=== PATIENT | male | born 1965 | race Caucasian/White ===

== ENCOUNTER 2018-02-15 10:29 | Inpatient (IN) | payer MEDICAID ==
[~2018-02-15] VITALS: Ht 190.5 cm; Wt 107.6 kg
[2018-02-15] MEDS ORDERED: OXYC10TA6 PO (10:43)
[2018-02-15] MEDS ORDERED: OXYC40TA27 PO (10:43)
[2018-02-15] MEDS ORDERED: GABA-827 PO (10:43)
[2018-02-15] MEDS ORDERED: methylPREDNISolone SOD SUCC 125 MG/2 ML IVPush ONE (11:00)
[2018-02-15] MEDS ORDERED: ONDANSETRON 2MG/ML, 2ML IVPush ONE (11:00)
[2018-02-15] MEDS ORDERED: ONDANSETRON 2MG/ML, 2ML ONE (11:07)
[2018-02-15] MEDS ORDERED: HYDROmorphone 2 MG/ML, 1ML ONE (11:07)
[2018-02-15] MEDS ORDERED: methylPREDNISolone SOD SUCC 125 MG/2 ML ONE (11:07)
[2018-02-15 11:32] LABS: BASOPHILS # (AUTO) 0.01 x10^3/uL (0-0.1); BASOPHILS % (AUTO) 0 % (0-1); EOSINOPHILS # (AUTO) 0.02 x10^3/uL (0-0.4); EOSINOPHILS % (AUTO) 0 % (1-7); LYMPHOCYTES # (AUTO) 0.35 x10^3/uL (1-3.4); LYMPHOCYTES % (AUTO) 8 % (22-44); MD NO; MEAN CORPUSCULAR HEMOGLOBIN 30.1 pg (27.5-34.5); MEAN CORPUSCULAR HGB CONC 34.3 g/dL (33.2-36.2); MEAN CORPUSCULAR VOLUME 87.9 fL (81-97); MEAN PLATELET VOLUME 6.9 fL (7.4-10.4); MONOCYTES # (AUTO) 0.53 x10^3/uL (0.2-0.8); MONOCYTES % (AUTO) 11 % (2-9); NEUTROPHILS # (AUTO) 3.69 x10^3/uL (1.8-6.8); NEUTROPHILS % (AUTO) 80 % (42-75); PLATELET COUNT 303 x10^3/uL (130-400); RED CELL DISTRIBUTION WIDTH 14.6 % (9.4-14.8)
[2018-02-15] MEDS: HYDROmorphone 2 MG/ML, 1ML IVPush PRN ×2 (11:39→12:02)
[2018-02-15 11:45] LABS: ALANINE AMINOTRANSFERASE 40 U/L (12-78); ALBUMIN 3.5 g/dL (3.4-5.0); CALCIUM 8.4 mg/dL (8.5-10.1); CHLORIDE 106 mmol/L (98-107)
[2018-02-15] MEDS ORDERED: SODIUM CHLORIDE FLUSH 10ML SYR IVF ONE (12:00)
[2018-02-15 12:12] LABS: ALKALINE PHOSPHATASE 94 U/L (45-117); ANION GAP 10 mmol/L (5-15); BILIRUBIN,TOTAL 0.4 mg/dL (0.2-1.0); TOTAL PROTEIN 6.2 g/dL (6.4-8.2)
[2018-02-15] MEDS ORDERED: KETOROLAC 30 MG/1 ML ONE (13:12)
[2018-02-15] MEDS ORDERED: ONDANSETRON 2MG/ML, 2ML IVPush PRN (13:30)
[2018-02-15] MEDS ORDERED: KETOROLAC 30 MG/1 ML IVPush ONE (13:30)
[2018-02-15] MEDS ORDERED: hydrALAzine 20 MG/ML, 1ML IVPush PRN (13:30)
[2018-02-15] MEDS ORDERED: DOCUSATE 100 MG CAPSULE PO PRN (13:30)
[2018-02-15] MEDS ORDERED: POLYETHYLENE GLYCOL 17 GM PACKET PO PRN (13:30)
[2018-02-15] MEDS ORDERED: ACETAMINOPHEN 325 MG TABLET PO PRN (13:30)
[2018-02-15] MEDS ORDERED: BISACODYL 10 MG SUPP PR PRN (13:30)
[2018-02-15] MEDS ORDERED: FURO20TA3 PO (13:58)
[2018-02-15] MEDS ORDERED: CETI10CA PO (13:58)
[2018-02-15] MEDS ORDERED: MONT10TA9 PO (13:58)
[2018-02-15] MEDS ORDERED: [UNRECOGNIZED DRUG - CODE] TP (13:58)
[2018-02-15] MEDS ORDERED: OXYB5TAB7 PO (13:58)
[2018-02-15] MEDS ORDERED: PREG75CA PO (13:58)
[2018-02-15] MEDS ORDERED: BUSP5TAB2 PO (13:58)
[2018-02-15] MEDS ORDERED: METO50TA82 PO (13:58)
[2018-02-15] MEDS ORDERED: DOXY100C PO (13:58)
[2018-02-15] MEDS ORDERED: ASCO500T12 PO (13:58)
[2018-02-15] MEDS ORDERED: POLY17PO5 PO (13:58)
[2018-02-15] MEDS ORDERED: FENO145T30 PO (13:58)
[2018-02-15] MEDS ORDERED: CARI350T PO (13:58)
[2018-02-15] MEDS ORDERED: FERR325T17 PO (13:58)
[2018-02-15] MEDS ORDERED: FAMO20TA7 PO (13:58)
[2018-02-15] MEDS ORDERED: CALC200T3 PO (13:58)
[2018-02-15] MEDS ORDERED: DILTIAZEM 2% TP (13:58)
[2018-02-15] MEDS ORDERED: INDO50CA5 PO (13:58)
[2018-02-15] MEDS ORDERED: POTA20PA25 PO (13:58)
[2018-02-15] MEDS ORDERED: DIME240C PEG (13:58)
[2018-02-15] MEDS ORDERED: CHOL100011 PO (13:58)
[2018-02-15 14:36] VITALS: BP 158/78
[2018-02-15] MEDS ORDERED: ALLO100T30 PO (14:54)
[2018-02-15] MEDS ORDERED: MULT-717 PO (14:54)
[2018-02-15] MEDS ORDERED: CARISOPRODOL 350 MG TABLET PO PRN (15:30)
[2018-02-15] MEDS ORDERED: OxyconTIN ER 40 MG TAB.ER PO SCH (15:30)
[2018-02-15] MEDS ORDERED: OxyconTIN ER 20 MG TAB.ER ONE (15:36)
[2018-02-15] MEDS: ENOXAPARIN 40 MG/0.4 ML SQ SCH (15:41)
[2018-02-15] MEDS: INDOMETHACIN 50 MG CAPSULE PO SCH ×2 (15:41→20:38)
[2018-02-15] MEDS: OXYcodone IR 30 MG TABLET PO PRN ×2 (17:12→21:10)
[2018-02-15] MEDS: METOPROLOL TARTRATE 25 MG TABLET PO SCH (17:12)
[2018-02-15] MEDS ORDERED: OXYMETAZOLINE HCL HOMEMISC PRN (17:30)
[2018-02-15 18:45] VITALS: BP 162/90
[2018-02-15] MEDS ORDERED: KETOROLAC 30 MG/1 ML IV PRN (19:30)
[2018-02-15] MEDS: FENOFIBRATE 145 MG TABLET PO SCH (20:38)
[2018-02-15] MEDS: ALLOPURINOL 100 MG TABLET PO SCH (20:38)
[2018-02-15] MEDS: CALCIUM CARBONATE 500 MG TAB.CHEW PO SCH (20:38)
[2018-02-15] MEDS: FAMOTIDINE 20 MG TABLET PO SCH (20:38)
[2018-02-15] MEDS: PREGABALIN 75 MG CAPSULE PO SCH (20:38)
[2018-02-15] MEDS: SODIUM CHLORIDE FLUSH 10ML SYR IVF SCH (20:39)
[2018-02-15] MEDS: BUSPIRONE 5 MG TABLET PO SCH (20:39)
[2018-02-15] MEDS: DIMETHYL FUMARATE 240 MG PO SCH (20:41)
[2018-02-15] MEDS: DOXYCYCLINE 50MG CAPSULE PO SCH (21:57)
[2018-02-15] MEDS: OxyconTIN ER 20 MG TAB.ER PO SCH (23:27)
[2018-02-16] MEDS: OXYcodone IR 30 MG TABLET PO PRN ×6 (01:17→21:25)
[2018-02-16 01:31] VITALS: BP 144/79
[2018-02-16] MEDS: METOPROLOL TARTRATE 25 MG TABLET PO SCH ×2 (05:26→17:25)
[2018-02-16] MEDS: OXYMETAZOLINE NASAL SPRAY 0.05%, 15ML HOMEMISC PRN ×2 (05:47→16:57)
[2018-02-16 06:50] VITALS: BP 151/76
[2018-02-16] MEDS: CALCIUM CARBONATE 500 MG TAB.CHEW PO SCH ×2 (08:00→20:25)
[2018-02-16] MEDS: ASCORBIC ACID 500 MG TABLET PO SCH (08:00)
[2018-02-16] MEDS: FUROSEMIDE 20 MG TABLET PO SCH (08:00)
[2018-02-16] MEDS: BUSPIRONE 5 MG TABLET PO SCH ×2 (08:00→20:25)
[2018-02-16] MEDS: ALLOPURINOL 100 MG TABLET PO SCH ×2 (08:00→20:25)
[2018-02-16] MEDS: SODIUM CHLORIDE FLUSH 10ML SYR IVF SCH ×2 (08:00→20:27)
[2018-02-16] MEDS: FAMOTIDINE 20 MG TABLET PO SCH ×2 (08:00→20:25)
[2018-02-16] MEDS: DIMETHYL FUMARATE 240 MG PO SCH ×2 (08:00→20:15)
[2018-02-16] MEDS: DOXYCYCLINE 50MG CAPSULE PO SCH ×2 (08:01→20:25)
[2018-02-16] MEDS: OxyconTIN ER 20 MG TAB.ER PO SCH ×3 (08:01→23:30)
[2018-02-16] MEDS: FERROUS SULFATE 325 MG TABLET PO SCH (08:01)
[2018-02-16] MEDS: CHOLECALCIFEROL 1,000 UNIT TABLET PO SCH (08:01)
[2018-02-16] MEDS: CETIRIZINE 10 MG TABLET PO SCH (08:01)
[2018-02-16] MEDS: INDOMETHACIN 50 MG CAPSULE PO SCH ×3 (08:01→20:25)
[2018-02-16] MEDS: PREGABALIN 75 MG CAPSULE PO SCH ×2 (08:01→20:25)
[2018-02-16] MEDS: LIDODERM 5% PATCH TD SCH (09:09)
[2018-02-16 13:22] VITALS: BP 131/76
[2018-02-16] MEDS: ENOXAPARIN 40 MG/0.4 ML SQ SCH (15:21)
[2018-02-16 18:46] VITALS: BP 134/70
[2018-02-16] MEDS: FENOFIBRATE 145 MG TABLET PO SCH (20:25)
[2018-02-17] MEDS: OXYcodone IR 30 MG TABLET PO PRN ×5 (01:41→20:31)
[2018-02-17 01:52] VITALS: BP 147/55
[2018-02-17] MEDS: METOPROLOL TARTRATE 25 MG TABLET PO SCH ×2 (05:35→17:23)
[2018-02-17] MEDS: FAMOTIDINE 20 MG TABLET PO SCH ×2 (08:09→19:43)
[2018-02-17] MEDS: CHOLECALCIFEROL 1,000 UNIT TABLET PO SCH (08:09)
[2018-02-17] MEDS: CETIRIZINE 10 MG TABLET PO SCH (08:09)
[2018-02-17] MEDS: LIDODERM 5% PATCH TD SCH (08:09)
[2018-02-17] MEDS: BUSPIRONE 5 MG TABLET PO SCH ×2 (08:09→19:44)
[2018-02-17] MEDS: OxyconTIN ER 20 MG TAB.ER PO SCH ×3 (08:09→23:15)
[2018-02-17] MEDS: FERROUS SULFATE 325 MG TABLET PO SCH (08:09)
[2018-02-17] MEDS: ASCORBIC ACID 500 MG TABLET PO SCH (08:09)
[2018-02-17 08:10] VITALS: BP 142/69
[2018-02-17] MEDS: OXYMETAZOLINE NASAL SPRAY 0.05%, 15ML HOMEMISC PRN (08:10)
[2018-02-17] MEDS: CALCIUM CARBONATE 500 MG TAB.CHEW PO SCH ×2 (08:10→19:44)
[2018-02-17] MEDS: PREGABALIN 75 MG CAPSULE PO SCH ×2 (08:10→19:44)
[2018-02-17] MEDS: DOXYCYCLINE 50MG CAPSULE PO SCH ×2 (08:10→19:43)
[2018-02-17] MEDS: FUROSEMIDE 20 MG TABLET PO SCH (08:10)
[2018-02-17] MEDS: INDOMETHACIN 50 MG CAPSULE PO SCH ×3 (08:10→19:44)
[2018-02-17] MEDS: SODIUM CHLORIDE FLUSH 10ML SYR IVF SCH ×2 (08:11→19:45)
[2018-02-17] MEDS: DIMETHYL FUMARATE 240 MG PO SCH ×2 (08:11→19:47)
[2018-02-17] MEDS: ALLOPURINOL 100 MG TABLET PO SCH ×2 (08:11→19:43)
[2018-02-17 13:52] VITALS: BP 127/66
[2018-02-17] MEDS: ENOXAPARIN 40 MG/0.4 ML SQ SCH (15:37)
[2018-02-17 19:16] VITALS: BP 119/63
[2018-02-17] MEDS: FENOFIBRATE 145 MG TABLET PO SCH (19:44)
[2018-02-18 01:12] VITALS: BP 110/58
[2018-02-18] MEDS: OXYcodone IR 30 MG TABLET PO PRN ×2 (02:55→07:56)
[2018-02-18] MEDS: METOPROLOL TARTRATE 25 MG TABLET PO SCH (05:30)
[2018-02-18 07:00] VITALS: BP 166/86
[2018-02-18] MEDS: LIDODERM 5% PATCH TD SCH (07:56)
[2018-02-18] MEDS: PREGABALIN 75 MG CAPSULE PO SCH (07:56)
[2018-02-18] MEDS: FUROSEMIDE 20 MG TABLET PO SCH (07:56)
[2018-02-18] MEDS: OxyconTIN ER 20 MG TAB.ER PO SCH (07:56)
[2018-02-18] MEDS: CALCIUM CARBONATE 500 MG TAB.CHEW PO SCH (07:57)
[2018-02-18] MEDS: ASCORBIC ACID 500 MG TABLET PO SCH (07:57)
[2018-02-18] MEDS: BUSPIRONE 5 MG TABLET PO SCH (07:57)
[2018-02-18] MEDS: ALLOPURINOL 100 MG TABLET PO SCH (07:57)
[2018-02-18] MEDS: CHOLECALCIFEROL 1,000 UNIT TABLET PO SCH (07:57)
[2018-02-18] MEDS: CETIRIZINE 10 MG TABLET PO SCH (07:57)
[2018-02-18] MEDS: FAMOTIDINE 20 MG TABLET PO SCH (07:58)
[2018-02-18] MEDS: INDOMETHACIN 50 MG CAPSULE PO SCH (07:58)
[2018-02-18] MEDS: FERROUS SULFATE 325 MG TABLET PO SCH (07:58)
[2018-02-18] MEDS: DOXYCYCLINE 50MG CAPSULE PO SCH (08:01)
[2018-02-18] MEDS: DIMETHYL FUMARATE 240 MG PO SCH (08:06)
[2018-02-18] MEDS: SODIUM CHLORIDE FLUSH 10ML SYR IVF SCH (08:08)
== END 2018-02-18 10:06 | disposition home or self-care (01) | DRG 60 ==
LOC: ED 13:19 → EDIP 13:25 → 3NW 14:08 → DCLOUNGE 02-18 09:57
PROVIDERS: ADMIT Hospitalist; ATTEND Hospitalist
DX: G35 Multiple sclerosis (principal); G89.29 Other chronic pain; N31.9 Neuromuscular dysfunction of bladder, unspecified; W18.39XA Other fall on same level, initial encounter; Y93.89 Activity, other specified; Y92.512 Supermarket, store or market as the place of occurrence of the external cause; Y99.8 Other external cause status; R73.9 Hyperglycemia, unspecified; M54.6 Pain in thoracic spine
CPT/HCPCS: 36415; 72072; 72128; 80053; 85025; 93970; 96374; 96375; 99285; G0378; J1170; J1650; J1885; J2405; J2930

== ENCOUNTER 2018-02-19 10:28 | Inpatient (IN) | payer MEDICAID ==
[~2018-02-19] VITALS: Ht 190.5 cm; Wt 111.0 kg
[~2018-02-19 10:28] MED LIST: ALLO100T30 PO; ASCO500T12 PO; BUSP5TAB2 PO; CALC200T3 PO; CARI350T PO; CETI10CA PO; CHOL100011 PO; DILTIAZEM 2% TP; DIME240C PEG; DOXY100C PO; FAMO20TA7 PO; FENO145T30 PO; FERR325T17 PO; FURO20TA3 PO; GABA-827 PO; INDO50CA5 PO; METO50TA82 PO; MONT10TA9 PO; MULT-717 PO; OXYB5TAB7 PO; OXYC10TA6 PO; OXYC40TA27 PO; POLY17PO5 PO; POTA20PA25 PO; PREG75CA PO; [UNRECOGNIZED DRUG - CODE] TP
[2018-02-19] MEDS ORDERED: HYDROmorphone 2 MG/ML, 1ML ONE ×3 (11:09→13:33)
[2018-02-19] MEDS: HYDROmorphone 1 MG/ML, 1ML IVPush PRN ×2 (11:28→12:01)
[2018-02-19 11:47] LABS: BASOPHILS # (AUTO) 0.02 x10^3/uL (0-0.1); BASOPHILS % (AUTO) 0 % (0-1); EOSINOPHILS # (AUTO) 0.02 x10^3/uL (0-0.4); EOSINOPHILS % (AUTO) 0 % (1-7); LYMPHOCYTES # (AUTO) 0.74 x10^3/uL (1-3.4); LYMPHOCYTES % (AUTO) 11 % (22-44); MD NO; MEAN CORPUSCULAR VOLUME 88.2 fL (81-97); MEAN PLATELET VOLUME 6.9 fL (7.4-10.4); MONOCYTES # (AUTO) 0.94 x10^3/uL (0.2-0.8); MONOCYTES % (AUTO) 14 % (2-9); NEUTROPHILS # (AUTO) 4.88 x10^3/uL (1.8-6.8); NEUTROPHILS % (AUTO) 74 % (42-75); PLATELET COUNT 326 x10^3/uL (130-400); RED BLOOD COUNT 5.24 x10^6/uL (4.38-5.82)
[2018-02-19 11:50] LABS: ALANINE AMINOTRANSFERASE 42 U/L (12-78); ALBUMIN 3.4 g/dL (3.4-5.0); ANION GAP 8 mmol/L (5-15); CALCIUM 7.9 mg/dL (8.5-10.1); CHLORIDE 107 mmol/L (98-107)
[2018-02-19 11:51] LABS: MICROSCOPIC NOT IND
[2018-02-19 11:53] LABS: ALKALINE PHOSPHATASE 84 U/L (45-117); BILIRUBIN,TOTAL 0.6 mg/dL (0.2-1.0); CREATININE 0.89 mg/dL (0.7-1.3)
[2018-02-19 12:00] LABS: CULTURE INDICATED? NO
[2018-02-19] MEDS ORDERED: HYDROmorphone 2 MG/ML, 1ML IVPush PRN (13:30)
[2018-02-19] MEDS ORDERED: methylPREDNISolone SOD SUCC 125 MG/2 ML IVPush SCH (14:00)
[2018-02-19] MEDS ORDERED: POTASSIUM CHLORIDE 20 MEQ TAB.ER.PRT PO ONE (14:30)
[2018-02-19] MEDS ORDERED: POLYETHYLENE GLYCOL 17 GM PACKET PO PRN (14:30)
[2018-02-19] MEDS ORDERED: ACETAMINOPHEN 325 MG TABLET PO PRN (14:30)
[2018-02-19] MEDS ORDERED: ONDANSETRON ODT 4 MG PO PRN (14:30)
[2018-02-19] MEDS ORDERED: ONDANSETRON 2MG/ML, 2ML IVPush PRN (14:30)
[2018-02-19] MEDS ORDERED: CARISOPRODOL 350 MG TABLET PO PRN (14:30)
[2018-02-19] MEDS ORDERED: LIDODERM 5% PATCH TD PRN (14:30)
[2018-02-19] MEDS ORDERED: DOCUSATE 100 MG CAPSULE PO PRN (14:30)
[2018-02-19 15:21] VITALS: BP 170/84
[2018-02-19] MEDS: OxyconTIN ER 40 MG TAB.ER PO SCH ×2 (15:34→21:04)
[2018-02-19] MEDS: ENOXAPARIN 40 MG/0.4 ML SQ SCH (15:34)
[2018-02-19] MEDS: INDOMETHACIN 50 MG CAPSULE PO SCH ×2 (15:43→21:04)
[2018-02-19] MEDS ORDERED: OXYcodone IR 5MG TABLET ONE (16:25)
[2018-02-19] MEDS: OXYcodone IR 30 MG TABLET PO PRN ×2 (16:29→21:05)
[2018-02-19] MEDS: TEMPLATE NON-FORMULARY MED. (Dimethyl Fumarate (Tecfidera) 240 MG) PO SCH (21:00)
[2018-02-19] MEDS ORDERED: GABAPENTIN 250 MG/5 ML ORAL SOL PO SCH (21:00)
[2018-02-19 21:01] VITALS: BP 158/106
[2018-02-19] MEDS: DOXYCYCLINE 100MG CAP PO SCH (21:03)
[2018-02-19] MEDS: BUSPIRONE 5 MG TABLET PO SCH (21:03)
[2018-02-19] MEDS: METOPROLOL TARTRATE 50 MG TABLET PO SCH (21:04)
[2018-02-19] MEDS: PREGABALIN 75 MG CAPSULE PO SCH (21:04)
[2018-02-19] MEDS: FENOFIBRATE 145 MG TABLET PO SCH (21:05)
[2018-02-19] MEDS: MONTELUKAST 10 MG TABLET PO SCH (21:05)
[2018-02-19] MEDS: CALCIUM CARBONATE 500 MG TAB.CHEW PO SCH (21:05)
[2018-02-19] MEDS: FAMOTIDINE 20 MG TABLET PO SCH (21:05)
[2018-02-19] MEDS: ALLOPURINOL 100 MG TABLET PO SCH (21:05)
[2018-02-19 22:46] VITALS: BP 134/74
[2018-02-20 01:24] VITALS: BP 131/76
[2018-02-20] MEDS: OXYcodone IR 30 MG TABLET PO PRN ×6 (01:30→22:10)
[2018-02-20 06:09] LABS: BASOPHILS % (AUTO) 0 % (0-1); EOSINOPHILS % (AUTO) 0 % (1-7); LYMPHOCYTES # (AUTO) 0.33 x10^3/uL (1-3.4); LYMPHOCYTES % (AUTO) 5 % (22-44); MD NO; MEAN CORPUSCULAR VOLUME 88.2 fL (81-97); MEAN PLATELET VOLUME 6.7 fL (7.4-10.4); MONOCYTES # (AUTO) 0.15 x10^3/uL (0.2-0.8); MONOCYTES % (AUTO) 2 % (2-9); NEUTROPHILS # (AUTO) 6.73 x10^3/uL (1.8-6.8); NEUTROPHILS % (AUTO) 93 % (42-75); PLATELET COUNT 323 x10^3/uL (130-400); RED CELL DISTRIBUTION WIDTH 14.6 % (9.4-14.8)
[2018-02-20 06:14] LABS: ANION GAP 9 mmol/L (5-15); CALCIUM 8.5 mg/dL (8.5-10.1); CHLORIDE 106 mmol/L (98-107); CREATININE 0.86 mg/dL (0.7-1.3)
[2018-02-20 07:44] VITALS: BP 160/104
[2018-02-20] MEDS: TEMPLATE NON-FORMULARY MED. (Dimethyl Fumarate (Tecfidera) 240 MG) PO SCH ×2 (08:37→21:00)
[2018-02-20] MEDS: ALLOPURINOL 100 MG TABLET PO SCH ×2 (08:38→21:41)
[2018-02-20] MEDS: BUSPIRONE 5 MG TABLET PO SCH ×2 (08:38→21:41)
[2018-02-20] MEDS: MULTIVITAMINS/MINERALS TABLET PO SCH (08:38)
[2018-02-20] MEDS: CETIRIZINE 10 MG TABLET PO SCH (08:38)
[2018-02-20] MEDS: ASCORBIC ACID 500 MG TABLET PO SCH (08:38)
[2018-02-20] MEDS: CHOLECALCIFEROL 1,000 UNIT TABLET PO SCH (08:38)
[2018-02-20] MEDS: CALCIUM CARBONATE 500 MG TAB.CHEW PO SCH ×2 (08:38→21:40)
[2018-02-20] MEDS: INDOMETHACIN 50 MG CAPSULE PO SCH ×3 (08:38→21:42)
[2018-02-20] MEDS: METOPROLOL TARTRATE 50 MG TABLET PO SCH ×2 (08:39→21:42)
[2018-02-20] MEDS: FAMOTIDINE 20 MG TABLET PO SCH ×2 (08:39→21:41)
[2018-02-20] MEDS: OXYBUTYNIN CHLORIDE 5 MG TABLET PO SCH (08:39)
[2018-02-20] MEDS: PREGABALIN 75 MG CAPSULE PO SCH ×2 (08:39→21:41)
[2018-02-20] MEDS: FERROUS SULFATE 325 MG TABLET PO SCH (08:39)
[2018-02-20] MEDS: OxyconTIN ER 40 MG TAB.ER PO SCH ×3 (08:39→21:41)
[2018-02-20] MEDS: DOXYCYCLINE 100MG CAP PO SCH ×2 (08:39→21:42)
[2018-02-20 10:52] VITALS: BP 146/92
[2018-02-20 12:10] VITALS: BP 144/78
[2018-02-20] MEDS: ENOXAPARIN 40 MG/0.4 ML SQ SCH (15:47)
[2018-02-20 18:58] VITALS: BP 129/73
[2018-02-20] MEDS: FENOFIBRATE 145 MG TABLET PO SCH (21:41)
[2018-02-20] MEDS: MONTELUKAST 10 MG TABLET PO SCH (21:41)
[2018-02-21 00:32] VITALS: BP 130/69
[2018-02-21] MEDS: OXYcodone IR 30 MG TABLET PO PRN ×3 (02:12→11:47)
[2018-02-21 07:09] VITALS: BP 143/81
[2018-02-21] MEDS: FAMOTIDINE 20 MG TABLET PO SCH (07:40)
[2018-02-21] MEDS: METOPROLOL TARTRATE 50 MG TABLET PO SCH (07:40)
[2018-02-21] MEDS: CHOLECALCIFEROL 1,000 UNIT TABLET PO SCH (07:40)
[2018-02-21] MEDS: OXYBUTYNIN CHLORIDE 5 MG TABLET PO SCH (07:40)
[2018-02-21] MEDS: BUSPIRONE 5 MG TABLET PO SCH (07:40)
[2018-02-21] MEDS: CETIRIZINE 10 MG TABLET PO SCH (07:41)
[2018-02-21] MEDS: TEMPLATE NON-FORMULARY MED. (Dimethyl Fumarate (Tecfidera) 240 MG) PO SCH (07:41)
[2018-02-21] MEDS: ALLOPURINOL 100 MG TABLET PO SCH (07:41)
[2018-02-21] MEDS: MULTIVITAMINS/MINERALS TABLET PO SCH (07:41)
[2018-02-21] MEDS: PREGABALIN 75 MG CAPSULE PO SCH (07:41)
[2018-02-21] MEDS: FERROUS SULFATE 325 MG TABLET PO SCH (07:41)
[2018-02-21] MEDS: DOXYCYCLINE 100MG CAP PO SCH (07:41)
[2018-02-21] MEDS: INDOMETHACIN 50 MG CAPSULE PO SCH (07:41)
[2018-02-21] MEDS: CALCIUM CARBONATE 500 MG TAB.CHEW PO SCH (07:41)
[2018-02-21] MEDS: ASCORBIC ACID 500 MG TABLET PO SCH (07:41)
[2018-02-21] MEDS: OxyconTIN ER 40 MG TAB.ER PO SCH (09:22)
[2018-02-21] MEDS ORDERED: PRED10TA PO (10:27)
== END 2018-02-21 12:40 | disposition home health service (06) | DRG 59 ==
LOC: ED 13:24 → ICU 13:32
PROVIDERS: ADMIT Internal Medicine; ATTEND Internal Medicine
DX: G35 Multiple sclerosis (principal); F11.20 Opioid dependence, uncomplicated; E87.6 Hypokalemia; N31.9 Neuromuscular dysfunction of bladder, unspecified; T38.0X5A Adverse effect of glucocorticoids and synthetic analogues, initial encounter; H54.7 Unspecified visual loss; G89.29 Other chronic pain; Z88.8 Allergy status to other drugs, medicaments and biological substances; Z88.5 Allergy status to narcotic agent; Y92.89 Other specified places as the place of occurrence of the external cause
CPT/HCPCS: 36415; 80048; 80053; 81003; 83735; 85025; 93005; 96365; 96375; 96376; G0378; J1170; J1650; J2930; J7512

== ENCOUNTER 2018-05-13 08:19 | Inpatient (IN) | payer MEDICAID ==
[~2018-05-13] VITALS: Ht 190.5 cm; Wt 113.2 kg
[~2018-05-13 08:19] MED LIST changes: +PRED10TA PO
[2018-05-13] MEDS ORDERED: HYDROmorphone 1 MG/ML, 1ML IM ONE (09:00)
[2018-05-13] MEDS ORDERED: HYDROmorphone 1 MG/ML, 1ML ONE ×3 (09:16→13:25)
[2018-05-13] MEDS ORDERED: HYDROmorphone 1 MG/ML, 1ML IV ONE (09:30)
[2018-05-13] MEDS ORDERED: methylPREDNISolone SOD SUCC 125 MG/2 ML ONE (09:59)
[2018-05-13] MEDS ORDERED: methylPREDNISolone SOD SUCC 125 MG/2 ML IVPush SCH (10:00)
--- NOTE | 2018-05-13 10:54 | NUR ---
PT STATES HE IS EXPERIENCING AN MS EXACERBATION INCLUDING TREMOURS, CHILLS, AND VISUAL DISTURBANCES. 125 SLUMEDROL WAS GIVEN PER ERPA. PT STYATES MED NOT HELPING AND DOES NOT FEEL READY FOR DC FROM ED. SAHRA AND AWARE. DR ALICEA TO SEE PT.
--- NOTE | 2018-05-13 11:08 | NUR ---
MD TO BEDSIDE. AWAITING NEW ORDERS.
[2018-05-13] MEDS: HYDROmorphone 2 MG/ML, 1ML IVPush PRN ×2 (11:29→13:27)
[2018-05-13 11:43] LABS: ALANINE AMINOTRANSFERASE 31 U/L (12-78); ALBUMIN 3.6 g/dL (3.4-5.0); ANION GAP 10 mmol/L (5-15); CALCIUM 8.8 mg/dL (8.5-10.1); CHLORIDE 110 mmol/L (98-107); CREATININE 0.88 mg/dL (0.7-1.3); INTERNATIONAL NORMALIZED RATIO 1.15 (0.93-1.1); PROTHROMBIN TIME 12.1 Seconds (9.6-11.5)
[2018-05-13 11:46] LABS: ALKALINE PHOSPHATASE 84 U/L (45-117); BILIRUBIN,TOTAL 1.1 mg/dL (0.2-1.0); TOTAL PROTEIN 6.3 g/dL (6.4-8.2)
[2018-05-13] MEDS ORDERED: SODIUM CHLORIDE FLUSH 10ML SYR IVF PRN (12:00)
[2018-05-13 12:18] LABS: MD YES; MEAN CORPUSCULAR HEMOGLOBIN 31.3 pg (27.5-34.5); MEAN CORPUSCULAR HGB CONC 34.8 g/dL (33.2-36.2); MEAN CORPUSCULAR VOLUME 90.1 fL (81-97); MEAN PLATELET VOLUME 7.1 fL (7.4-10.4); PLATELET COUNT 289 x10^3/uL (130-400); RED BLOOD COUNT 4.83 x10^6/uL (4.38-5.82)
[2018-05-13 12:54] LABS: CULTURE INDICATED? YES; MICROSCOPIC INDICATED
[2018-05-13] MEDS ORDERED: LIDODERM 5% PATCH TD PRN (13:00)
[2018-05-13] MEDS ORDERED: ACETAMINOPHEN 325 MG TABLET PO PRN (13:00)
[2018-05-13] MEDS ORDERED: hydrALAzine 20 MG/ML, 1ML IVPush PRN (13:00)
[2018-05-13] MEDS ORDERED: BACLOFEN 10 MG TABLET PO PRN (13:00)
[2018-05-13] MEDS ORDERED: ONDANSETRON 2MG/ML, 2ML IVPush PRN (13:00)
[2018-05-13] MEDS ORDERED: ENALAPRILAT 1.25 MG/ML, 2ML IVPush PRN (13:00)
[2018-05-13] MEDS ORDERED: ONDANSETRON ODT 4 MG PO PRN (13:00)
[2018-05-13 13:08] LABS: LYMPH#(MANUAL) 0.39 x10^3/uL (1-3.4); LYMPHS% (MANUAL) 7 % (22-44); MONOS#(MANUAL) 0.28 x10^3/uL (0.3-2.7); MONOS% (MANUAL) 5 % (2-9); SEG#(MANUAL) 4.93 x10^3/uL (1.8-6.8); SEGS% (MANUAL) 88 % (42-75)
[2018-05-13 13:09] LABS: <PLATELET ESTIMATE> ADEQUATE; <PLT MORPHOLOGY> NORMAL PLT MORPH; <RBC MORPHOLOGY> NORMAL
--- NOTE | 2018-05-13 13:29 | NUR ---
REPORT TO DEQUAN MAYS.
[2018-05-13 14:07] VITALS: BP 157/77
[2018-05-13] MEDS: OXYcodone IR 30 MG TABLET PO SCH ×4 (14:41→20:50)
[2018-05-13] MEDS: ENOXAPARIN 40 MG/0.4 ML SQ SCH (14:41)
[2018-05-13] MEDS: CARISOPRODOL 350 MG TABLET PO SCH ×2 (14:41→21:49)
[2018-05-13] MEDS ORDERED: OxyconTIN ER 20 MG TAB.ER ONE ×2 (15:44→21:43)
[2018-05-13] MEDS: INDOMETHACIN 50 MG CAPSULE PO SCH ×2 (15:53→21:49)
[2018-05-13] MEDS: OxyconTIN ER 40 MG TAB.ER PO SCH ×2 (15:53→21:49)
[2018-05-13 19:46] VITALS: BP 120/75
[2018-05-13] MEDS ORDERED: METOPROLOL TARTRATE 50 MG TABLET PO SCH (21:00)
[2018-05-13] MEDS: BUSPIRONE 5 MG TABLET PO SCH (21:47)
[2018-05-13] MEDS: FENOFIBRATE 145 MG TABLET PO SCH (21:48)
[2018-05-13] MEDS: CALCIUM CARBONATE 500 MG TAB.CHEW PO SCH (21:48)
[2018-05-13] MEDS: ALLOPURINOL 100 MG TABLET PO SCH (21:49)
[2018-05-13] MEDS: FAMOTIDINE 20 MG TABLET PO SCH (21:49)
[2018-05-13] MEDS: PREGABALIN 75 MG CAPSULE PO SCH (21:49)
[2018-05-13] MEDS: MONTELUKAST 10 MG TABLET PO SCH (21:49)
[2018-05-14 01:03] VITALS: BP 131/76
[2018-05-14] MEDS: OXYcodone IR 30 MG TABLET PO SCH ×8 (01:09→23:06)
[2018-05-14 06:59] LABS: BASOPHILS # (AUTO) 0.02 x10^3/uL (0-0.1); BASOPHILS % (AUTO) 0 % (0-1); EOSINOPHILS # (AUTO) 0.01 x10^3/uL (0-0.4); EOSINOPHILS % (AUTO) 0 % (1-7); LYMPHOCYTES # (AUTO) 0.82 x10^3/uL (1-3.4); LYMPHOCYTES % (AUTO) 10 % (22-44); MD NO; MEAN CORPUSCULAR HEMOGLOBIN 31.5 pg (27.5-34.5); MEAN CORPUSCULAR HGB CONC 34.5 g/dL (33.2-36.2); MEAN CORPUSCULAR VOLUME 91.1 fL (81-97); MEAN PLATELET VOLUME 6.9 fL (7.4-10.4); MONOCYTES # (AUTO) 1.01 x10^3/uL (0.2-0.8); MONOCYTES % (AUTO) 12 % (2-9); NEUTROPHILS # (AUTO) 6.41 x10^3/uL (1.8-6.8); NEUTROPHILS % (AUTO) 78 % (42-75); PLATELET COUNT 285 x10^3/uL (130-400); RED BLOOD COUNT 4.99 x10^6/uL (4.38-5.82)
[2018-05-14 07:04] LABS: ANION GAP 8 mmol/L (5-15); CALCIUM 8.4 mg/dL (8.5-10.1); CHLORIDE 111 mmol/L (98-107); CREATININE 0.99 mg/dL (0.7-1.3)
[2018-05-14] MEDS ORDERED: OxyconTIN ER 20 MG TAB.ER ONE ×3 (08:04→20:52)
[2018-05-14 08:10] VITALS: BP 134/72
[2018-05-14] MEDS: CARISOPRODOL 350 MG TABLET PO SCH ×3 (08:11→21:02)
[2018-05-14] MEDS: CHOLECALCIFEROL 1,000 UNIT TABLET PO SCH (08:11)
[2018-05-14] MEDS: INDOMETHACIN 50 MG CAPSULE PO SCH ×3 (08:11→21:02)
[2018-05-14] MEDS: ASCORBIC ACID 500 MG TABLET PO SCH (08:11)
[2018-05-14] MEDS: CALCIUM CARBONATE 500 MG TAB.CHEW PO SCH ×2 (08:11→21:01)
[2018-05-14] MEDS: BUSPIRONE 5 MG TABLET PO SCH ×2 (08:11→21:01)
[2018-05-14] MEDS: SENNA/DOCUSATE TABLET PO SCH (08:11)
[2018-05-14] MEDS: ALLOPURINOL 100 MG TABLET PO SCH ×2 (08:12→21:01)
[2018-05-14] MEDS: FERROUS SULFATE 325 MG TABLET PO SCH (08:12)
[2018-05-14] MEDS: METOPROLOL TARTRATE 50 MG TABLET PO SCH ×2 (08:12→21:02)
[2018-05-14] MEDS: FAMOTIDINE 20 MG TABLET PO SCH ×2 (08:12→21:02)
[2018-05-14] MEDS: OxyconTIN ER 40 MG TAB.ER PO SCH ×3 (08:12→21:00)
[2018-05-14] MEDS: PREGABALIN 75 MG CAPSULE PO SCH ×2 (08:12→21:01)
[2018-05-14] MEDS: LORATADINE 10 MG TABLET PO SCH (08:13)
[2018-05-14] MEDS: TEMPLATE NON-FORMULARY MED. (Multivits-Min/Fa/Lycopene/Lut** (Centrum Silver Tablet**) 1 T PO SCH (08:13)
[2018-05-14] MEDS: OXYBUTYNIN CHLORIDE 5 MG PO SCH (08:13)
[2018-05-14] MEDS: ENOXAPARIN 40 MG/0.4 ML SQ SCH (13:49)
[2018-05-14 14:06] VITALS: BP 162/87
[2018-05-14 15:10] LABS: % IRON SATURATION 36 % (20-55); IRON LEVEL 123 mcg/dL (65-175); TOTAL IRON BINDING CAPACITY 344 mcg/dL (250-450)
[2018-05-14 19:43] VITALS: BP 142/90
[2018-05-14] MEDS: MONTELUKAST 10 MG TABLET PO SCH (21:00)
[2018-05-14] MEDS: FENOFIBRATE 145 MG TABLET PO SCH (21:02)
[2018-05-15 01:20] VITALS: BP 132/74
[2018-05-15] MEDS: OXYcodone IR 30 MG TABLET PO SCH ×8 (01:59→23:04)
[2018-05-15] MEDS: PREGABALIN 75 MG CAPSULE PO SCH ×2 (08:16→20:01)
[2018-05-15] MEDS: CHOLECALCIFEROL 1,000 UNIT TABLET PO SCH (08:16)
[2018-05-15] MEDS: SENNA/DOCUSATE TABLET PO SCH (08:16)
[2018-05-15] MEDS: CARISOPRODOL 350 MG TABLET PO SCH ×3 (08:16→20:01)
[2018-05-15] MEDS: INDOMETHACIN 50 MG CAPSULE PO SCH ×3 (08:16→20:01)
[2018-05-15] MEDS: ASCORBIC ACID 500 MG TABLET PO SCH (08:16)
[2018-05-15] MEDS: BUSPIRONE 5 MG TABLET PO SCH ×2 (08:16→20:02)
[2018-05-15 08:17] VITALS: BP 155/72
[2018-05-15] MEDS: TEMPLATE NON-FORMULARY MED. (Multivits-Min/Fa/Lycopene/Lut** (Centrum Silver Tablet**) 1 T PO SCH (08:17)
[2018-05-15] MEDS: FAMOTIDINE 20 MG TABLET PO SCH ×2 (08:17→20:02)
[2018-05-15] MEDS: OXYBUTYNIN CHLORIDE 5 MG PO SCH (08:17)
[2018-05-15] MEDS: METOPROLOL TARTRATE 50 MG TABLET PO SCH ×2 (08:17→20:01)
[2018-05-15] MEDS: ALLOPURINOL 100 MG TABLET PO SCH ×2 (08:17→20:01)
[2018-05-15] MEDS: FERROUS SULFATE 325 MG TABLET PO SCH (08:17)
[2018-05-15] MEDS: LORATADINE 10 MG TABLET PO SCH (08:32)
[2018-05-15] MEDS: CALCIUM CARBONATE 500 MG TAB.CHEW PO SCH ×2 (08:32→20:01)
[2018-05-15] MEDS ORDERED: OxyconTIN ER 20 MG TAB.ER ONE ×3 (08:59→21:09)
[2018-05-15] MEDS: OxyconTIN ER 40 MG TAB.ER PO SCH ×3 (09:30→21:00)
[2018-05-15] MEDS: DOCUSATE 100 MG CAPSULE PO PRN (09:30)
[2018-05-15] MEDS: ENOXAPARIN 40 MG/0.4 ML SQ SCH (13:52)
[2018-05-15 14:00] VITALS: BP 148/84
[2018-05-15] MEDS: MONTELUKAST 10 MG TABLET PO SCH (20:02)
[2018-05-15 20:20] VITALS: BP 147/82
[2018-05-15] MEDS: FENOFIBRATE 145 MG TABLET PO SCH (21:11)
[2018-05-16] MEDS: OXYcodone IR 30 MG TABLET PO SCH ×8 (02:01→23:07)
[2018-05-16 02:54] VITALS: BP 145/80
[2018-05-16] MEDS: BISACODYL 10 MG SUPP PR PRN (05:34)
[2018-05-16] MEDS ORDERED: OxyconTIN ER 10 MG TAB.ER ONE (07:57)
[2018-05-16] MEDS ORDERED: OxyconTIN ER 20 MG TAB.ER ONE ×4 (07:57→20:06)
[2018-05-16 08:59] VITALS: BP 132/80
[2018-05-16] MEDS: OxyconTIN ER 40 MG TAB.ER PO SCH ×3 (09:00→21:00)
[2018-05-16] MEDS: ASCORBIC ACID 500 MG TABLET PO SCH (09:00)
[2018-05-16] MEDS: OXYBUTYNIN CHLORIDE 5 MG PO SCH (09:00)
[2018-05-16] MEDS: TEMPLATE NON-FORMULARY MED. (Multivits-Min/Fa/Lycopene/Lut** (Centrum Silver Tablet**) 1 T PO SCH (09:00)
[2018-05-16] MEDS: PREGABALIN 75 MG CAPSULE PO SCH ×2 (09:37→20:10)
[2018-05-16] MEDS: BUSPIRONE 5 MG TABLET PO SCH ×2 (09:37→20:10)
[2018-05-16] MEDS: CARISOPRODOL 350 MG TABLET PO SCH ×3 (09:39→20:10)
[2018-05-16] MEDS: ALLOPURINOL 100 MG TABLET PO SCH ×2 (09:39→20:11)
[2018-05-16] MEDS: FERROUS SULFATE 325 MG TABLET PO SCH (09:39)
[2018-05-16] MEDS: METOPROLOL TARTRATE 50 MG TABLET PO SCH ×2 (09:39→20:10)
[2018-05-16] MEDS: FAMOTIDINE 20 MG TABLET PO SCH ×2 (09:39→20:11)
[2018-05-16] MEDS: LORATADINE 10 MG TABLET PO SCH (09:40)
[2018-05-16] MEDS: CALCIUM CARBONATE 500 MG TAB.CHEW PO SCH ×2 (09:40→20:10)
[2018-05-16] MEDS: CHOLECALCIFEROL 1,000 UNIT TABLET PO SCH (09:40)
[2018-05-16] MEDS: SENNA/DOCUSATE TABLET PO SCH (09:40)
[2018-05-16] MEDS: INDOMETHACIN 50 MG CAPSULE PO SCH ×3 (09:41→20:10)
[2018-05-16] MEDS: ENOXAPARIN 40 MG/0.4 ML SQ SCH (12:46)
[2018-05-16 16:41] VITALS: BP 162/87
[2018-05-16 20:22] VITALS: BP 153/75
[2018-05-16] MEDS: MONTELUKAST 10 MG TABLET PO SCH (21:00)
[2018-05-16] MEDS: FENOFIBRATE 145 MG TABLET PO SCH (21:09)
[2018-05-16] MEDS: DOCUSATE 100 MG CAPSULE PO PRN (21:09)
[2018-05-16] MEDS ORDERED: HYDROmorphone 1 MG/ML, 1ML IV ONE (21:30)
[2018-05-16] MEDS ORDERED: HYDROmorphone 2 MG/ML, 1ML ONE (21:32)
[2018-05-17 02:12] VITALS: BP 166/80
[2018-05-17] MEDS: OXYcodone IR 30 MG TABLET PO SCH ×4 (02:18→11:25)
[2018-05-17] MEDS: BISACODYL 10 MG SUPP PR PRN (06:44)
[2018-05-17] MEDS ORDERED: OxyconTIN ER 20 MG TAB.ER ONE (08:10)
[2018-05-17 08:14] VITALS: BP 169/84
[2018-05-17] MEDS: BUSPIRONE 5 MG TABLET PO SCH (08:30)
[2018-05-17] MEDS: FAMOTIDINE 20 MG TABLET PO SCH (08:31)
[2018-05-17] MEDS: FERROUS SULFATE 325 MG TABLET PO SCH (08:31)
[2018-05-17] MEDS: CARISOPRODOL 350 MG TABLET PO SCH (08:31)
[2018-05-17] MEDS: ALLOPURINOL 100 MG TABLET PO SCH (08:31)
[2018-05-17] MEDS: METOPROLOL TARTRATE 50 MG TABLET PO SCH (08:31)
[2018-05-17] MEDS: PREGABALIN 75 MG CAPSULE PO SCH (08:31)
[2018-05-17] MEDS: ASCORBIC ACID 500 MG TABLET PO SCH (08:31)
[2018-05-17] MEDS: INDOMETHACIN 50 MG CAPSULE PO SCH (08:31)
[2018-05-17] MEDS: LORATADINE 10 MG TABLET PO SCH (08:31)
[2018-05-17] MEDS: CALCIUM CARBONATE 500 MG TAB.CHEW PO SCH (08:31)
[2018-05-17] MEDS: CHOLECALCIFEROL 1,000 UNIT TABLET PO SCH (08:31)
[2018-05-17] MEDS: SENNA/DOCUSATE TABLET PO SCH (08:32)
[2018-05-17] MEDS: OXYBUTYNIN CHLORIDE 5 MG PO SCH (08:36)
[2018-05-17] MEDS: TEMPLATE NON-FORMULARY MED. (Multivits-Min/Fa/Lycopene/Lut** (Centrum Silver Tablet**) 1 T PO SCH (08:36)
[2018-05-17] MEDS: OxyconTIN ER 40 MG TAB.ER PO SCH (09:00)
[2018-05-17] MEDS ORDERED: SENN1TAB8 PO (11:20)
[2018-05-17] MEDS ORDERED: METO50TA82 PO (11:20)
[2018-05-17 12:26] VITALS: BP 173/85
[2018-05-17] MEDS: ENOXAPARIN 40 MG/0.4 ML SQ SCH (12:33)
== END 2018-05-17 13:12 | disposition home or self-care (01) | DRG 59 ==
LOC: ED 09:14 → EDIP 12:00 → INTOOBSV 12:00 → 4NOR 13:53 → OBSVTOIN 05-15 13:45 → 4EST 05-15 16:33 → 4NOR 05-15 16:33 → DCLOUNGE 05-17 12:56
PROVIDERS: ADMIT Internal Medicine; ATTEND Internal Medicine
PROC: 0T9B70Z Drainage of Bladder with Drainage Device, Via Natural or Artificial Opening (ICD-10-PCS; principal; 2018-05-13)
DX: G35 Multiple sclerosis (principal); E44.1 Mild protein-calorie malnutrition; E66.9 Obesity, unspecified; Z68.31 Body mass index [BMI] 31.0-31.9, adult; E78.5 Hyperlipidemia, unspecified; G89.29 Other chronic pain; I10 Essential (primary) hypertension; J30.2 Other seasonal allergic rhinitis; K21.9 Gastro-esophageal reflux disease without esophagitis; F51.04 Psychophysiologic insomnia; D50.9 Iron deficiency anemia, unspecified; R25.1 Tremor, unspecified; M10.9 Gout, unspecified; S39.012A Strain of muscle, fascia and tendon of lower back, initial encounter; S83.91XA Sprain of unspecified site of right knee, initial encounter; W18.30XA Fall on same level, unspecified, initial encounter; Y93.89 Activity, other specified; Z88.8 Allergy status to other drugs, medicaments and biological substances; Z88.6 Allergy status to analgesic agent; Y92.009 Unspecified place in unspecified non-institutional (private) residence as the place of occurrence of the external cause; Y99.8 Other external cause status
CPT/HCPCS: 36415; 72110; 80048; 80053; 81001; 83540; 83550; 83735; 84100; 85025; 85610; 85730; 87086; 96374; 96375; 96376; 99285; G0378; J1170; J1650; J2930

== ENCOUNTER 2018-05-19 08:09 | Observation (INO) | payer MEDICAID ==
[~2018-05-19] VITALS: Ht 190.5 cm; Wt 108.6 kg
[~2018-05-19 08:09] MED LIST changes: +SENN1TAB8 PO
--- NOTE | 2018-05-19 08:16 | NUR ---
PATIENT ARRIVES [facility] FROM HOME WITH COMPLAINTS OF INCREASED BACK PAIN AND HE HAS OPEN BACK WOUND FROM MULTIPLE SURGERIES, DRESSING TO AREA. HE HAS A HISTORY OF MS. HE WAS DISCHARGED FROM HERE TWO DAYS AGO WHERE HE STAYED ABOUT A WEEK FOR AN EXACERBATION OF MS. HE IS GETTING DIFFICULTY WITH VISION. ABDOMEN AND BACK ARE VERY PAINFUL FOR HIM. PLACED IN GOWN AND RAILS UP. HE IS GOING THROUGH CHANGES IN HIS MEDICATIONS PER HIS NEUROLOGIST. HE HE IS AOX3 DISORIENTED TO DATE. ON MONITOR.
[2018-05-19] MEDS ORDERED: OXYcodone IR 30 MG TABLET PO ONE (09:00)
[2018-05-19 09:06] LABS: BASOPHILS # (AUTO) 0.01 x10^3/uL (0-0.1); BASOPHILS % (AUTO) 0 % (0-1); EOSINOPHILS # (AUTO) 0.08 x10^3/uL (0-0.4); EOSINOPHILS % (AUTO) 1 % (1-7); LYMPHOCYTES # (AUTO) 0.61 x10^3/uL (1-3.4); LYMPHOCYTES % (AUTO) 7 % (22-44); MD NO; MEAN CORPUSCULAR HEMOGLOBIN 30.8 pg (27.5-34.5); MEAN CORPUSCULAR HGB CONC 33.9 g/dL (33.2-36.2); MEAN CORPUSCULAR VOLUME 90.8 fL (81-97); MONOCYTES # (AUTO) 1.09 x10^3/uL (0.2-0.8); MONOCYTES % (AUTO) 12 % (2-9); NEUTROPHILS # (AUTO) 7.18 x10^3/uL (1.8-6.8); NEUTROPHILS % (AUTO) 80 % (42-75); PLATELET COUNT 318 x10^3/uL (130-400); RED BLOOD COUNT 5.72 x10^6/uL (4.38-5.82); RED CELL DISTRIBUTION WIDTH 12.4 % (9.4-14.8)
[2018-05-19 09:15] LABS: INTERNATIONAL NORMALIZED RATIO 1.17 (0.93-1.1); PROTHROMBIN TIME 12.2 Seconds (9.6-11.5)
[2018-05-19 09:17] LABS: ALBUMIN 3.4 g/dL (3.4-5.0); ANION GAP 9 mmol/L (5-15); CALCIUM 8.2 mg/dL (8.5-10.1); CHLORIDE 107 mmol/L (98-107)
[2018-05-19 09:20] LABS: ALANINE AMINOTRANSFERASE 47 U/L (12-78); ALKALINE PHOSPHATASE 79 U/L (45-117); CREATININE 0.74 mg/dL (0.7-1.3); TOTAL PROTEIN 5.9 g/dL (6.4-8.2)
--- NOTE | 2018-05-19 10:11 | NUR ---
namrata urine sent. patient continues to call out in pain. relayed this to md. no more pain medications ordered at this time.
--- NOTE | 2018-05-19 10:26 | NUR ---
report given to nurse sbar. patient continues to cry out in pain.
[2018-05-19 10:28] LABS: MICROSCOPIC INDICATED
[2018-05-19 10:36] LABS: CULTURE INDICATED? YES
[2018-05-19] MEDS ORDERED: LABETALOL 5 MG/ML SYRINGE IVPush PRN (11:00)
[2018-05-19] MEDS ORDERED: ENALAPRILAT 1.25 MG/ML, 2ML IVPush PRN (11:00)
[2018-05-19] MEDS ORDERED: LIDODERM 5% PATCH TD PRN (11:00)
[2018-05-19] MEDS ORDERED: ACETAMINOPHEN 325 MG TABLET PO PRN (11:00)
[2018-05-19] MEDS ORDERED: ONDANSETRON 2MG/ML, 2ML IVPush PRN (11:00)
[2018-05-19] MEDS ORDERED: DOCUSATE 100 MG CAPSULE PO PRN (11:00)
[2018-05-19] MEDS ORDERED: POLYETHYLENE GLYCOL 17 GM PACKET PO PRN ×2 (11:00)
[2018-05-19] MEDS ORDERED: ONDANSETRON ODT 4 MG PO PRN (11:00)
[2018-05-19] MEDS ORDERED: SENNA/DOCUSATE TABLET PO PRN (11:00)
[2018-05-19] MEDS ORDERED: BISACODYL 10 MG SUPP PR PRN (11:00)
[2018-05-19 11:41] VITALS: BP 137/97
[2018-05-19] MEDS: KETOROLAC 30 MG/1 ML IV PRN ×2 (12:11→17:51)
[2018-05-19] MEDS: METHOCARBAMOL 500 MG TABLET PO PRN (12:11)
[2018-05-19] MEDS: ENOXAPARIN 40 MG/0.4 ML SQ SCH (12:12)
[2018-05-19] MEDS ORDERED: OxyconTIN ER 20 MG TAB.ER ONE ×2 (12:17→19:59)
[2018-05-19] MEDS: NS + 20MEQ KCL 1,000 ML IV SCH ×2 (12:24→22:41)
[2018-05-19] MEDS: OxyconTIN ER 40 MG TAB.ER PO PRN ×2 (12:24→20:01)
[2018-05-19 13:09] LABS: HCT (SEDRATE) 51.9 % (39.2-51.8)
[2018-05-19] MEDS: OXYcodone IR 30 MG TABLET PO PRN ×3 (13:50→22:13)
[2018-05-19 14:45] VITALS: BP 116/67
[2018-05-19 15:09] LABS: CULTURE INDICATED? YES; MICROSCOPIC INDICATED
[2018-05-19] MEDS: CARISOPRODOL 350 MG TABLET PO SCH ×2 (16:28→22:13)
[2018-05-19] MEDS: BUSPIRONE 5 MG TABLET PO SCH (19:56)
[2018-05-19] MEDS: FENOFIBRATE 145 MG TABLET PO SCH (19:56)
[2018-05-19] MEDS: CALCIUM CARBONATE 500 MG TAB.CHEW PO SCH (19:56)
[2018-05-19] MEDS: PREGABALIN 75 MG CAPSULE PO SCH (19:56)
[2018-05-19] MEDS: MONTELUKAST 10 MG TABLET PO SCH (19:56)
[2018-05-19] MEDS: ALLOPURINOL 100 MG TABLET PO SCH (19:56)
[2018-05-19] MEDS: FAMOTIDINE 20 MG TABLET PO SCH (19:56)
[2018-05-19] MEDS: GABAPENTIN 250 MG/5 ML ORAL SOL PO SCH (20:06)
[2018-05-19 21:00] VITALS: BP 112/73
[2018-05-19] MEDS: METOPROLOL TARTRATE 50 MG TABLET PO SCH (22:12)
[2018-05-20] MEDS: OXYcodone IR 30 MG TABLET PO PRN ×5 (01:58→22:52)
[2018-05-20 02:15] VITALS: BP 116/75
[2018-05-20 05:20] LABS: BASOPHILS # (AUTO) 0.02 x10^3/uL (0-0.1); BASOPHILS % (AUTO) 0 % (0-1); EOSINOPHILS # (AUTO) 0.23 x10^3/uL (0-0.4); EOSINOPHILS % (AUTO) 4 % (1-7); LYMPHOCYTES # (AUTO) 0.64 x10^3/uL (1-3.4); LYMPHOCYTES % (AUTO) 10 % (22-44); MD NO; MEAN CORPUSCULAR HEMOGLOBIN 31.6 pg (27.5-34.5); MEAN CORPUSCULAR HGB CONC 34.7 g/dL (33.2-36.2); MEAN CORPUSCULAR VOLUME 91.1 fL (81-97); MONOCYTES # (AUTO) 0.92 x10^3/uL (0.2-0.8); MONOCYTES % (AUTO) 14 % (2-9); NEUTROPHILS # (AUTO) 4.75 x10^3/uL (1.8-6.8); NEUTROPHILS % (AUTO) 72 % (42-75); PLATELET COUNT 238 x10^3/uL (130-400); RED BLOOD COUNT 5.07 x10^6/uL (4.38-5.82); RED CELL DISTRIBUTION WIDTH 13.1 % (9.4-14.8)
[2018-05-20 05:27] LABS: ANION GAP 6 mmol/L (5-15); CALCIUM 7.7 mg/dL (8.5-10.1); CHLORIDE 112 mmol/L (98-107)
[2018-05-20 05:28] LABS: CREATININE 0.96 mg/dL (0.7-1.3)
[2018-05-20] MEDS ORDERED: OxyconTIN ER 20 MG TAB.ER ONE ×2 (07:48→21:04)
[2018-05-20] MEDS: OxyconTIN ER 40 MG TAB.ER PO PRN ×2 (07:55→21:05)
[2018-05-20] MEDS: CARISOPRODOL 350 MG TABLET PO SCH ×3 (07:57→19:52)
[2018-05-20] MEDS: OXYBUTYNIN CHLORIDE 5 MG TABLET PO SCH (07:57)
[2018-05-20] MEDS: PREGABALIN 75 MG CAPSULE PO SCH ×2 (07:57→19:52)
[2018-05-20] MEDS: FERROUS SULFATE 325 MG TABLET PO SCH (07:57)
[2018-05-20] MEDS: ALLOPURINOL 100 MG TABLET PO SCH ×2 (07:58→19:53)
[2018-05-20] MEDS: FAMOTIDINE 20 MG TABLET PO SCH ×2 (07:58→19:53)
[2018-05-20] MEDS: BUSPIRONE 5 MG TABLET PO SCH ×2 (07:58→19:53)
[2018-05-20] MEDS: CHOLECALCIFEROL 1,000 UNIT TABLET PO SCH (07:58)
[2018-05-20] MEDS: ASCORBIC ACID 500 MG TABLET PO SCH (07:59)
[2018-05-20] MEDS: CALCIUM CARBONATE 500 MG TAB.CHEW PO SCH ×2 (07:59→19:53)
[2018-05-20] MEDS: METOPROLOL TARTRATE 50 MG TABLET PO SCH ×2 (07:59→19:53)
[2018-05-20] MEDS: GABAPENTIN 250 MG/5 ML ORAL SOL PO SCH ×2 (08:01→19:54)
[2018-05-20 08:23] VITALS: BP 156/91
[2018-05-20] MEDS: NS + 20MEQ KCL 1,000 ML IV SCH (08:26)
[2018-05-20] MEDS ORDERED: CEFTRIAXONE PMX 1GM/50ML 50 ML IV SCH (09:30)
[2018-05-20] MEDS: METHOCARBAMOL 500 MG TABLET PO PRN ×2 (12:51→22:52)
[2018-05-20] MEDS: ENOXAPARIN 40 MG/0.4 ML SQ SCH (12:51)
[2018-05-20 12:52] VITALS: BP 151/92
[2018-05-20] MEDS ORDERED: FENTANYL PF 250 MCG/5ML ONE (14:29)
[2018-05-20] MEDS ORDERED: MIDAZOLAM 1 MG/ML, 2ML ONE (14:29)
[2018-05-20] MEDS ORDERED: PROPOFOL 10 MG/ML, 20ML ONE (14:40)
[2018-05-20] MEDS ORDERED: DEXAMETHASONE 4 MG/ML, 1ML ONE (14:40)
[2018-05-20] MEDS ORDERED: ONDANSETRON 2MG/ML, 2ML ONE (14:40)
[2018-05-20] MEDS ORDERED: DIPHENHYDRAMINE 50 MG/ML, 1ML IVPush PRN (16:30)
[2018-05-20] MEDS ORDERED: PROMETHAZINE 12.5 MG SUPP PR PRN (16:30)
[2018-05-20] MEDS ORDERED: HYDROmorphone 2 MG/ML, 1ML IVPush PRN (16:30)
[2018-05-20] MEDS ORDERED: MIDAZOLAM 1 MG/ML, 2ML IV PRN (16:30)
[2018-05-20] MEDS ORDERED: DIAZEPAM 5 MG/ML, 2ML IVPush PRN (16:30)
[2018-05-20] MEDS ORDERED: FENTANYL PF 100 MCG/2ML IV PRN (16:30)
[2018-05-20] MEDS ORDERED: EPHEDRINE 50 MG/ML, 1ML IM PRN (16:30)
[2018-05-20] MEDS ORDERED: ONDANSETRON 2MG/ML, 2ML IV PRN (16:30)
[2018-05-20] MEDS ORDERED: OXYcodone 5 MG/5 ML ORAL.SOL UDC PO PRN (16:30)
[2018-05-20] MEDS ORDERED: PROMETHAZINE 25 MG SUPP PR PRN (16:30)
[2018-05-20] MEDS ORDERED: GADOBUTROL 10 MMOL/10 ML PFS ONE (17:14)
[2018-05-20 19:06] VITALS: BP 153/90
[2018-05-20] MEDS: MONTELUKAST 10 MG TABLET PO SCH (19:52)
[2018-05-20] MEDS: FENOFIBRATE 145 MG TABLET PO SCH (19:52)
[2018-05-21] MEDS: NS + 20MEQ KCL 1,000 ML IV SCH (02:02)
[2018-05-21 02:06] VITALS: BP 160/96
[2018-05-21] MEDS: OXYcodone IR 30 MG TABLET PO PRN ×6 (02:45→23:59)
[2018-05-21 06:45] VITALS: BP 164/91
[2018-05-21] MEDS: METOPROLOL TARTRATE 50 MG TABLET PO SCH ×2 (09:00→20:35)
[2018-05-21] MEDS: OXYBUTYNIN CHLORIDE 5 MG TABLET PO SCH (09:00)
[2018-05-21] MEDS ORDERED: OxyconTIN ER 20 MG TAB.ER ONE ×2 (09:39→17:44)
[2018-05-21] MEDS: OxyconTIN ER 40 MG TAB.ER PO PRN ×2 (09:45→17:47)
[2018-05-21] MEDS: CALCIUM CARBONATE 500 MG TAB.CHEW PO SCH ×2 (10:45→20:36)
[2018-05-21] MEDS: BUSPIRONE 5 MG TABLET PO SCH (10:45)
[2018-05-21] MEDS: PREGABALIN 75 MG CAPSULE PO SCH ×2 (10:45→20:35)
[2018-05-21] MEDS: ASCORBIC ACID 500 MG TABLET PO SCH (10:45)
[2018-05-21] MEDS: DOXYCYCLINE 100MG TABLET PO SCH ×2 (10:45→20:35)
[2018-05-21] MEDS: CHOLECALCIFEROL 1,000 UNIT TABLET PO SCH (10:45)
[2018-05-21] MEDS: GABAPENTIN 250 MG/5 ML ORAL SOL PO SCH ×2 (10:45→20:16)
[2018-05-21] MEDS: FERROUS SULFATE 325 MG TABLET PO SCH (10:45)
[2018-05-21] MEDS: FAMOTIDINE 20 MG TABLET PO SCH ×2 (10:45→20:35)
[2018-05-21] MEDS: CARISOPRODOL 350 MG TABLET PO SCH ×3 (10:45→20:35)
[2018-05-21] MEDS: ALLOPURINOL 100 MG TABLET PO SCH ×2 (10:45→20:36)
[2018-05-21] MEDS: ENOXAPARIN 40 MG/0.4 ML SQ SCH (11:45)
[2018-05-21 13:55] VITALS: BP 166/94
[2018-05-21] MEDS ORDERED: OXYcodone IR 5MG TABLET ONE (14:57)
[2018-05-21 18:30] VITALS: BP 131/77
[2018-05-21] MEDS: MONTELUKAST 10 MG TABLET PO SCH (20:35)
[2018-05-21] MEDS: FENOFIBRATE 145 MG TABLET PO SCH (20:35)
[2018-05-21] MEDS: LINEZOLID 600 MG TABLET PO SCH (20:36)
[2018-05-22 00:15] VITALS: BP 151/71
[2018-05-22] MEDS ORDERED: OxyconTIN ER 20 MG TAB.ER ONE ×2 (01:02→09:08)
[2018-05-22] MEDS: OxyconTIN ER 40 MG TAB.ER PO PRN ×2 (01:15→09:09)
[2018-05-22] MEDS: OXYcodone IR 30 MG TABLET PO PRN ×3 (03:53→12:39)
[2018-05-22 07:40] VITALS: BP 165/81
[2018-05-22] MEDS: OXYBUTYNIN CHLORIDE 5 MG TABLET PO SCH (08:35)
[2018-05-22] MEDS: CALCIUM CARBONATE 500 MG TAB.CHEW PO SCH (08:37)
[2018-05-22] MEDS: PREGABALIN 75 MG CAPSULE PO SCH (08:37)
[2018-05-22] MEDS: CHOLECALCIFEROL 1,000 UNIT TABLET PO SCH (08:37)
[2018-05-22] MEDS: ASCORBIC ACID 500 MG TABLET PO SCH (08:37)
[2018-05-22] MEDS: ALLOPURINOL 100 MG TABLET PO SCH (08:37)
[2018-05-22] MEDS: METOPROLOL TARTRATE 50 MG TABLET PO SCH (08:38)
[2018-05-22] MEDS: CARISOPRODOL 350 MG TABLET PO SCH (08:38)
[2018-05-22] MEDS: FERROUS SULFATE 325 MG TABLET PO SCH (08:38)
[2018-05-22] MEDS: GABAPENTIN 250 MG/5 ML ORAL SOL PO SCH (08:38)
[2018-05-22] MEDS: DOXYCYCLINE 100MG TABLET PO SCH (08:38)
[2018-05-22] MEDS: FAMOTIDINE 20 MG TABLET PO SCH (08:38)
[2018-05-22] MEDS: LINEZOLID 600 MG TABLET PO SCH (08:41)
[2018-05-22] MEDS ORDERED: OXYC30TA PO (09:05)
[2018-05-22] MEDS ORDERED: LINE600T33 PO (09:05)
[2018-05-22] MEDS ORDERED: DOXY100T PO (09:05)
[2018-05-22] MEDS: ENOXAPARIN 40 MG/0.4 ML SQ SCH (11:47)
[2018-05-22 12:42] VITALS: BP 169/111
[2018-05-24] MEDS ORDERED: INDOMETHACIN 50 MG CAPSULE PO SCH (09:00)
== END 2018-05-22 14:00 | disposition home or self-care (01) ==
LOC: ED 08:52 → INTOOBSV 09:21 → EDIP 09:21 → 3NW 11:12 → DCLOUNGE 05-22 13:43
PROVIDERS: ADMIT Internal Medicine; ATTEND Internal Medicine
DX: M54.9 Dorsalgia, unspecified (principal); N31.2 Flaccid neuropathic bladder, not elsewhere classified; N39.0 Urinary tract infection, site not specified; E66.9 Obesity, unspecified; E78.5 Hyperlipidemia, unspecified; E86.0 Dehydration; F11.20 Opioid dependence, uncomplicated; G03.9 Meningitis, unspecified; G35 Multiple sclerosis; G47.00 Insomnia, unspecified; I10 Essential (primary) hypertension; K21.9 Gastro-esophageal reflux disease without esophagitis; M10.9 Gout, unspecified; M48.061 Spinal stenosis, lumbar region without neurogenic claudication; W19.XXXA Unspecified fall, initial encounter; Y92.009 Unspecified place in unspecified non-institutional (private) residence as the place of occurrence of the external cause; G89.29 Other chronic pain
CPT/HCPCS: 36415; 70553; 72156; 72157; 72158; 80048; 80053; 81001; 83690; 84145; 85025; 85610; 85651; 86140; 87077; 87086; 87186; 96365; 96372; 96375; 96376; 97162; 97166; 99284; A9585; G0378; J0696; J1100; J1650; J1885; J2250; J2405; J2704; J3010; J3480

== ENCOUNTER 2018-06-13 09:03 | Outpatient (CLI) | payer MEDICAID ==
[~2018-06-13 09:03] MED LIST changes: +DOXY100T PO; +LINE600T33 PO; +OXYC30TA PO; +SENN-177 PO; -SENN1TAB8 PO
== END 2018-06-13 23:59 | disposition home or self-care (01) ==
LOC: WOUND 09:03
PROVIDERS: ATTEND Family Medicine
DX: T81.31XA Disruption of external operation (surgical) wound, not elsewhere classified, initial encounter (principal); G35 Multiple sclerosis; G89.29 Other chronic pain; M54.9 Dorsalgia, unspecified; I10 Essential (primary) hypertension; I87.2 Venous insufficiency (chronic) (peripheral); E78.5 Hyperlipidemia, unspecified; M10.9 Gout, unspecified; M46.26 Osteomyelitis of vertebra, lumbar region; F41.9 Anxiety disorder, unspecified; F11.20 Opioid dependence, uncomplicated; K21.9 Gastro-esophageal reflux disease without esophagitis; E66.9 Obesity, unspecified; Z68.28 Body mass index [BMI] 28.0-28.9, adult; Z88.8 Allergy status to other drugs, medicaments and biological substances; Z88.6 Allergy status to analgesic agent; Y92.89 Other specified places as the place of occurrence of the external cause; Y83.8 Other surgical procedures as the cause of abnormal reaction of the patient, or of later complication, without mention of misadventure at the time of the procedure
CPT/HCPCS: 99214

== ENCOUNTER → 2018-06-20 | Outpatient (CLI) | payer MEDICAID | END | disposition home or self-care (01) | LOC: WOUND 10:30 | PROVIDERS: ATTEND Family Medicine | DX: T81.31XD Disruption of external operation (surgical) wound, not elsewhere classified, subsequent encounter (principal); G35 Multiple sclerosis; M10.9 Gout, unspecified; G89.29 Other chronic pain; M54.9 Dorsalgia, unspecified; E78.5 Hyperlipidemia, unspecified; I10 Essential (primary) hypertension; I87.2 Venous insufficiency (chronic) (peripheral); F41.9 Anxiety disorder, unspecified; M46.26 Osteomyelitis of vertebra, lumbar region; M46.22 Osteomyelitis of vertebra, cervical region; K21.9 Gastro-esophageal reflux disease without esophagitis; F11.20 Opioid dependence, uncomplicated; E66.9 Obesity, unspecified; Z68.28 Body mass index [BMI] 28.0-28.9, adult; Z88.6 Allergy status to analgesic agent; Z88.8 Allergy status to other drugs, medicaments and biological substances; Y83.8 Other surgical procedures as the cause of abnormal reaction of the patient, or of later complication, without mention of misadventure at the time of the procedure | CPT/HCPCS: 99214 ==

== ENCOUNTER → 2018-06-27 | Outpatient (CLI) | payer MEDICAID | END | disposition home or self-care (01) | LOC: WOUND 08:10 | PROVIDERS: ATTEND Family Medicine | DX: T81.31XD Disruption of external operation (surgical) wound, not elsewhere classified, subsequent encounter (principal); G35 Multiple sclerosis; M10.9 Gout, unspecified; G89.29 Other chronic pain; M54.9 Dorsalgia, unspecified; E78.5 Hyperlipidemia, unspecified; I10 Essential (primary) hypertension; I87.2 Venous insufficiency (chronic) (peripheral); F41.9 Anxiety disorder, unspecified; M46.26 Osteomyelitis of vertebra, lumbar region; M46.22 Osteomyelitis of vertebra, cervical region; K21.9 Gastro-esophageal reflux disease without esophagitis; F11.20 Opioid dependence, uncomplicated; E66.9 Obesity, unspecified; Z68.28 Body mass index [BMI] 28.0-28.9, adult; Z88.6 Allergy status to analgesic agent; Z88.8 Allergy status to other drugs, medicaments and biological substances; Y83.8 Other surgical procedures as the cause of abnormal reaction of the patient, or of later complication, without mention of misadventure at the time of the procedure | CPT/HCPCS: 99214 ==

== ENCOUNTER → 2018-07-04 | Outpatient (CLI) | payer MEDICAID | END | disposition home or self-care (01) | LOC: WOUND 08:12 | PROVIDERS: ATTEND Family Medicine | DX: T81.31XD Disruption of external operation (surgical) wound, not elsewhere classified, subsequent encounter (principal); G35 Multiple sclerosis; M10.9 Gout, unspecified; G89.29 Other chronic pain; M54.9 Dorsalgia, unspecified; E78.5 Hyperlipidemia, unspecified; I10 Essential (primary) hypertension; I87.2 Venous insufficiency (chronic) (peripheral); F41.9 Anxiety disorder, unspecified; M46.26 Osteomyelitis of vertebra, lumbar region; M46.22 Osteomyelitis of vertebra, cervical region; K21.9 Gastro-esophageal reflux disease without esophagitis; F11.20 Opioid dependence, uncomplicated; E66.9 Obesity, unspecified; Z68.28 Body mass index [BMI] 28.0-28.9, adult; Z88.6 Allergy status to analgesic agent; Z88.8 Allergy status to other drugs, medicaments and biological substances; Y83.8 Other surgical procedures as the cause of abnormal reaction of the patient, or of later complication, without mention of misadventure at the time of the procedure | CPT/HCPCS: 99213 ==

== ENCOUNTER 2018-07-22 06:44 | Inpatient (IN) | payer MEDICAID ==
[~2018-07-22] VITALS: Ht 190.5 cm; Wt 114.8 kg
[~2018-07-22 06:44] MED LIST changes: +ACID1TAB7 PO; +CETI10TA79 PO; +HYDR-3341 PO; +ISOS10TA2 PO; +TRIA10.8 NAS
[2018-07-22] MEDS ORDERED: SODIUM CHLORIDE FLUSH 10ML SYR IVF ONE (07:00)
--- NOTE | 2018-07-22 07:01 | NUR ---
BIB [facility] FOR CHEST PAIN THAT STARTED LAST NIGHT. PT GIVEN 4 81MG ASPIRIN AND 100MCG FENTANYL ENROUTE. PT STATES "HE WAS HERE 2 DAYS AGO AND STARTED ON NEW HEART MEDICATION. THE CHEST PAIN STARTED AFTER THE NEW HEART MEDICATION." PT DOES NOT KNOW THE NAME OF THE MEDICATION WHEN ASKED.
--- NOTE | 2018-07-22 07:02 | NUR ---
Recieved bedside report from DAVON Beverly. All questions answered. Assuming care of pt. Pt resting on gurney connected to barrel driller, NIBP, and continous pulse ox. Bed rails up for safety measures. Pt c/o left sided cp with out radiation to arm, neck, jaw, or back. Pt has open wound on lower back with dressing placed on 07/19/18. Plan of care is to replace dressing on pt's lower back. Pt has clean, dry, and intact dressing on right lower extremity. Pt has call light within reach and warm blanket provided for comfort measures.
[2018-07-22] MEDS ORDERED: NITROGLYCERIN SINGLE TAB 0.4 MG SL ONE (07:06)
[2018-07-22] MEDS: NITROGLYCERIN SINGLE TAB 0.4 MG SL PRN ×3 (07:14→07:31)
[2018-07-22 07:30] LABS: BASOPHILS % (AUTO) 0 % (0-1); EOSINOPHILS # (AUTO) 0.21 x10^3/uL (0-0.4); EOSINOPHILS % (AUTO) 3 % (1-7); LYMPHOCYTES # (AUTO) 0.49 x10^3/uL (1-3.4); LYMPHOCYTES % (AUTO) 7 % (22-44); MD NO; MEAN CORPUSCULAR HEMOGLOBIN 30.1 pg (27.5-34.5); MEAN CORPUSCULAR HGB CONC 33.5 g/dL (33.2-36.2); MEAN CORPUSCULAR VOLUME 89.8 fL (81-97); MEAN PLATELET VOLUME 7.1 fL (7.4-10.4); MONOCYTES # (AUTO) 0.93 x10^3/uL (0.2-0.8); MONOCYTES % (AUTO) 13 % (2-9); NEUTROPHILS # (AUTO) 5.64 x10^3/uL (1.8-6.8); NEUTROPHILS % (AUTO) 78 % (42-75); PLATELET COUNT 339 x10^3/uL (130-400); RED CELL DISTRIBUTION WIDTH 13.8 % (9.4-14.8)
--- NOTE | 2018-07-22 07:32 | NUR ---
Provided pt medication per EMAR. Pt had increase in lower back pain status post moving to laying on back and having x-ray board behind back. Pt requesting pain medication for lower back pain from moving. ED MD aware.
[2018-07-22 07:39] LABS: ALBUMIN 2.9 g/dL (3.4-5.0); ANION GAP 7 mmol/L (5-15); CALCIUM 8.2 mg/dL (8.5-10.1); CHLORIDE 108 mmol/L (98-107)
[2018-07-22] MEDS ORDERED: HYDROmorphone 2 MG/ML, 1ML ONE (07:40)
[2018-07-22] MEDS ORDERED: ONDANSETRON 2MG/ML, 2ML ONE (07:40)
[2018-07-22 07:44] LABS: ALANINE AMINOTRANSFERASE 45 U/L (12-78); ALKALINE PHOSPHATASE 66 U/L (45-117); BILIRUBIN,TOTAL 0.7 mg/dL (0.2-1.0); CREATININE 0.72 mg/dL (0.7-1.3); TOTAL PROTEIN 5.7 g/dL (6.4-8.2); TROPONIN I < 0.015 ng/mL (0.000-0.045)
--- NOTE | 2018-07-22 07:49 | NUR ---
LATE NOTE ENTERY FOR 0745: Pt rates lower back pain 12/02. Providing medications per EMAR. Please see EMAR. Pt appreciative.
[2018-07-22] MEDS ORDERED: HYDROmorphone 2 MG/ML, 1ML IVPush PRN (08:00)
[2018-07-22] MEDS ORDERED: ONDANSETRON 2MG/ML, 2ML IVPush ONE (08:00)
[2018-07-22] MEDS ORDERED: SODIUM CHLORIDE FLUSH 10ML SYR IVF PRN (08:00)
--- NOTE | 2018-07-22 08:18 | NUR ---
Provided report to DAVON Ely. DAVON Ely aware ED RN unable to complete and review home meds with pt at this time. Answered all questions for DAVON Ely. Pt ready to transfer to floor from ED.
--- NOTE | 2018-07-22 08:42 | NUR ---
Pt transfered to floor from ED and left with all personal belongings.
[2018-07-22 08:45] VITALS: BP 123/71
[2018-07-22] MEDS ORDERED: ONDANSETRON ODT 4 MG PO PRN (09:00)
[2018-07-22] MEDS ORDERED: POLYETHYLENE GLYCOL 17 GM PACKET PO PRN (09:00)
[2018-07-22] MEDS ORDERED: SENNA/DOCUSATE TABLET PO PRN (09:00)
[2018-07-22] MEDS ORDERED: ONDANSETRON 2MG/ML, 2ML IVPush PRN (09:00)
[2018-07-22] MEDS: OXYBUTYNIN CHLORIDE 5 MG TABLET PO SCH (09:00)
[2018-07-22] MEDS: TEMPLATE NON-FORMULARY MED. (Dimethyl Fumarate (Tecfidera) 240 MG) PEG SCH ×2 (09:00→21:00)
[2018-07-22] MEDS ORDERED: GABAPENTIN 400 MG CAPSULE PO SCH (09:00)
[2018-07-22] MEDS ORDERED: MAALOX/HYOSCYAMINE/LIDOCAINE 45 ML BTL PO ONE (09:00)
[2018-07-22] MEDS ORDERED: ACETAMINOPHEN 325 MG TABLET PO PRN (09:00)
[2018-07-22] MEDS ORDERED: FERROUS SULFATE 325 MG TABLET PO SCH (09:00)
[2018-07-22] MEDS: OXYcodone IR 30 MG TABLET PO PRN ×4 (09:10→21:45)
[2018-07-22] MEDS ORDERED: LIDOCAINE GEL 2%, 5ML TP PRN (09:30)
[2018-07-22] MEDS ORDERED: ISOSORBIDE DINITRATE 20 MG TABLET ONE (10:20)
[2018-07-22] MEDS: HEPARIN 5,000 UNITS/ML, 1ML SQ SCH ×2 (10:23→17:39)
[2018-07-22] MEDS: CHOLECALCIFEROL 1,000 UNIT TABLET PO SCH (10:24)
[2018-07-22] MEDS: CETIRIZINE 10 MG TABLET PO SCH (10:24)
[2018-07-22] MEDS: FAMOTIDINE 20 MG TABLET PO SCH ×2 (10:24→21:45)
[2018-07-22] MEDS: ASCORBIC ACID 500 MG TABLET PO SCH (10:24)
[2018-07-22] MEDS: INDOMETHACIN 50 MG CAPSULE PO SCH ×3 (10:24→21:44)
[2018-07-22] MEDS: MULTIVITAMINS/MINERALS TABLET PO SCH (10:25)
[2018-07-22] MEDS: CARISOPRODOL 350 MG TABLET PO SCH ×3 (10:25→21:45)
[2018-07-22] MEDS: LACTOBACILLUS CHEW TABLET PO SCH ×3 (10:25→21:44)
[2018-07-22] MEDS: METOPROLOL TARTRATE 50 MG TABLET PO SCH ×2 (10:25→21:45)
[2018-07-22] MEDS: ALLOPURINOL 100 MG TABLET PO SCH ×2 (10:25→21:44)
[2018-07-22] MEDS: ISOSORBIDE DINITRATE 10 MG TABLET PO SCH ×3 (10:28→21:45)
[2018-07-22] MEDS ORDERED: OxyconTIN ER 20 MG TAB.ER ONE (10:33)
[2018-07-22] MEDS: OxyconTIN ER 40 MG TAB.ER PO SCH ×2 (10:34→17:39)
[2018-07-22 10:35] LABS: TROPONIN I < 0.015 ng/mL (0.000-0.045)
[2018-07-22] MEDS: TRIAMCINOLONE ACETONIDE NAS SCH ×2 (11:00→21:00)
[2018-07-22 13:25] VITALS: BP 130/81
[2018-07-22 15:01] LABS: TROPONIN I < 0.015 ng/mL (0.000-0.045)
[2018-07-22] MEDS ORDERED: OxyconTIN ER 10 MG TAB.ER ONE (17:36)
[2018-07-22 20:22] VITALS: BP 130/80
[2018-07-22] MEDS ORDERED: MONTELUKAST 10 MG TABLET PO SCH (21:00)
[2018-07-22] MEDS ORDERED: FENOFIBRATE 145 MG TABLET PO SCH (21:00)
[2018-07-22 21:42] VITALS: BP 112/70
[2018-07-23 02:03] VITALS: BP 117/65
[2018-07-23] MEDS: HEPARIN 5,000 UNITS/ML, 1ML SQ SCH ×2 (02:06→08:35)
[2018-07-23] MEDS: OxyconTIN ER 40 MG TAB.ER PO SCH ×2 (02:06→12:34)
[2018-07-23] MEDS: OXYcodone IR 30 MG TABLET PO PRN ×3 (02:07→13:58)
[2018-07-23] MEDS ORDERED: ASPIRIN 325 MG TABLET EC PO SCH (06:00)
[2018-07-23 06:16] LABS: BASOPHILS # (AUTO) 0.01 x10^3/uL (0-0.1); BASOPHILS % (AUTO) 0 % (0-1); EOSINOPHILS # (AUTO) 0.37 x10^3/uL (0-0.4); EOSINOPHILS % (AUTO) 8 % (1-7); LYMPHOCYTES # (AUTO) 1.06 x10^3/uL (1-3.4); LYMPHOCYTES % (AUTO) 23 % (22-44); MD NO; MEAN CORPUSCULAR HEMOGLOBIN 30.6 pg (27.5-34.5); MEAN CORPUSCULAR HGB CONC 33.5 g/dL (33.2-36.2); MEAN CORPUSCULAR VOLUME 91.3 fL (81-97); MEAN PLATELET VOLUME 7.2 fL (7.4-10.4); MONOCYTES # (AUTO) 0.68 x10^3/uL (0.2-0.8); MONOCYTES % (AUTO) 15 % (2-9); NEUTROPHILS # (AUTO) 2.45 x10^3/uL (1.8-6.8); NEUTROPHILS % (AUTO) 54 % (42-75); PLATELET COUNT 259 x10^3/uL (130-400); RED BLOOD COUNT 4.55 x10^6/uL (4.38-5.82); RED CELL DISTRIBUTION WIDTH 13.7 % (9.4-14.8)
[2018-07-23 06:20] LABS: CHLORIDE 108 mmol/L (98-107)
[2018-07-23 06:25] LABS: ANION GAP 6 mmol/L (5-15); CALCIUM 7.9 mg/dL (8.5-10.1)
[2018-07-23 07:20] VITALS: BP 137/81
[2018-07-23] MEDS ORDERED: HYDROmorphone 2 MG/ML, 1ML ONE (08:25)
[2018-07-23] MEDS ORDERED: HYDROmorphone 1 MG/ML, 1ML INJ IV ONE (08:30)
[2018-07-23] MEDS: CHOLECALCIFEROL 1,000 UNIT TABLET PO SCH (08:35)
[2018-07-23] MEDS: CARISOPRODOL 350 MG TABLET PO SCH (08:35)
[2018-07-23] MEDS: MULTIVITAMINS/MINERALS TABLET PO SCH (08:36)
[2018-07-23] MEDS: CETIRIZINE 10 MG TABLET PO SCH (08:36)
[2018-07-23] MEDS: ISOSORBIDE DINITRATE 10 MG TABLET PO SCH (08:36)
[2018-07-23] MEDS: INDOMETHACIN 50 MG CAPSULE PO SCH (08:36)
[2018-07-23] MEDS: FAMOTIDINE 20 MG TABLET PO SCH (08:36)
[2018-07-23] MEDS: ASCORBIC ACID 500 MG TABLET PO SCH (08:36)
[2018-07-23] MEDS: LACTOBACILLUS CHEW TABLET PO SCH (08:36)
[2018-07-23] MEDS: ALLOPURINOL 100 MG TABLET PO SCH (08:36)
[2018-07-23] MEDS: TRIAMCINOLONE ACETONIDE NAS SCH (08:37)
[2018-07-23] MEDS: OXYBUTYNIN CHLORIDE 5 MG TABLET PO SCH (08:37)
[2018-07-23] MEDS: METOPROLOL TARTRATE 50 MG TABLET PO SCH (08:37)
[2018-07-23] MEDS: TEMPLATE NON-FORMULARY MED. (Dimethyl Fumarate (Tecfidera) 240 MG) PEG SCH (08:37)
[2018-07-23] MEDS ORDERED: REGADENOSON 0.4 MG/5 ML SYRINGE ONE (08:42)
[2018-07-23 13:18] VITALS: BP 171/84
== END 2018-07-23 16:05 | disposition home or self-care (01) | DRG 311 ==
LOC: ED 07:55 → 5SO 07:56 → ED 08:05 → DCLOUNGE 07-23 15:51
PROVIDERS: ADMIT Internal Medicine; ATTEND Internal Medicine
DX: I20.0 Unstable angina (principal); E61.1 Iron deficiency; E66.9 Obesity, unspecified; G35 Multiple sclerosis; G47.00 Insomnia, unspecified; G89.4 Chronic pain syndrome; I10 Essential (primary) hypertension; K21.9 Gastro-esophageal reflux disease without esophagitis; M10.9 Gout, unspecified; N31.9 Neuromuscular dysfunction of bladder, unspecified; Z96.653 Presence of artificial knee joint, bilateral; M54.5 Low back pain; R61 Generalized hyperhidrosis; Z87.440 Personal history of urinary (tract) infections; Z88.6 Allergy status to analgesic agent; Z88.5 Allergy status to narcotic agent; Z88.8 Allergy status to other drugs, medicaments and biological substances
CPT/HCPCS: 36415; 71045; 78452; 80048; 80053; 83605; 83690; 83735; 83880; 84484; 85025; 93005; 93017; 96374; 96375; 99285; G0378; J1170; J1644; J2405; J2785; A9502; C9898

== ENCOUNTER 2018-08-14 05:36 | Inpatient (IN) | payer MEDICAID ==
[~2018-08-14] VITALS: Ht 190.5 cm; Wt 95.3 kg
--- NOTE | 2018-08-14 05:46 | NUR ---
BIB [facility] FOR C/O LEFT PECTORAL CP 01/01 DESCRIBED SHARP IN NATURE SINCE 1899 LAST NIGHT. PAIN IS REPRODUCABLE; NON-RADIATING. REPORTS PRODUCTIVE COUGH LAST NIGHT. PT. TOOK 324 ASA PRIOR TO [facility] ARRIVAL. IV AND 100MG FENTANYL EN ROUTE. EKG DONE ON ARRIVAL. LONDON STAHL HAS BEEN IN TO EVAL PT. AND DISCUSS POC. CONTINUOUS PULSE OX, B/P, AND HEART MONITORS IN PLACE. PT. PLACED IN GOWN. PT. DOES HAVE A REPORTED WOUND TO LOWER BACK; DRESSING CDI. PT. DOES STRAIGHT CATH UA'S ON SELF FOR MS AND ALSO REPORTS HE BELIEVES HE IS GETTING ANOTHER UTI. HAS BEEN ON DOXYCYCLINE X 3 WEEKS FOR BACK WOUND.
[2018-08-14] MEDS ORDERED: HYDROmorphone 2 MG/ML, 1ML ONE ×3 (05:53→09:03)
[2018-08-14] MEDS ORDERED: ONDANSETRON 2MG/ML, 2ML ONE (05:59)
[2018-08-14] MEDS ORDERED: SODIUM CHLORIDE FLUSH 10ML SYR IVF ONE (06:00)
[2018-08-14] MEDS ORDERED: ONDANSETRON 2MG/ML, 2ML IVPush ONE (06:00)
[2018-08-14] MEDS: HYDROmorphone 2 MG/ML, 1ML IVPush PRN ×2 (06:05→07:49)
--- NOTE | 2018-08-14 06:20 | NUR ---
WAITING FOR LAB TO COMPLETE BLOOD DRAW TO PERFORM STRAIGHT CATH UA.
--- NOTE | 2018-08-14 06:46 | NUR ---
LAB DRAW COMPLETED. STRAIGHT CATH UA COLLECTED PER ORDER AND WALKED TO LAB. PT. TOLERATED WELL.
[2018-08-14 06:47] LABS: BASOPHILS # (AUTO) 0.01 x10^3/uL (0-0.1); BASOPHILS % (AUTO) 0 % (0-1); EOSINOPHILS # (AUTO) 0.01 x10^3/uL (0-0.4); EOSINOPHILS % (AUTO) 0 % (1-7); LYMPHOCYTES # (AUTO) 0.43 x10^3/uL (1-3.4); LYMPHOCYTES % (AUTO) 9 % (22-44); MD NO; MEAN CORPUSCULAR HEMOGLOBIN 31.1 pg (27.5-34.5); MEAN CORPUSCULAR HGB CONC 34.1 g/dL (33.2-36.2); MEAN CORPUSCULAR VOLUME 91.3 fL (81-97); MEAN PLATELET VOLUME 6.8 fL (7.4-10.4); MONOCYTES # (AUTO) 0.59 x10^3/uL (0.2-0.8); MONOCYTES % (AUTO) 12 % (2-9); NEUTROPHILS # (AUTO) 3.73 x10^3/uL (1.8-6.8); NEUTROPHILS % (AUTO) 78 % (42-75); PLATELET COUNT 285 x10^3/uL (130-400); RED BLOOD COUNT 4.44 x10^6/uL (4.38-5.82); RED CELL DISTRIBUTION WIDTH 13.3 % (9.4-14.8)
[2018-08-14 07:00] LABS: ALBUMIN 3.3 g/dL (3.4-5.0); ANION GAP 9 mmol/L (5-15); CALCIUM 8.5 mg/dL (8.5-10.1); CHLORIDE 111 mmol/L (98-107)
--- NOTE | 2018-08-14 07:01 | NUR ---
Recieved bedside report from DAVON Valencia. All questions answered. Assuming care of pt.
[2018-08-14 07:03] LABS: ALANINE AMINOTRANSFERASE 28 U/L (12-78); ALKALINE PHOSPHATASE 67 U/L (45-117); BILIRUBIN,TOTAL 0.5 mg/dL (0.2-1.0); CREATININE 0.76 mg/dL (0.7-1.3); TOTAL PROTEIN 6.1 g/dL (6.4-8.2); TROPONIN I < 0.015 ng/mL (0.000-0.045)
[2018-08-14] MEDS ORDERED: NITROGLYCERIN SINGLE TAB 0.4 MG SL ONE (07:07)
[2018-08-14] MEDS: NITROGLYCERIN SINGLE TAB 0.4 MG SL PRN ×3 (07:15→07:26)
--- NOTE | 2018-08-14 07:24 | NUR ---
LATE NOTE FOR 0715: Provided medication per EMAR for pt's intermittent left upper chest pain 7/10 pain. NADN. Both bedrails in place. Call light within reach. Pt resting on right lateral to help with back pain related to open surgical wound.
[2018-08-14 07:30] LABS: CULTURE INDICATED? YES; MICROSCOPIC INDICATED
[2018-08-14 08:37] LABS: HCT (SEDRATE) 40.8 % (39.2-51.8)
--- NOTE | 2018-08-14 08:43 | NUR ---
Hourly rounding. New PIV established. Both bedrails up for safety measures. Pt remains connected to NIBP, continous pulse ox, and monitoring and evaluation advisor. Call light within reach. NADN. Pt requesting pain medication for 8/10 lower back pain.
--- NOTE | 2018-08-14 09:10 | NUR ---
Providing medication per EMAR, ED MD order, and pt request for 9/10 lower back pain. KENYATTAN.
--- NOTE | 2018-08-14 09:25 | NUR ---
Radiology contacted and notified that pt was medicated for pain and is ready for imaging.
[2018-08-14] MEDS ORDERED: POLYETHYLENE GLYCOL 17 GM PACKET PO PRN (09:30)
[2018-08-14] MEDS ORDERED: CARISOPRODOL 350 MG TABLET PO PRN (09:30)
[2018-08-14] MEDS ORDERED: FERROUS SULFATE 325 MG TABLET PO SCH (09:30)
[2018-08-14] MEDS ORDERED: GABAPENTIN 300 MG CAPSULE PO PRN (09:30)
[2018-08-14] MEDS ORDERED: HYDROmorphone 2 MG/ML, 1ML IVPush PRN (09:30)
[2018-08-14] MEDS ORDERED: hydrALAzine 20 MG/ML, 1ML IVPush PRN (09:30)
--- NOTE | 2018-08-14 09:50 | NUR ---
Provided report to DAVON Hebert. All questions answered. Pt ready to transfer to floor from ED.
[2018-08-14] MEDS: OXYcodone IR 30 MG TABLET PO PRN ×3 (10:35→21:24)
[2018-08-14] MEDS: ENOXAPARIN 40 MG/0.4 ML SQ SCH (10:55)
[2018-08-14 13:19] VITALS: BP 176/105
[2018-08-14] MEDS: OxyconTIN ER 40 MG TAB.ER PO SCH ×2 (13:25→21:03)
[2018-08-14] MEDS ORDERED: OxyconTIN ER 20 MG TAB.ER PO ONE (13:30)
[2018-08-14 14:01] VITALS: BP 151/82
[2018-08-14] MEDS ORDERED: SODIUM CHLORIDE NASAL SPRAY 45ML BOTTLE NAS PRN (16:30)
[2018-08-14] MEDS: INDOMETHACIN 50 MG CAPSULE PO SCH ×2 (17:04→20:58)
[2018-08-14] MEDS: LACTOBACILLUS CHEW TABLET PO SCH ×2 (17:04→20:58)
[2018-08-14] MEDS: ISOSORBIDE DINITRATE 10 MG TABLET PO SCH ×2 (17:04→20:59)
[2018-08-14 17:24] VITALS: BP 166/103
[2018-08-14] MEDS ORDERED: ACETAMINOPHEN 325 MG TABLET PO PRN (18:30)
[2018-08-14 19:25] VITALS: BP 131/69
[2018-08-14] MEDS ORDERED: OxyconTIN ER 10 MG TAB.ER ONE (20:45)
[2018-08-14] MEDS: FLUTICASONE NASAL SPRAY 16GM NAS SCH (20:56)
[2018-08-14] MEDS: CALCIUM CARBONATE 500 MG TAB.CHEW PO SCH (20:56)
[2018-08-14] MEDS: ALLOPURINOL 100 MG TABLET PO SCH (20:58)
[2018-08-14] MEDS ORDERED: MONTELUKAST 10 MG TABLET PO SCH (21:00)
[2018-08-14] MEDS ORDERED: FENOFIBRATE 145 MG TABLET PO SCH (21:00)
[2018-08-14] MEDS: METOPROLOL TARTRATE 50 MG TABLET PO SCH (21:02)
[2018-08-14] MEDS: FAMOTIDINE 20 MG TABLET PO SCH (21:02)
[2018-08-14] MEDS: CETIRIZINE 10 MG TABLET PO SCH (21:03)
[2018-08-15] MEDS: OXYcodone IR 30 MG TABLET PO PRN ×4 (00:33→13:30)
[2018-08-15 02:37] VITALS: BP 149/85
[2018-08-15 05:42] LABS: ALANINE AMINOTRANSFERASE 28 U/L (12-78); ALBUMIN 3.1 g/dL (3.4-5.0); ANION GAP 6 mmol/L (5-15); CALCIUM 8.3 mg/dL (8.5-10.1); CHLORIDE 110 mmol/L (98-107); CREATININE 0.92 mg/dL (0.7-1.3)
[2018-08-15 05:44] LABS: ALKALINE PHOSPHATASE 63 U/L (45-117); BILIRUBIN,TOTAL 0.5 mg/dL (0.2-1.0); TOTAL PROTEIN 6.1 g/dL (6.4-8.2)
[2018-08-15 06:21] LABS: BASOPHILS # (AUTO) 0.05 x10^3/uL (0-0.1); BASOPHILS % (AUTO) 1 % (0-1); EOSINOPHILS # (AUTO) 0.15 x10^3/uL (0-0.4); EOSINOPHILS % (AUTO) 3 % (1-7); LYMPHOCYTES # (AUTO) 0.97 x10^3/uL (1-3.4); LYMPHOCYTES % (AUTO) 21 % (22-44); MD NO; MEAN CORPUSCULAR HEMOGLOBIN 31.6 pg (27.5-34.5); MEAN CORPUSCULAR HGB CONC 33.8 g/dL (33.2-36.2); MEAN CORPUSCULAR VOLUME 93.6 fL (81-97); MEAN PLATELET VOLUME 6.8 fL (7.4-10.4); MONOCYTES # (AUTO) 0.76 x10^3/uL (0.2-0.8); MONOCYTES % (AUTO) 16 % (2-9); NEUTROPHILS # (AUTO) 2.75 x10^3/uL (1.8-6.8); NEUTROPHILS % (AUTO) 59 % (42-75); PLATELET COUNT 266 x10^3/uL (130-400); RED BLOOD COUNT 4.38 x10^6/uL (4.38-5.82); RED CELL DISTRIBUTION WIDTH 13.6 % (9.4-14.8)
[2018-08-15] MEDS ORDERED: CHOLECALCIFEROL 1,000 UNIT TABLET PO SCH (09:00)
[2018-08-15] MEDS: OxyconTIN ER 40 MG TAB.ER PO SCH (09:00)
[2018-08-15] MEDS ORDERED: ASCORBIC ACID 500 MG TABLET PO SCH (09:00)
[2018-08-15] MEDS ORDERED: OxyconTIN ER 10 MG TAB.ER ONE (09:12)
[2018-08-15 09:30] VITALS: BP 153/80
[2018-08-15] MEDS: CETIRIZINE 10 MG TABLET PO SCH (09:30)
[2018-08-15] MEDS: ENOXAPARIN 40 MG/0.4 ML SQ SCH (09:30)
[2018-08-15] MEDS: ALLOPURINOL 100 MG TABLET PO SCH (09:31)
[2018-08-15] MEDS: FAMOTIDINE 20 MG TABLET PO SCH (09:31)
[2018-08-15] MEDS: ISOSORBIDE DINITRATE 10 MG TABLET PO SCH (09:32)
[2018-08-15] MEDS: METOPROLOL TARTRATE 50 MG TABLET PO SCH (09:33)
[2018-08-15] MEDS: CALCIUM CARBONATE 500 MG TAB.CHEW PO SCH (09:33)
[2018-08-15] MEDS: INDOMETHACIN 50 MG CAPSULE PO SCH (09:34)
[2018-08-15] MEDS: FLUTICASONE NASAL SPRAY 16GM NAS SCH (09:34)
[2018-08-15] MEDS: LACTOBACILLUS CHEW TABLET PO SCH (09:34)
[2018-08-15 10:48] VITALS: BP 145/79
[2018-08-15] MEDS ORDERED: BENZOCAINE/MENTHOL CAN TP PRN (13:00)
[2018-08-15 13:52] VITALS: BP 166/82
== END 2018-08-15 15:10 | disposition home or self-care (01) | DRG 552 ==
LOC: ED 08:20 → EDIP 08:40 → 3NE 10:15 → DCLOUNGE 08-15 15:00
PROVIDERS: ADMIT Internal Medicine; ATTEND Internal Medicine
PROC: 0T9B70Z Drainage of Bladder with Drainage Device, Via Natural or Artificial Opening (ICD-10-PCS; principal; 2018-08-14)
DX: M51.36 Other intervertebral disc degeneration, lumbar region (principal); G35 Multiple sclerosis; G89.29 Other chronic pain; I10 Essential (primary) hypertension; J98.01 Acute bronchospasm; J06.9 Acute upper respiratory infection, unspecified; K21.9 Gastro-esophageal reflux disease without esophagitis; Z79.01 Long term (current) use of anticoagulants
CPT/HCPCS: 36415; 71045; 72110; 80053; 81001; 84484; 85025; 85651; 87086; 93005; 99285; G0378; J1170; J1650; J2405; J0360

== ENCOUNTER 2018-10-04 12:53 | Emergency (ER) | payer MEDICAID ==
[~2018-10-04] VITALS: Ht 190.5 cm; Wt 115.0 kg
--- NOTE | 2018-10-04 13:08 | NUR ---
PT AIXA MARTINEZ FROM HOME AFTER THIS AM ATTEMPTING TO USE WALKER THEN HAD SUDDEN POP IN BACK FOLLOWED BY SEVERE PAIN. PT CURRENTLY BEING TREATED FOR ACTIVE CASE OF SHINGLES. IV IN PLACE ON ARRIVAL, GIVEN 100 MCG OF FENTYNAL IN ROUTE. CONNECTED TO MONITORING, HTN, TACHY. PA TO BEDSIDE, ORDERS RECEIVED. CALL LIGHT WITHIN REACH. AWAITING TESTING AND RESULTS AT THIS TIME
[2018-10-04] MEDS ORDERED: DIAZEPAM 5 MG/ML, 2ML ONE (13:17)
[2018-10-04] MEDS ORDERED: KETOROLAC 30 MG/1 ML ONE (13:17)
[2018-10-04] MEDS ORDERED: KETOROLAC 30 MG/1 ML IVPush ONE (13:30)
[2018-10-04] MEDS ORDERED: DIAZEPAM 5 MG/ML, 2ML IVPush ONE (13:30)
--- NOTE | 2018-10-04 13:33 | NUR ---
PT MEDICATED FOR PAIN PER MAR. PT VERY SENSITIVE TO VALIUM, O2 APPLIED TO KEEP SATS ABOVE 95%. WILL CONTINUE TO MONITOR
--- NOTE | 2018-10-04 13:42 | NUR ---
TAKEN FOR RAD
[2018-10-04] MEDS ORDERED: HYDROmorphone 2 MG/ML, 1ML ONE (14:23)
[2018-10-04] MEDS ORDERED: HYDROmorphone 2 MG/ML, 1ML IVPush PRN (14:30)
--- NOTE | 2018-10-04 14:37 | NUR ---
PT MEDICATED FOR PAIN PER MAY. TAKEN TO RAD AGAIN
--- NOTE | 2018-10-04 14:59 | NUR ---
PT BACK IN ROOM AT THIS TIME. AWAITING TEST RESULTS
[2018-10-04 15:00] VITALS: BP 168/110
--- NOTE | 2018-10-04 15:04 | NUR ---
RESULTS BACK AT THIS TIME, CHART UP FOR RECHECK
--- NOTE | 2018-10-04 15:09 | NUR ---
PA TO BEDSIDE FOR RECHECK
== END 2018-10-04 15:30 | disposition home or self-care (01) ==
LOC: ED 13:20
DX: S29.012A Strain of muscle and tendon of back wall of thorax, initial encounter (principal); X58.XXXA Exposure to other specified factors, initial encounter; Y93.01 Activity, walking, marching and hiking; Y92.89 Other specified places as the place of occurrence of the external cause; Y99.8 Other external cause status
CPT/HCPCS: 72072; 96374; 96375; 99283; J1170; J1885; J3360

== ENCOUNTER 2019-01-11 08:21 | Inpatient (IN) | payer MEDICAID ==
[~2019-01-11] VITALS: Ht 190.5 cm; Wt 117.9 kg
[~2019-01-11 08:21] MED LIST changes: +ASCO-254 PO; -ASCO500T12 PO; +INDO50CA15 PO; -INDO50CA5 PO; +LINE600T15 PO; -LINE600T33 PO; +[UNRECOGNIZED DRUG - CODE] TP; -[UNRECOGNIZED DRUG - CODE] TP
--- NOTE | 2019-01-11 08:23 | NUR ---
PATIENT ARRIVES FROM HOME WITH EMS WITH EXACERBATION OF MS. PATIENT IS IN PAIN AND UNABLE TO MOVE, THIS MORNING WHEN HIS CAREGIVER CAME SHE CALLED EMS. HE HAS DECREASED MOBILITY AND PAIN 10/10. PATIENT ON MONITOR, RAILS UP. PATIENT HAD A UTI ONE WEEK AGO AND STATES IT'S RESOLVED. HE HAS A WOUND DRESSING TO BACK FROM A FUSION SURGERY THAT WAS YEARS AGO THAT WILL NOT HEAL.
[2019-01-11] MEDS ORDERED: OXYcodone IR 30 MG TABLET PO PRN (09:30)
--- NOTE | 2019-01-11 09:33 | NUR ---
CATH PATIENT DRAINED 700 BLADDER AND URINE SENT TO LAB
[2019-01-11 09:44] LABS: BASOPHILS # (AUTO) 0.03 x10^3/uL (0-0.1); BASOPHILS % (AUTO) 0 % (0-1); EOSINOPHILS # (AUTO) 0.01 x10^3/uL (0-0.4); EOSINOPHILS % (AUTO) 0 % (1-7); LYMPHOCYTES # (AUTO) 0.56 x10^3/uL (1-3.4); LYMPHOCYTES % (AUTO) 9 % (22-44); MD NO; MEAN CORPUSCULAR HEMOGLOBIN 31.1 pg (27.5-34.5); MEAN CORPUSCULAR HGB CONC 34.2 g/dL (33.2-36.2); MEAN CORPUSCULAR VOLUME 91.1 fL (81-97); MEAN PLATELET VOLUME 7.2 fL (7.4-10.4); MONOCYTES # (AUTO) 0.46 x10^3/uL (0.2-0.8); MONOCYTES % (AUTO) 8 % (2-9); NEUTROPHILS # (AUTO) 4.97 x10^3/uL (1.8-6.8); NEUTROPHILS % (AUTO) 83 % (42-75); PLATELET COUNT 344 x10^3/uL (130-400); RED BLOOD COUNT 4.73 x10^6/uL (4.38-5.82); RED CELL DISTRIBUTION WIDTH 12.8 % (9.4-14.8)
[2019-01-11 09:51] LABS: INTERNATIONAL NORMALIZED RATIO 1.09 (0.93-1.1); PROTHROMBIN TIME 11.4 Seconds (9.6-11.5)
[2019-01-11 09:54] LABS: ALANINE AMINOTRANSFERASE 23 U/L (12-78); ALBUMIN 3.5 g/dL (3.4-5.0); ANION GAP 9 mmol/L (5-15); CALCIUM 8.5 mg/dL (8.5-10.1); CHLORIDE 109 mmol/L (98-107)
[2019-01-11 09:56] LABS: ALKALINE PHOSPHATASE 75 U/L (45-117); BILIRUBIN,TOTAL 0.6 mg/dL (0.2-1.0); TOTAL PROTEIN 6.6 g/dL (6.4-8.2)
[2019-01-11 10:07] LABS: MICROSCOPIC NOT IND
--- NOTE | 2019-01-11 10:19 | NUR ---
patient frequently calls out in pain. helping patient turn about every 5 minutes, and adjust himself. He has multiple requests for pillows, blankets, and pain meds. have talked to MD. He is difficult to console.
[2019-01-11 10:30] LABS: CULTURE INDICATED? NO
[2019-01-11] MEDS ORDERED: HYDROmorphone 1 MG/ML, 1ML VIAL ONE (11:31)
--- NOTE | 2019-01-11 11:47 | NUR ---
report called sbar to DAVON Mcdowell.
[2019-01-11] MEDS ORDERED: hydrALAzine 20 MG/ML, 1ML IVPush PRN (12:00)
[2019-01-11] MEDS ORDERED: HYDROmorphone 1 MG/ML, 1ML INJ IV ONE (12:00)
[2019-01-11] MEDS ORDERED: HYDROmorphone 2 MG/ML, 1ML IV ONE (12:00)
[2019-01-11] MEDS: FERROUS SULFATE 325 MG TABLET PO SCH (12:00)
[2019-01-11 12:38] VITALS: BP 156/78
[2019-01-11] MEDS ORDERED: PROMETHAZINE 25 MG/ML, 1ML IM PRN (13:00)
[2019-01-11] MEDS ORDERED: ONDANSETRON 2MG/ML, 2ML IVPush PRN (13:00)
[2019-01-11] MEDS: HEPARIN 5,000 UNITS/ML, 1ML SQ SCH ×2 (13:00→20:51)
[2019-01-11] MEDS ORDERED: ACETAMINOPHEN 325 MG TABLET PO PRN (13:00)
[2019-01-11] MEDS ORDERED: LABETALOL 5 MG/ML SYR. (IV ONLY) IVPush PRN (13:00)
[2019-01-11 13:03] VITALS: BP 167/81
[2019-01-11] MEDS: HYDROmorphone 2 MG/ML, 1ML IVPush PRN (15:02)
[2019-01-11] MEDS: INDOMETHACIN 50 MG CAPSULE PO SCH ×2 (16:00→20:50)
[2019-01-11] MEDS: OxyconTIN ER 40 MG TAB.ER PO SCH ×2 (16:00→20:45)
[2019-01-11] MEDS ORDERED: OxyconTIN ER 15 MG TAB.ER ONE (16:04)
[2019-01-11] MEDS ORDERED: OxyconTIN ER 10 MG TAB.ER ONE ×2 (16:05→20:33)
[2019-01-11] MEDS: ISOSORBIDE DINITRATE 10 MG TABLET PO SCH ×2 (16:08→20:47)
[2019-01-11] MEDS ORDERED: POTASSIUM CHLORIDE 20 MEQ TAB.ER.PRT PO SCH (17:00)
[2019-01-11] MEDS: OXYcodone IR 30 MG TABLET PO PRN ×2 (17:23→21:24)
[2019-01-11 18:59] VITALS: BP 169/105
[2019-01-11] MEDS: FENOFIBRATE 145 MG TABLET PO SCH (20:46)
[2019-01-11] MEDS: ALLOPURINOL 100 MG TABLET PO SCH (20:46)
[2019-01-11] MEDS: FAMOTIDINE 20 MG TABLET PO SCH (20:46)
[2019-01-11] MEDS: MONTELUKAST 10 MG TABLET PO SCH (20:46)
[2019-01-11] MEDS ORDERED: CALCIUM CARBONATE 500 MG TAB.CHEW PO SCH (21:00)
[2019-01-11] MEDS: METOPROLOL TARTRATE 50 MG TABLET PO SCH (21:05)
[2019-01-12 01:24] VITALS: BP 178/107
[2019-01-12] MEDS: OXYcodone IR 30 MG TABLET PO PRN ×6 (01:25→22:20)
[2019-01-12] MEDS ORDERED: LORazepam 2 MG/ML, 1ML IVPush ONE (01:30)
[2019-01-12] MEDS ORDERED: LORazepam 2 MG/ML, 1ML ONE (01:35)
[2019-01-12 02:25] VITALS: BP 154/86
[2019-01-12] MEDS: HEPARIN 5,000 UNITS/ML, 1ML SQ SCH ×3 (05:34→21:16)
[2019-01-12 06:33] LABS: BASOPHILS % (AUTO) 0 % (0-1); EOSINOPHILS % (AUTO) 0 % (1-7); LYMPHOCYTES # (AUTO) 0.53 x10^3/uL (1-3.4); LYMPHOCYTES % (AUTO) 5 % (22-44); MD NO; MEAN CORPUSCULAR HEMOGLOBIN 30.9 pg (27.5-34.5); MEAN CORPUSCULAR HGB CONC 33.5 g/dL (33.2-36.2); MEAN CORPUSCULAR VOLUME 92.3 fL (81-97); MEAN PLATELET VOLUME 7.2 fL (7.4-10.4); MONOCYTES # (AUTO) 0.71 x10^3/uL (0.2-0.8); MONOCYTES % (AUTO) 7 % (2-9); NEUTROPHILS # (AUTO) 9.49 x10^3/uL (1.8-6.8); NEUTROPHILS % (AUTO) 89 % (42-75); PLATELET COUNT 367 x10^3/uL (130-400); RED BLOOD COUNT 4.59 x10^6/uL (4.38-5.82); RED CELL DISTRIBUTION WIDTH 12.7 % (9.4-14.8)
[2019-01-12 06:43] LABS: ALBUMIN 3.2 g/dL (3.4-5.0); ANION GAP 9 mmol/L (5-15); CALCIUM 8.6 mg/dL (8.5-10.1); CHLORIDE 111 mmol/L (98-107)
[2019-01-12 06:46] LABS: ALANINE AMINOTRANSFERASE 25 U/L (12-78); ALKALINE PHOSPHATASE 67 U/L (45-117); BILIRUBIN,TOTAL 0.4 mg/dL (0.2-1.0); CREATININE 0.94 mg/dL (0.7-1.3); TOTAL PROTEIN 6.1 g/dL (6.4-8.2)
[2019-01-12 08:00] VITALS: BP 140/80
[2019-01-12] MEDS ORDERED: OxyconTIN ER 15 MG TAB.ER ONE ×2 (08:32→16:06)
[2019-01-12] MEDS ORDERED: OxyconTIN ER 10 MG TAB.ER ONE ×3 (08:32→21:00)
[2019-01-12] MEDS: POTASSIUM CHLORIDE 20 MEQ TAB.ER.PRT PO SCH ×2 (08:42→09:00)
[2019-01-12] MEDS: INDOMETHACIN 50 MG CAPSULE PO SCH ×3 (08:43→21:11)
[2019-01-12] MEDS: ISOSORBIDE DINITRATE 10 MG TABLET PO SCH ×3 (08:43→21:13)
[2019-01-12] MEDS: METOPROLOL TARTRATE 50 MG TABLET PO SCH ×2 (08:43→21:12)
[2019-01-12] MEDS: LISINOPRIL 10 MG TABLET PO SCH ×2 (08:43→21:15)
[2019-01-12] MEDS: ALLOPURINOL 100 MG TABLET PO SCH ×2 (08:43→21:14)
[2019-01-12] MEDS: AMLODIPINE 5 MG TABLET PO SCH ×2 (08:44→21:12)
[2019-01-12] MEDS: FAMOTIDINE 20 MG TABLET PO SCH ×2 (08:44→21:08)
[2019-01-12] MEDS: OxyconTIN ER 40 MG TAB.ER PO SCH ×3 (08:44→21:05)
[2019-01-12] MEDS: CETIRIZINE 10 MG TABLET PO SCH (08:44)
[2019-01-12] MEDS ORDERED: methylPREDNISolone SOD SUCC 125 MG/2 ML IVPush SCH (09:00)
[2019-01-12] MEDS ORDERED: LORazepam 0.5MG TABLET ONE (09:45)
[2019-01-12] MEDS ORDERED: LORazepam 0.5MG TABLET PO PRN (10:00)
[2019-01-12 14:00] VITALS: BP 136/78
[2019-01-12] MEDS: LORazepam 0.5MG TABLET PO PRN (19:28)
[2019-01-12] MEDS: HYDROmorphone 2 MG/ML, 1ML IVPush PRN (19:39)
[2019-01-12 20:05] VITALS: BP 159/69
[2019-01-12] MEDS: FENOFIBRATE 145 MG TABLET PO SCH (21:11)
[2019-01-12] MEDS: MONTELUKAST 10 MG TABLET PO SCH (21:12)
[2019-01-13] MEDS: LORazepam 0.5MG TABLET PO PRN ×3 (01:35→20:53)
[2019-01-13 02:35] VITALS: BP 137/64
[2019-01-13] MEDS: OXYcodone IR 30 MG TABLET PO PRN ×6 (02:36→22:34)
[2019-01-13 05:17] LABS: ALANINE AMINOTRANSFERASE 33 U/L (12-78); ALBUMIN 3.3 g/dL (3.4-5.0); ANION GAP 7 mmol/L (5-15); CALCIUM 8.3 mg/dL (8.5-10.1); CHLORIDE 109 mmol/L (98-107); CREATININE 1.08 mg/dL (0.7-1.3)
[2019-01-13 05:20] LABS: ALKALINE PHOSPHATASE 76 U/L (45-117); BILIRUBIN,TOTAL 0.6 mg/dL (0.2-1.0); TOTAL PROTEIN 6.3 g/dL (6.4-8.2)
[2019-01-13] MEDS: HEPARIN 5,000 UNITS/ML, 1ML SQ SCH ×3 (06:25→20:35)
[2019-01-13] MEDS: HYDROmorphone 2 MG/ML, 1ML IVPush PRN ×6 (07:18→23:22)
[2019-01-13 07:52] VITALS: BP 147/78
[2019-01-13] MEDS ORDERED: OxyconTIN ER 15 MG TAB.ER ONE ×2 (08:32→20:29)
[2019-01-13] MEDS ORDERED: OxyconTIN ER 10 MG TAB.ER ONE ×2 (08:32→20:29)
[2019-01-13] MEDS: OxyconTIN ER 40 MG TAB.ER PO SCH ×3 (08:40→20:37)
[2019-01-13] MEDS: FAMOTIDINE 20 MG TABLET PO SCH ×2 (08:41→20:37)
[2019-01-13] MEDS: LISINOPRIL 20 MG TABLET PO SCH ×2 (08:42→20:36)
[2019-01-13] MEDS: AMLODIPINE 5 MG TABLET PO SCH ×2 (08:42→20:36)
[2019-01-13] MEDS: ALLOPURINOL 100 MG TABLET PO SCH ×2 (08:43→20:37)
[2019-01-13] MEDS: ISOSORBIDE DINITRATE 10 MG TABLET PO SCH ×3 (08:43→20:37)
[2019-01-13] MEDS: METOPROLOL TARTRATE 50 MG TABLET PO SCH ×2 (08:44→20:36)
[2019-01-13] MEDS: CETIRIZINE 10 MG TABLET PO SCH (08:44)
[2019-01-13] MEDS: INDOMETHACIN 50 MG CAPSULE PO SCH ×3 (08:45→20:38)
[2019-01-13] MEDS: CYCLOBENZAPRINE 10 MG TABLET PO PRN ×2 (09:57→20:53)
[2019-01-13] MEDS: FERROUS SULFATE 325 MG TABLET PO SCH (11:58)
[2019-01-13] MEDS ORDERED: POLYETHYLENE GLYCOL 17 GM PACKET PO PRN (13:00)
[2019-01-13 14:00] VITALS: BP 153/73
[2019-01-13] MEDS ORDERED: OxyconTIN ER 20 MG TAB.ER ONE (16:02)
[2019-01-13 18:52] VITALS: BP 143/64
[2019-01-13] MEDS: MONTELUKAST 10 MG TABLET PO SCH (20:36)
[2019-01-13] MEDS: FENOFIBRATE 145 MG TABLET PO SCH (20:36)
[2019-01-13 23:41] VITALS: BP 131/64
[2019-01-14] MEDS: HYDROmorphone 2 MG/ML, 1ML IVPush PRN ×3 (02:28→08:43)
[2019-01-14] MEDS: OXYcodone IR 30 MG TABLET PO PRN ×3 (02:28→10:26)
[2019-01-14] MEDS ORDERED: OxyconTIN ER 15 MG TAB.ER ONE (04:47)
[2019-01-14] MEDS ORDERED: OxyconTIN ER 10 MG TAB.ER ONE ×3 (04:47→08:37)
[2019-01-14] MEDS: LORazepam 0.5MG TABLET PO PRN (04:49)
[2019-01-14] MEDS: OxyconTIN ER 40 MG TAB.ER PO SCH (04:50)
[2019-01-14] MEDS: HEPARIN 5,000 UNITS/ML, 1ML SQ SCH (05:36)
[2019-01-14 06:20] LABS: ANION GAP 9 mmol/L (5-15); CALCIUM 8.5 mg/dL (8.5-10.1); CHLORIDE 107 mmol/L (98-107)
[2019-01-14 06:25] LABS: ALANINE AMINOTRANSFERASE 31 U/L (12-78); ALKALINE PHOSPHATASE 70 U/L (45-117); BILIRUBIN,TOTAL 0.5 mg/dL (0.2-1.0); CREATININE 0.96 mg/dL (0.7-1.3); TOTAL PROTEIN 5.9 g/dL (6.4-8.2)
[2019-01-14 08:27] VITALS: BP 174/109
[2019-01-14] MEDS ORDERED: LISI-170 PO (08:36)
[2019-01-14] MEDS ORDERED: PRED20TA PO (08:36)
[2019-01-14] MEDS: INDOMETHACIN 50 MG CAPSULE PO SCH (08:44)
[2019-01-14] MEDS: ISOSORBIDE DINITRATE 10 MG TABLET PO SCH (08:44)
[2019-01-14] MEDS: CETIRIZINE 10 MG TABLET PO SCH (08:44)
[2019-01-14] MEDS: AMLODIPINE 5 MG TABLET PO SCH (08:44)
[2019-01-14] MEDS: FAMOTIDINE 20 MG TABLET PO SCH (08:44)
[2019-01-14] MEDS: LISINOPRIL 20 MG TABLET PO SCH (08:46)
[2019-01-14] MEDS: METOPROLOL TARTRATE 50 MG TABLET PO SCH (08:46)
[2019-01-14] MEDS: ALLOPURINOL 100 MG TABLET PO SCH (08:46)
== END 2019-01-14 10:35 | disposition home health service (06) | DRG 43 ==
LOC: ED 09:53 → EDIP 11:56 → 4WST 12:00 → DCLOUNGE 01-14 10:31
PROVIDERS: ADMIT Internal Medicine; ATTEND Internal Medicine
PROC: 0T9B70Z Drainage of Bladder with Drainage Device, Via Natural or Artificial Opening (ICD-10-PCS; principal; 2019-01-11)
DX: G35 Multiple sclerosis (principal); E87.2 Acidosis; E66.9 Obesity, unspecified; E78.5 Hyperlipidemia, unspecified; Z68.32 Body mass index [BMI] 32.0-32.9, adult; E87.6 Hypokalemia; F41.9 Anxiety disorder, unspecified; G89.4 Chronic pain syndrome; H46.9 Unspecified optic neuritis; I10 Essential (primary) hypertension; K21.9 Gastro-esophageal reflux disease without esophagitis; N31.9 Neuromuscular dysfunction of bladder, unspecified; Z96.653 Presence of artificial knee joint, bilateral; M10.9 Gout, unspecified
CPT/HCPCS: 36415; 71045; 80053; 81003; 83605; 83690; 83735; 85025; 85610; 93005; 96374; G0378; J1170; J1644; J2930; J2060; J7512

== ENCOUNTER 2019-03-13 10:29 | Outpatient (CLI) | payer MEDICAID ==
[~2019-03-13 10:29] MED LIST changes: +LISI-170 PO; +OXYB5TAB10 PO; -OXYB5TAB7 PO; +PRED20TA PO
== END 2019-03-13 23:59 | disposition home or self-care (01) ==
LOC: WOUND 10:29
PROVIDERS: ATTEND Family Medicine
DX: T81.31XD Disruption of external operation (surgical) wound, not elsewhere classified, subsequent encounter (principal); G35 Multiple sclerosis; M10.9 Gout, unspecified; M54.9 Dorsalgia, unspecified; E78.2 Mixed hyperlipidemia; G89.4 Chronic pain syndrome; I10 Essential (primary) hypertension; I87.2 Venous insufficiency (chronic) (peripheral); F41.9 Anxiety disorder, unspecified; M46.26 Osteomyelitis of vertebra, lumbar region; M46.22 Osteomyelitis of vertebra, cervical region; K21.9 Gastro-esophageal reflux disease without esophagitis; F11.20 Opioid dependence, uncomplicated; E66.9 Obesity, unspecified; R26.9 Unspecified abnormalities of gait and mobility; G47.00 Insomnia, unspecified; Z96.653 Presence of artificial knee joint, bilateral; Z68.31 Body mass index [BMI] 31.0-31.9, adult; Z88.6 Allergy status to analgesic agent; Z88.8 Allergy status to other drugs, medicaments and biological substances; Y83.8 Other surgical procedures as the cause of abnormal reaction of the patient, or of later complication, without mention of misadventure at the time of the procedure
CPT/HCPCS: 11042; 99215

== ENCOUNTER → 2019-03-27 | Outpatient (CLI) | payer MEDICAID | END | disposition home or self-care (01) | LOC: WOUND 09:33 | PROVIDERS: ATTEND Family Medicine | DX: T81.31XD Disruption of external operation (surgical) wound, not elsewhere classified, subsequent encounter (principal); G35 Multiple sclerosis; M10.9 Gout, unspecified; M54.9 Dorsalgia, unspecified; E78.2 Mixed hyperlipidemia; G89.4 Chronic pain syndrome; I10 Essential (primary) hypertension; I87.2 Venous insufficiency (chronic) (peripheral); F41.9 Anxiety disorder, unspecified; M46.26 Osteomyelitis of vertebra, lumbar region; M46.22 Osteomyelitis of vertebra, cervical region; K21.9 Gastro-esophageal reflux disease without esophagitis; F11.20 Opioid dependence, uncomplicated; E66.9 Obesity, unspecified; R26.9 Unspecified abnormalities of gait and mobility; G47.00 Insomnia, unspecified; Z96.653 Presence of artificial knee joint, bilateral; Z68.31 Body mass index [BMI] 31.0-31.9, adult; Z88.6 Allergy status to analgesic agent; Z88.8 Allergy status to other drugs, medicaments and biological substances; Y83.8 Other surgical procedures as the cause of abnormal reaction of the patient, or of later complication, without mention of misadventure at the time of the procedure | CPT/HCPCS: 97597 ==

== ENCOUNTER 2019-04-09 08:03 | Inpatient (IN) | payer MEDICAID ==
[~2019-04-09] VITALS: Ht 190.5 cm; Wt 122.4 kg
--- NOTE | 2019-04-09 09:02 | NUR ---
STRAIGHT CATH DONE FOR URINE SAMPLE, SAMPLE WALKED TO LAB
--- NOTE | 2019-04-09 09:24 | NUR ---
MULTIPIPLE ATTEMPTS BY LAB TO DRAW BLOOD AND MULTIPLE ATTEMPTS AT IV ACCESS UNSUCCESSFUL. PER [facility] THEY WERE UNABLE TO ESTABLISH IV ACCESS IN ROUTE EITHER. PT STATES HE HAS HAD MULTIPLE PICC LINES. NOTIFIED. NO STAFF AVAILABLE FOR US IV UNTIL 10AM, ORDERED PICC LINE. AWAITING PICC PLACEMENT.
[2019-04-09 09:53] LABS: MICROSCOPIC NOT IND
[2019-04-09 10:00] LABS: CULTURE INDICATED? NO
[2019-04-09] MEDS ORDERED: SODIUM CHLORIDE FLUSH 10ML SYR IVF ONE (10:00)
--- NOTE | 2019-04-09 10:24 | NUR ---
JOVAN RN AT BEDSIDE FOR US IV
[2019-04-09] MEDS ORDERED: HYDROmorphone 1 MG/ML, 1ML INJ ONE ×2 (10:33→11:57)
[2019-04-09] MEDS: HYDROmorphone 2 MG/ML, 1ML IM PRN ×2 (10:37→12:09)
--- NOTE | 2019-04-09 10:48 | NUR ---
UNABLE TO PLACE US IV, PICC TEAM AT BEDSIDE.
--- NOTE | 2019-04-09 10:49 | NUR ---
PICC RN AT BEDSIDE FOR PLACEMENT
--- NOTE | 2019-04-09 11:02 | NUR ---
LABS DRAWN AND WALKED TO LAB
[2019-04-09 11:26] LABS: BASOPHILS # (AUTO) 0.02 x10^3/uL (0-0.1); BASOPHILS % (AUTO) 0 % (0-1); EOSINOPHILS # (AUTO) 0.03 x10^3/uL (0-0.4); EOSINOPHILS % (AUTO) 1 % (1-7); LYMPHOCYTES # (AUTO) 0.59 x10^3/uL (1-3.4); LYMPHOCYTES % (AUTO) 11 % (22-44); MD NO; MEAN CORPUSCULAR HEMOGLOBIN 30.6 pg (27.5-34.5); MEAN CORPUSCULAR HGB CONC 34.1 g/dL (33.2-36.2); MEAN CORPUSCULAR VOLUME 89.7 fL (81-97); MEAN PLATELET VOLUME 7.4 fL (7.4-10.4); MONOCYTES # (AUTO) 0.51 x10^3/uL (0.2-0.8); MONOCYTES % (AUTO) 10 % (2-9); NEUTROPHILS # (AUTO) 4.07 x10^3/uL (1.8-6.8); NEUTROPHILS % (AUTO) 78 % (42-75); PLATELET COUNT 320 x10^3/uL (130-400); RED CELL DISTRIBUTION WIDTH 13.5 % (9.4-14.8)
[2019-04-09 11:36] LABS: ALANINE AMINOTRANSFERASE 26 U/L (12-78); ALBUMIN 3.3 g/dL (3.4-5.0); ANION GAP 10 mmol/L (5-15); CALCIUM 8.2 mg/dL (8.5-10.1); CHLORIDE 106 mmol/L (98-107); CREATININE 0.85 mg/dL (0.7-1.3)
[2019-04-09 11:38] LABS: ALKALINE PHOSPHATASE 75 U/L (45-117); BILIRUBIN,TOTAL 0.7 mg/dL (0.2-1.0)
--- NOTE | 2019-04-09 12:11 | NUR ---
PT MEDICATED PER MAR, AWAITING BED ASSIGNMENT
--- NOTE | 2019-04-09 12:49 | NUR ---
PT TO IR TO REPLACE/READJUST PICC LINE
--- NOTE | 2019-04-09 13:48 | NUR ---
TASK RN: PT RESTING ON GURNEY. NADN. MOHAN.
[2019-04-09] MEDS: ENOXAPARIN 40 MG/0.4 ML SQ SCH (14:30)
[2019-04-09] MEDS ORDERED: ONDANSETRON 2MG/ML, 2ML IVPush PRN (14:30)
[2019-04-09] MEDS ORDERED: POLYETHYLENE GLYCOL 17 GM PACKET PO PRN (14:30)
[2019-04-09] MEDS ORDERED: HYDROmorphone 1 MG/ML, 1ML INJ IVPush PRN (14:30)
[2019-04-09] MEDS ORDERED: OXYcodone IR 5MG TABLET PO PRN (14:30)
--- NOTE | 2019-04-09 14:43 | NUR ---
REPORT TO GERALD MAYS
[2019-04-09 14:45] LABS: FREE T4 (FREE THYROXINE) 1.37 ng/dL (0.76-1.46)
[2019-04-09] MEDS ORDERED: HYDROmorphone 2 MG/ML, 1ML ONE (15:30)
[2019-04-09] MEDS: LACTOBACILLUS CHEW TABLET PO SCH ×2 (15:38→21:10)
[2019-04-09] MEDS: FERROUS SULFATE 325 MG TABLET PO SCH (15:38)
[2019-04-09] MEDS: ISOSORBIDE DINITRATE 10 MG TABLET PO SCH ×2 (15:39→21:08)
[2019-04-09] MEDS: INDOMETHACIN 50 MG CAPSULE PO SCH ×2 (15:39→21:00)
[2019-04-09 15:51] VITALS: BP 150/90
[2019-04-09] MEDS: OXYcodone IR 30 MG TABLET PO PRN ×2 (18:27→22:15)
[2019-04-09] MEDS: DOXYCYCLINE 100MG TABLET PO SCH (18:27)
[2019-04-09 18:51] VITALS: BP 146/76
[2019-04-09] MEDS ORDERED: OxyconTIN ER 10 MG TAB.ER ONE ×2 (19:31→22:11)
[2019-04-09] MEDS: OxyconTIN ER 40 MG TAB.ER PO SCH ×2 (19:35→21:00)
[2019-04-09] MEDS: FLUTICASONE NASAL SPRAY 16GM NAS SCH (21:00)
[2019-04-09] MEDS: MONTELUKAST 10 MG TABLET PO SCH (21:08)
[2019-04-09] MEDS: ALLOPURINOL 100 MG TABLET PO SCH (21:08)
[2019-04-09] MEDS: METOPROLOL TARTRATE 50 MG TABLET PO SCH (21:08)
[2019-04-09] MEDS: FENOFIBRATE 145 MG TABLET PO SCH (21:08)
[2019-04-09] MEDS: CETIRIZINE 10 MG TABLET PO SCH (21:09)
[2019-04-09] MEDS: LISINOPRIL 20 MG TABLET PO SCH (21:09)
[2019-04-09] MEDS: FAMOTIDINE 20 MG TABLET PO SCH (21:09)
[2019-04-09] MEDS: CALCIUM CARBONATE 500 MG TAB.CHEW PO SCH (21:10)
[2019-04-09] MEDS: CARISOPRODOL 350 MG TABLET PO PRN (21:21)
[2019-04-09] MEDS: ACETAMINOPHEN 325 MG TABLET PO PRN (22:14)
[2019-04-10 00:08] VITALS: BP 117/67
[2019-04-10] MEDS: OXYcodone IR 30 MG TABLET PO PRN ×6 (02:17→22:56)
[2019-04-10 04:40] LABS: MICROSCOPIC INDICATED
[2019-04-10 04:43] LABS: CULTURE INDICATED? NO
[2019-04-10] MEDS: DOXYCYCLINE 100MG TABLET PO SCH ×2 (06:14→17:58)
[2019-04-10 06:26] LABS: ANION GAP 7 mmol/L (5-15); CALCIUM 8.7 mg/dL (8.5-10.1); CHLORIDE 106 mmol/L (98-107)
[2019-04-10 06:27] LABS: CREATININE 1.07 mg/dL (0.7-1.3)
[2019-04-10 06:33] LABS: BASOPHILS # (AUTO) 0.02 x10^3/uL (0-0.1); BASOPHILS % (AUTO) 0 % (0-1); EOSINOPHILS # (AUTO) 0.04 x10^3/uL (0-0.4); EOSINOPHILS % (AUTO) 0 % (1-7); LYMPHOCYTES % (AUTO) 8 % (22-44); MD NO; MEAN CORPUSCULAR HEMOGLOBIN 30.2 pg (27.5-34.5); MEAN CORPUSCULAR HGB CONC 33.5 g/dL (33.2-36.2); MEAN CORPUSCULAR VOLUME 90.1 fL (81-97); MEAN PLATELET VOLUME 7.6 fL (7.4-10.4); MONOCYTES # (AUTO) 1.08 x10^3/uL (0.2-0.8); MONOCYTES % (AUTO) 12 % (2-9); NEUTROPHILS # (AUTO) 7.07 x10^3/uL (1.8-6.8); NEUTROPHILS % (AUTO) 79 % (42-75); PLATELET COUNT 293 x10^3/uL (130-400); RED BLOOD COUNT 4.54 x10^6/uL (4.38-5.82); RED CELL DISTRIBUTION WIDTH 13.7 % (9.4-14.8)
[2019-04-10 08:00] VITALS: BP 165/94
[2019-04-10] MEDS: ALLOPURINOL 100 MG TABLET PO SCH ×2 (08:23→20:25)
[2019-04-10] MEDS: CHOLECALCIFEROL 1,000 UNIT TABLET PO SCH (08:23)
[2019-04-10] MEDS: CALCIUM CARBONATE 500 MG TAB.CHEW PO SCH ×2 (08:23→20:24)
[2019-04-10] MEDS: MULTIVITAMINS/MINERALS TABLET PO SCH (08:23)
[2019-04-10] MEDS: ASCORBIC ACID 500 MG TABLET PO SCH (08:23)
[2019-04-10] MEDS: LACTOBACILLUS CHEW TABLET PO SCH ×3 (08:23→20:27)
[2019-04-10] MEDS: CETIRIZINE 10 MG TABLET PO SCH ×2 (08:24→20:26)
[2019-04-10] MEDS: FAMOTIDINE 20 MG TABLET PO SCH ×2 (08:24→20:26)
[2019-04-10] MEDS: LISINOPRIL 20 MG TABLET PO SCH ×2 (08:24→20:26)
[2019-04-10] MEDS: INDOMETHACIN 50 MG CAPSULE PO SCH ×3 (08:24→20:24)
[2019-04-10] MEDS: METOPROLOL TARTRATE 50 MG TABLET PO SCH ×2 (08:24→20:26)
[2019-04-10] MEDS: OxyconTIN ER 40 MG TAB.ER PO SCH ×3 (09:00→20:22)
[2019-04-10] MEDS: ISOSORBIDE DINITRATE 10 MG TABLET PO SCH ×3 (09:52→20:26)
[2019-04-10] MEDS ORDERED: OxyconTIN ER 20 MG TAB.ER ONE (10:19)
[2019-04-10] MEDS: FLUTICASONE NASAL SPRAY 16GM NAS SCH ×2 (14:20→20:27)
[2019-04-10] MEDS ORDERED: LIDOCAINE GEL 2%, 5ML TP PRN (14:30)
[2019-04-10] MEDS ORDERED: OxyconTIN ER 10 MG TAB.ER ONE ×2 (16:33→20:14)
[2019-04-10 17:24] VITALS: BP 154/88
[2019-04-10] MEDS: ENOXAPARIN 40 MG/0.4 ML SQ SCH (17:59)
[2019-04-10 19:50] VITALS: BP 138/79
[2019-04-10] MEDS: FENOFIBRATE 145 MG TABLET PO SCH (20:24)
[2019-04-10] MEDS: MONTELUKAST 10 MG TABLET PO SCH (20:24)
[2019-04-11 01:20] VITALS: BP 154/82
[2019-04-11] MEDS: OXYcodone IR 30 MG TABLET PO PRN ×5 (02:59→21:27)
[2019-04-11] MEDS: DOXYCYCLINE 100MG TABLET PO SCH ×2 (06:20→17:11)
[2019-04-11 07:10] VITALS: BP 154/82
[2019-04-11] MEDS: INDOMETHACIN 50 MG CAPSULE PO SCH ×3 (09:00→20:39)
[2019-04-11] MEDS: OxyconTIN ER 40 MG TAB.ER PO SCH ×3 (09:00→20:39)
[2019-04-11] MEDS ORDERED: AMLODIPINE 5 MG TABLET PO SCH (09:00)
[2019-04-11] MEDS ORDERED: OxyconTIN ER 20 MG TAB.ER ONE ×3 (09:14→20:30)
[2019-04-11] MEDS: FLUTICASONE NASAL SPRAY 16GM NAS SCH ×2 (09:18→20:39)
[2019-04-11] MEDS: FAMOTIDINE 20 MG TABLET PO SCH ×2 (09:19→20:37)
[2019-04-11] MEDS: CETIRIZINE 10 MG TABLET PO SCH ×2 (09:20→20:38)
[2019-04-11] MEDS: MULTIVITAMINS/MINERALS TABLET PO SCH (09:20)
[2019-04-11] MEDS: CHOLECALCIFEROL 1,000 UNIT TABLET PO SCH (09:20)
[2019-04-11] MEDS: ASCORBIC ACID 500 MG TABLET PO SCH (09:20)
[2019-04-11] MEDS: CALCIUM CARBONATE 500 MG TAB.CHEW PO SCH ×2 (09:20→20:40)
[2019-04-11] MEDS: METOPROLOL TARTRATE 50 MG TABLET PO SCH ×2 (09:21→20:38)
[2019-04-11] MEDS: ISOSORBIDE DINITRATE 10 MG TABLET PO SCH ×3 (09:21→20:39)
[2019-04-11] MEDS: LACTOBACILLUS CHEW TABLET PO SCH ×3 (09:21→20:37)
[2019-04-11] MEDS: ALLOPURINOL 100 MG TABLET PO SCH ×2 (09:21→20:38)
[2019-04-11] MEDS: LISINOPRIL 20 MG TABLET PO SCH ×2 (09:21→20:39)
[2019-04-11] MEDS ORDERED: HYDROmorphone 2 MG/ML, 1ML ONE ×4 (11:09→22:05)
[2019-04-11] MEDS: HYDROmorphone 1 MG/ML, 1ML INJ IV PRN ×4 (11:12→22:07)
[2019-04-11 12:43] VITALS: BP 181/102
[2019-04-11] MEDS: hydrALAzine 20 MG/ML, 1ML IV PRN (13:10)
[2019-04-11] MEDS: FERROUS SULFATE 325 MG TABLET PO SCH (14:14)
[2019-04-11 14:15] VITALS: BP 143/71
[2019-04-11] MEDS: ENOXAPARIN 40 MG/0.4 ML SQ SCH (17:11)
[2019-04-11 19:51] VITALS: BP 153/90
[2019-04-11] MEDS: MONTELUKAST 10 MG TABLET PO SCH (20:37)
[2019-04-11] MEDS: FENOFIBRATE 145 MG TABLET PO SCH (20:38)
[2019-04-11] MEDS: TRAZODONE 50MG TABLET PO SCH (20:38)
[2019-04-12 01:17] VITALS: BP 121/73
[2019-04-12] MEDS ORDERED: HYDROmorphone 2 MG/ML, 1ML ONE ×7 (01:21→20:56)
[2019-04-12] MEDS: HYDROmorphone 1 MG/ML, 1ML INJ IV PRN ×6 (01:24→20:58)
[2019-04-12] MEDS: OXYcodone IR 30 MG TABLET PO PRN ×5 (02:00→19:43)
[2019-04-12] MEDS: DOXYCYCLINE 100MG TABLET PO SCH ×2 (05:09→16:51)
[2019-04-12 06:53] VITALS: BP 189/99
[2019-04-12] MEDS ORDERED: OxyconTIN ER 20 MG TAB.ER ONE ×3 (07:31→20:14)
[2019-04-12] MEDS: CALCIUM CARBONATE 500 MG TAB.CHEW PO SCH ×2 (07:35→20:20)
[2019-04-12] MEDS: CHOLECALCIFEROL 1,000 UNIT TABLET PO SCH (07:35)
[2019-04-12] MEDS: FLUTICASONE NASAL SPRAY 16GM NAS SCH ×2 (07:35→21:00)
[2019-04-12] MEDS: INDOMETHACIN 50 MG CAPSULE PO SCH ×3 (07:36→20:20)
[2019-04-12] MEDS: ALLOPURINOL 100 MG TABLET PO SCH ×2 (07:36→20:21)
[2019-04-12] MEDS: CETIRIZINE 10 MG TABLET PO SCH ×2 (07:36→20:21)
[2019-04-12] MEDS: OxyconTIN ER 40 MG TAB.ER PO SCH ×3 (07:36→20:18)
[2019-04-12] MEDS: METOPROLOL TARTRATE 50 MG TABLET PO SCH ×2 (07:36→20:21)
[2019-04-12] MEDS: LACTOBACILLUS CHEW TABLET PO SCH ×3 (07:36→20:20)
[2019-04-12] MEDS: FAMOTIDINE 20 MG TABLET PO SCH ×2 (07:36→20:18)
[2019-04-12] MEDS: ASCORBIC ACID 500 MG TABLET PO SCH (07:37)
[2019-04-12] MEDS: AMLODIPINE 5 MG TABLET PO SCH (07:37)
[2019-04-12] MEDS: ISOSORBIDE DINITRATE 10 MG TABLET PO SCH ×3 (07:37→20:20)
[2019-04-12] MEDS: MULTIVITAMINS/MINERALS TABLET PO SCH (07:37)
[2019-04-12] MEDS: LISINOPRIL 20 MG TABLET PO SCH ×2 (07:37→20:21)
[2019-04-12] MEDS ORDERED: CATHFLO-ALTEPLASE 2 MG/2 ML CATHFLUSH ONE ×3 (09:30→20:00)
[2019-04-12] MEDS: CARISOPRODOL 350 MG TABLET PO PRN (12:44)
[2019-04-12] MEDS: ACETAMINOPHEN 325 MG TABLET PO PRN (12:44)
[2019-04-12 13:21] VITALS: BP 163/74
[2019-04-12] MEDS: ENOXAPARIN 40 MG/0.4 ML SQ SCH (16:51)
[2019-04-12 18:42] VITALS: BP 161/84
[2019-04-12] MEDS: FENOFIBRATE 145 MG TABLET PO SCH (20:19)
[2019-04-12] MEDS: MONTELUKAST 10 MG TABLET PO SCH (20:20)
[2019-04-12] MEDS: TRAZODONE 50MG TABLET PO SCH (20:21)
[2019-04-13] MEDS ORDERED: HYDROmorphone 2 MG/ML, 1ML ONE ×7 (00:04→22:18)
[2019-04-13] MEDS: HYDROmorphone 1 MG/ML, 1ML INJ IV PRN ×7 (00:05→22:24)
[2019-04-13 01:01] VITALS: BP 150/83
[2019-04-13] MEDS: OXYcodone IR 30 MG TABLET PO PRN ×5 (04:15→21:11)
[2019-04-13] MEDS: DOXYCYCLINE 100MG TABLET PO SCH ×2 (06:04→17:06)
[2019-04-13 07:50] VITALS: BP 180/104
[2019-04-13] MEDS ORDERED: OxyconTIN ER 20 MG TAB.ER ONE (08:16)
[2019-04-13] MEDS: FLUTICASONE NASAL SPRAY 16GM NAS SCH ×2 (08:20→21:00)
[2019-04-13] MEDS: CALCIUM CARBONATE 500 MG TAB.CHEW PO SCH ×2 (08:21→21:53)
[2019-04-13] MEDS: ASCORBIC ACID 500 MG TABLET PO SCH (08:21)
[2019-04-13] MEDS: MULTIVITAMINS/MINERALS TABLET PO SCH (08:21)
[2019-04-13] MEDS: LISINOPRIL 20 MG TABLET PO SCH ×2 (08:21→22:27)
[2019-04-13] MEDS: LACTOBACILLUS CHEW TABLET PO SCH ×3 (08:21→22:26)
[2019-04-13] MEDS: CHOLECALCIFEROL 1,000 UNIT TABLET PO SCH (08:21)
[2019-04-13] MEDS: AMLODIPINE 5 MG TABLET PO SCH (08:22)
[2019-04-13] MEDS: CETIRIZINE 10 MG TABLET PO SCH ×2 (08:22→21:53)
[2019-04-13] MEDS: ISOSORBIDE DINITRATE 10 MG TABLET PO SCH ×3 (08:22→22:26)
[2019-04-13] MEDS: FAMOTIDINE 20 MG TABLET PO SCH ×2 (08:22→21:53)
[2019-04-13] MEDS: METOPROLOL TARTRATE 50 MG TABLET PO SCH ×2 (08:23→22:26)
[2019-04-13] MEDS: ALLOPURINOL 100 MG TABLET PO SCH ×2 (08:23→21:53)
[2019-04-13] MEDS: INDOMETHACIN 50 MG CAPSULE PO SCH ×3 (08:30→21:00)
[2019-04-13] MEDS: OxyconTIN ER 40 MG TAB.ER PO SCH (08:30)
[2019-04-13] MEDS: OXYcodone IR 5MG TABLET PO PRN ×4 (10:01→23:03)
[2019-04-13 12:31] VITALS: BP 172/112
[2019-04-13] MEDS: hydrALAzine 20 MG/ML, 1ML IV PRN (12:52)
[2019-04-13] MEDS: FERROUS SULFATE 325 MG TABLET PO SCH (14:08)
[2019-04-13 14:09] VITALS: BP 131/97
[2019-04-13] MEDS: OxyconTIN ER 10 MG TAB.ER PO SCH ×2 (16:00→21:54)
[2019-04-13] MEDS: ENOXAPARIN 40 MG/0.4 ML SQ SCH (17:06)
[2019-04-13 20:02] VITALS: BP 159/94
[2019-04-13] MEDS: TRAZODONE 50MG TABLET PO SCH (21:52)
[2019-04-13] MEDS: FENOFIBRATE 145 MG TABLET PO SCH (21:53)
[2019-04-13 22:23] VITALS: BP 135/71
[2019-04-13] MEDS: MONTELUKAST 10 MG TABLET PO SCH (22:26)
[2019-04-14] MEDS: OXYcodone IR 30 MG TABLET PO PRN ×5 (01:17→22:48)
[2019-04-14 01:20] VITALS: BP 126/67
[2019-04-14] MEDS: HYDROmorphone 2 MG/ML, 1ML IV PRN ×7 (02:45→22:13)
[2019-04-14] MEDS: OXYcodone IR 5MG TABLET PO PRN ×4 (03:53→19:47)
[2019-04-14] MEDS: DOXYCYCLINE 100MG TABLET PO SCH ×2 (05:30→17:05)
[2019-04-14 07:34] VITALS: BP 166/98
[2019-04-14] MEDS ORDERED: OxyconTIN ER 20 MG TAB.ER ONE ×2 (08:30→21:07)
[2019-04-14] MEDS: LISINOPRIL 20 MG TABLET PO SCH ×2 (08:33→21:57)
[2019-04-14] MEDS: FAMOTIDINE 20 MG TABLET PO SCH ×2 (08:33→21:57)
[2019-04-14] MEDS: CETIRIZINE 10 MG TABLET PO SCH ×2 (08:33→21:57)
[2019-04-14] MEDS: METOPROLOL TARTRATE 50 MG TABLET PO SCH ×2 (08:34→21:57)
[2019-04-14] MEDS: CALCIUM CARBONATE 500 MG TAB.CHEW PO SCH ×2 (08:34→21:57)
[2019-04-14] MEDS: AMLODIPINE 5 MG TABLET PO SCH (08:35)
[2019-04-14] MEDS: LACTOBACILLUS CHEW TABLET PO SCH ×3 (08:35→21:58)
[2019-04-14] MEDS: CHOLECALCIFEROL 1,000 UNIT TABLET PO SCH (08:35)
[2019-04-14] MEDS: ALLOPURINOL 100 MG TABLET PO SCH ×2 (08:36→21:55)
[2019-04-14] MEDS: MULTIVITAMINS/MINERALS TABLET PO SCH (08:36)
[2019-04-14] MEDS: ASCORBIC ACID 500 MG TABLET PO SCH (08:36)
[2019-04-14] MEDS: ISOSORBIDE DINITRATE 10 MG TABLET PO SCH ×3 (08:36→21:58)
[2019-04-14] MEDS: INDOMETHACIN 50 MG CAPSULE PO SCH ×3 (08:37→21:56)
[2019-04-14] MEDS: OxyconTIN ER 10 MG TAB.ER PO SCH ×3 (08:38→21:55)
[2019-04-14] MEDS: FLUTICASONE NASAL SPRAY 16GM NAS SCH ×2 (08:38→21:58)
[2019-04-14 12:39] VITALS: BP 189/109
[2019-04-14] MEDS: hydrALAzine 20 MG/ML, 1ML IV PRN (13:00)
[2019-04-14 13:35] VITALS: BP 144/86
[2019-04-14] MEDS: ENOXAPARIN 40 MG/0.4 ML SQ SCH (17:42)
[2019-04-14 19:48] VITALS: BP 159/95
[2019-04-14] MEDS: FENOFIBRATE 145 MG TABLET PO SCH (21:57)
[2019-04-14] MEDS: TRAZODONE 50MG TABLET PO SCH (21:58)
[2019-04-14] MEDS: MONTELUKAST 10 MG TABLET PO SCH (21:58)
[2019-04-15] MEDS: HYDROmorphone 2 MG/ML, 1ML IV PRN ×3 (03:07→09:33)
[2019-04-15 03:12] VITALS: BP 162/96
[2019-04-15] MEDS: OXYcodone IR 30 MG TABLET PO PRN ×2 (04:11→11:54)
[2019-04-15] MEDS: DOXYCYCLINE 100MG TABLET PO SCH (04:43)
[2019-04-15 07:28] VITALS: BP 167/101
[2019-04-15] MEDS: FLUTICASONE NASAL SPRAY 16GM NAS SCH (09:00)
[2019-04-15] MEDS: INDOMETHACIN 50 MG CAPSULE PO SCH (09:00)
[2019-04-15] MEDS ORDERED: DOXY100T PO (09:24)
[2019-04-15] MEDS ORDERED: HYDR-3342 PO (09:24)
[2019-04-15] MEDS ORDERED: PRED20TA PO (09:24)
[2019-04-15] MEDS: CALCIUM CARBONATE 500 MG TAB.CHEW PO SCH (09:28)
[2019-04-15] MEDS: LACTOBACILLUS CHEW TABLET PO SCH (09:29)
[2019-04-15] MEDS: LISINOPRIL 20 MG TABLET PO SCH (09:29)
[2019-04-15] MEDS: CHOLECALCIFEROL 1,000 UNIT TABLET PO SCH (09:29)
[2019-04-15] MEDS: ASCORBIC ACID 500 MG TABLET PO SCH (09:29)
[2019-04-15] MEDS: FAMOTIDINE 20 MG TABLET PO SCH (09:29)
[2019-04-15] MEDS: METOPROLOL TARTRATE 50 MG TABLET PO SCH (09:31)
[2019-04-15] MEDS: ALLOPURINOL 100 MG TABLET PO SCH (09:31)
[2019-04-15] MEDS: AMLODIPINE 5 MG TABLET PO SCH (09:31)
[2019-04-15] MEDS: MULTIVITAMINS/MINERALS TABLET PO SCH (09:31)
[2019-04-15] MEDS: OxyconTIN ER 10 MG TAB.ER PO SCH (09:32)
[2019-04-15] MEDS: ISOSORBIDE DINITRATE 10 MG TABLET PO SCH (09:32)
[2019-04-15] MEDS: CETIRIZINE 10 MG TABLET PO SCH (09:32)
== END 2019-04-15 14:22 | disposition home health service (06) | DRG 43 ==
LOC: ED 10:12 → EDIP 11:36 → 3N 15:06
PROVIDERS: ADMIT Hospitalist; ATTEND Hospitalist
PROC: 0T9B70Z Drainage of Bladder with Drainage Device, Via Natural or Artificial Opening (ICD-10-PCS; principal; 2019-04-09)
PROC: 05H533Z Insertion of Infusion Device into Right Subclavian Vein, Percutaneous Approach (ICD-10-PCS; 2019-04-09)
PROC: B546ZZA Ultrasonography of Right Subclavian Vein, Guidance (ICD-10-PCS; 2019-04-09)
PROC: 02HV33Z Insertion of Infusion Device into Superior Vena Cava, Percutaneous Approach (ICD-10-PCS; 2019-04-09)
PROC: B5181ZA Fluoroscopy of Superior Vena Cava using Low Osmolar Contrast, Guidance (ICD-10-PCS; 2019-04-09)
DX: G35 Multiple sclerosis (principal); E66.9 Obesity, unspecified; E78.1 Pure hyperglyceridemia; G89.4 Chronic pain syndrome; H46.9 Unspecified optic neuritis; I10 Essential (primary) hypertension; J45.909 Unspecified asthma, uncomplicated; K21.9 Gastro-esophageal reflux disease without esophagitis; M10.9 Gout, unspecified; M81.0 Age-related osteoporosis without current pathological fracture; Z99.3 Dependence on wheelchair; Z96.653 Presence of artificial knee joint, bilateral; Z87.891 Personal history of nicotine dependence; Z80.7 Family history of other malignant neoplasms of lymphoid, hematopoietic and related tissues; Z68.33 Body mass index [BMI] 33.0-33.9, adult
CPT/HCPCS: 36415; 36573; 71045; 72110; 77001; 80048; 80053; 81001; 81003; 83735; 84100; 84439; 84443; 85025; 85651; 99285; G0378; J1170; J1650; J2930; C1751; J0360; J7512

== ENCOUNTER 2019-05-01 08:28 | Outpatient (CLI) | payer MEDICAID ==
[~2019-05-01 08:28] MED LIST changes: +FENO145T19 PO; -FENO145T30 PO; +HYDR-3342 PO; +MONT10TA11 PO; -MONT10TA9 PO
== END 2019-05-01 23:59 | disposition home or self-care (01) ==
LOC: WOUND 08:28
PROVIDERS: ATTEND Family Medicine
DX: T81.31XD Disruption of external operation (surgical) wound, not elsewhere classified, subsequent encounter (principal); G35 Multiple sclerosis; M10.9 Gout, unspecified; M54.9 Dorsalgia, unspecified; E78.2 Mixed hyperlipidemia; G89.4 Chronic pain syndrome; I10 Essential (primary) hypertension; I87.2 Venous insufficiency (chronic) (peripheral); F41.9 Anxiety disorder, unspecified; M46.26 Osteomyelitis of vertebra, lumbar region; M46.22 Osteomyelitis of vertebra, cervical region; K21.9 Gastro-esophageal reflux disease without esophagitis; F11.20 Opioid dependence, uncomplicated; E66.9 Obesity, unspecified; R26.9 Unspecified abnormalities of gait and mobility; G47.00 Insomnia, unspecified; Z96.653 Presence of artificial knee joint, bilateral; Z68.31 Body mass index [BMI] 31.0-31.9, adult; Z88.6 Allergy status to analgesic agent; Z88.8 Allergy status to other drugs, medicaments and biological substances; Y83.8 Other surgical procedures as the cause of abnormal reaction of the patient, or of later complication, without mention of misadventure at the time of the procedure
CPT/HCPCS: 97597

== ENCOUNTER → 2019-05-22 | Outpatient (CLI) | payer MEDICAID | END | disposition home or self-care (01) | LOC: WOUND 08:07 | PROVIDERS: ATTEND Family Medicine | DX: T81.31XD Disruption of external operation (surgical) wound, not elsewhere classified, subsequent encounter (principal); I10 Essential (primary) hypertension; I87.2 Venous insufficiency (chronic) (peripheral); E78.2 Mixed hyperlipidemia; E78.1 Pure hyperglyceridemia; E66.9 Obesity, unspecified; K21.9 Gastro-esophageal reflux disease without esophagitis; G89.4 Chronic pain syndrome; G35 Multiple sclerosis; G47.00 Insomnia, unspecified; M10.9 Gout, unspecified; M46.22 Osteomyelitis of vertebra, cervical region; M46.26 Osteomyelitis of vertebra, lumbar region; M81.0 Age-related osteoporosis without current pathological fracture; R26.9 Unspecified abnormalities of gait and mobility; J45.909 Unspecified asthma, uncomplicated; F11.20 Opioid dependence, uncomplicated; F41.9 Anxiety disorder, unspecified; Z68.31 Body mass index [BMI] 31.0-31.9, adult; Z96.653 Presence of artificial knee joint, bilateral; Z88.6 Allergy status to analgesic agent; Z88.8 Allergy status to other drugs, medicaments and biological substances; Z99.3 Dependence on wheelchair; Z87.891 Personal history of nicotine dependence; Y83.8 Other surgical procedures as the cause of abnormal reaction of the patient, or of later complication, without mention of misadventure at the time of the procedure | CPT/HCPCS: 97602 ==

== ENCOUNTER 2019-06-12 07:53 | Outpatient (CLI) | payer MEDICAID | END 2019-06-12 23:59 | disposition home or self-care (01) | LOC: WOUND 07:53 | PROVIDERS: ATTEND Family Medicine | DX: T81.31XD Disruption of external operation (surgical) wound, not elsewhere classified, subsequent encounter (principal); S31.000D Unspecified open wound of lower back and pelvis without penetration into retroperitoneum, subsequent encounter; I87.2 Venous insufficiency (chronic) (peripheral); I10 Essential (primary) hypertension; G35 Multiple sclerosis; E78.5 Hyperlipidemia, unspecified; E78.2 Mixed hyperlipidemia; K21.9 Gastro-esophageal reflux disease without esophagitis; M10.9 Gout, unspecified; G89.4 Chronic pain syndrome; M46.22 Osteomyelitis of vertebra, cervical region; M46.26 Osteomyelitis of vertebra, lumbar region; J45.909 Unspecified asthma, uncomplicated; M81.0 Age-related osteoporosis without current pathological fracture; G47.00 Insomnia, unspecified; F41.9 Anxiety disorder, unspecified; Z87.891 Personal history of nicotine dependence; Z96.653 Presence of artificial knee joint, bilateral; Z68.31 Body mass index [BMI] 31.0-31.9, adult; X58.XXXD Exposure to other specified factors, subsequent encounter; Y83.8 Other surgical procedures as the cause of abnormal reaction of the patient, or of later complication, without mention of misadventure at the time of the procedure | CPT/HCPCS: 97597 ==

== ENCOUNTER → 2019-06-26 | Outpatient (CLI) | payer MEDICAID | END | disposition home or self-care (01) | LOC: WOUND 07:59 | PROVIDERS: ATTEND Family Medicine | DX: T81.31XD Disruption of external operation (surgical) wound, not elsewhere classified, subsequent encounter (principal); I87.313 Chronic venous hypertension (idiopathic) with ulcer of bilateral lower extremity; L97.821 Non-pressure chronic ulcer of other part of left lower leg limited to breakdown of skin; L97.811 Non-pressure chronic ulcer of other part of right lower leg limited to breakdown of skin; M81.0 Age-related osteoporosis without current pathological fracture; M46.22 Osteomyelitis of vertebra, cervical region; M46.26 Osteomyelitis of vertebra, lumbar region; M10.9 Gout, unspecified; G89.4 Chronic pain syndrome; G35 Multiple sclerosis; G47.00 Insomnia, unspecified; I87.2 Venous insufficiency (chronic) (peripheral); E78.2 Mixed hyperlipidemia; E78.1 Pure hyperglyceridemia; K21.9 Gastro-esophageal reflux disease without esophagitis; R26.9 Unspecified abnormalities of gait and mobility; J45.909 Unspecified asthma, uncomplicated; E66.9 Obesity, unspecified; F41.9 Anxiety disorder, unspecified; F11.20 Opioid dependence, uncomplicated; Z87.891 Personal history of nicotine dependence; Z96.653 Presence of artificial knee joint, bilateral; Z88.6 Allergy status to analgesic agent; Z88.8 Allergy status to other drugs, medicaments and biological substances; Y83.8 Other surgical procedures as the cause of abnormal reaction of the patient, or of later complication, without mention of misadventure at the time of the procedure | CPT/HCPCS: 97597 ==

== ENCOUNTER → 2019-07-10 | Outpatient (CLI) | payer MEDICAID | END | disposition home or self-care (01) | LOC: WOUND 07:56 | PROVIDERS: ATTEND Family Medicine | DX: T81.31XD Disruption of external operation (surgical) wound, not elsewhere classified, subsequent encounter (principal); I87.312 Chronic venous hypertension (idiopathic) with ulcer of left lower extremity; L97.221 Non-pressure chronic ulcer of left calf limited to breakdown of skin; I87.301 Chronic venous hypertension (idiopathic) without complications of right lower extremity; G35 Multiple sclerosis; E78.2 Mixed hyperlipidemia; E78.5 Hyperlipidemia, unspecified; K21.9 Gastro-esophageal reflux disease without esophagitis; M10.9 Gout, unspecified; G47.30 Sleep apnea, unspecified; M46.22 Osteomyelitis of vertebra, cervical region; M46.26 Osteomyelitis of vertebra, lumbar region; M81.0 Age-related osteoporosis without current pathological fracture; E66.9 Obesity, unspecified; F41.9 Anxiety disorder, unspecified; Z87.891 Personal history of nicotine dependence; Z68.31 Body mass index [BMI] 31.0-31.9, adult; Z96.653 Presence of artificial knee joint, bilateral; Z86.14 Personal history of Methicillin resistant Staphylococcus aureus infection; Y83.8 Other surgical procedures as the cause of abnormal reaction of the patient, or of later complication, without mention of misadventure at the time of the procedure | CPT/HCPCS: 97597 ==

== ENCOUNTER → 2019-07-31 | Outpatient (CLI) | payer MEDICAID | END | disposition home or self-care (01) | LOC: WOUND 08:00 | PROVIDERS: ATTEND Family Medicine | DX: T81.31XD Disruption of external operation (surgical) wound, not elsewhere classified, subsequent encounter (principal); I87.312 Chronic venous hypertension (idiopathic) with ulcer of left lower extremity; L97.221 Non-pressure chronic ulcer of left calf limited to breakdown of skin; I87.301 Chronic venous hypertension (idiopathic) without complications of right lower extremity; G35 Multiple sclerosis; E78.2 Mixed hyperlipidemia; K21.9 Gastro-esophageal reflux disease without esophagitis; M10.9 Gout, unspecified; G47.30 Sleep apnea, unspecified; M46.22 Osteomyelitis of vertebra, cervical region; M46.26 Osteomyelitis of vertebra, lumbar region; M81.0 Age-related osteoporosis without current pathological fracture; E66.9 Obesity, unspecified; F41.9 Anxiety disorder, unspecified; Z87.891 Personal history of nicotine dependence; Z68.31 Body mass index [BMI] 31.0-31.9, adult; Z96.653 Presence of artificial knee joint, bilateral; Z86.14 Personal history of Methicillin resistant Staphylococcus aureus infection; Y83.8 Other surgical procedures as the cause of abnormal reaction of the patient, or of later complication, without mention of misadventure at the time of the procedure | CPT/HCPCS: 97597 ==

== ENCOUNTER 2019-08-21 07:53 | Outpatient (CLI) | payer MEDICAID ==
[~2019-08-21 07:53] MED LIST changes: -ASCO-254 PO; +ASCO500T93 PO; -OXYC30TA PO; +OXYC30TA3 PO
== END 2019-08-21 23:59 | disposition home or self-care (01) ==
LOC: WOUND 07:53
PROVIDERS: ATTEND Family Medicine
DX: T81.31XD Disruption of external operation (surgical) wound, not elsewhere classified, subsequent encounter (principal); I87.312 Chronic venous hypertension (idiopathic) with ulcer of left lower extremity; L97.221 Non-pressure chronic ulcer of left calf limited to breakdown of skin; I87.301 Chronic venous hypertension (idiopathic) without complications of right lower extremity; G35 Multiple sclerosis; E78.2 Mixed hyperlipidemia; K21.9 Gastro-esophageal reflux disease without esophagitis; M10.9 Gout, unspecified; G47.30 Sleep apnea, unspecified; M46.22 Osteomyelitis of vertebra, cervical region; M46.26 Osteomyelitis of vertebra, lumbar region; M81.0 Age-related osteoporosis without current pathological fracture; E66.9 Obesity, unspecified; F41.9 Anxiety disorder, unspecified; Z87.891 Personal history of nicotine dependence; Z68.31 Body mass index [BMI] 31.0-31.9, adult; Z96.653 Presence of artificial knee joint, bilateral; Z86.14 Personal history of Methicillin resistant Staphylococcus aureus infection; Y83.8 Other surgical procedures as the cause of abnormal reaction of the patient, or of later complication, without mention of misadventure at the time of the procedure
CPT/HCPCS: 97597

== ENCOUNTER 2019-09-02 08:23 | Outpatient (CLI) | payer MEDICAID | END 2019-09-02 23:59 | disposition home or self-care (01) | LOC: WOUND 08:23 | PROVIDERS: ATTEND Internal Medicine | DX: T81.31XD Disruption of external operation (surgical) wound, not elsewhere classified, subsequent encounter (principal); I87.313 Chronic venous hypertension (idiopathic) with ulcer of bilateral lower extremity; L97.221 Non-pressure chronic ulcer of left calf limited to breakdown of skin; L97.821 Non-pressure chronic ulcer of other part of left lower leg limited to breakdown of skin; I87.301 Chronic venous hypertension (idiopathic) without complications of right lower extremity; G35 Multiple sclerosis; E78.2 Mixed hyperlipidemia; K21.9 Gastro-esophageal reflux disease without esophagitis; M10.9 Gout, unspecified; G47.30 Sleep apnea, unspecified; M46.22 Osteomyelitis of vertebra, cervical region; M46.26 Osteomyelitis of vertebra, lumbar region; M81.0 Age-related osteoporosis without current pathological fracture; E66.9 Obesity, unspecified; F41.9 Anxiety disorder, unspecified; Z87.891 Personal history of nicotine dependence; Z68.31 Body mass index [BMI] 31.0-31.9, adult; Z96.653 Presence of artificial knee joint, bilateral; Z86.14 Personal history of Methicillin resistant Staphylococcus aureus infection; Y83.8 Other surgical procedures as the cause of abnormal reaction of the patient, or of later complication, without mention of misadventure at the time of the procedure | CPT/HCPCS: 97597; 97598 ==

== ENCOUNTER → 2019-09-09 | Outpatient (CLI) | payer MEDICAID | END | disposition home or self-care (01) | LOC: WOUND 07:57 | PROVIDERS: ATTEND Internal Medicine | DX: T81.31XD Disruption of external operation (surgical) wound, not elsewhere classified, subsequent encounter (principal); I87.313 Chronic venous hypertension (idiopathic) with ulcer of bilateral lower extremity; L97.221 Non-pressure chronic ulcer of left calf limited to breakdown of skin; L97.821 Non-pressure chronic ulcer of other part of left lower leg limited to breakdown of skin; I87.301 Chronic venous hypertension (idiopathic) without complications of right lower extremity; G35 Multiple sclerosis; E78.2 Mixed hyperlipidemia; K21.9 Gastro-esophageal reflux disease without esophagitis; M10.9 Gout, unspecified; G47.30 Sleep apnea, unspecified; M46.22 Osteomyelitis of vertebra, cervical region; M46.26 Osteomyelitis of vertebra, lumbar region; M81.0 Age-related osteoporosis without current pathological fracture; E66.9 Obesity, unspecified; F41.9 Anxiety disorder, unspecified; Z87.891 Personal history of nicotine dependence; Z68.31 Body mass index [BMI] 31.0-31.9, adult; Z96.653 Presence of artificial knee joint, bilateral; Z86.14 Personal history of Methicillin resistant Staphylococcus aureus infection; Y83.8 Other surgical procedures as the cause of abnormal reaction of the patient, or of later complication, without mention of misadventure at the time of the procedure | CPT/HCPCS: 97597; 97598 ==

== ENCOUNTER → 2019-09-18 | Outpatient (CLI) | payer MEDICAID | END | disposition home or self-care (01) | LOC: WOUND 08:01 | PROVIDERS: ATTEND Internal Medicine | DX: T81.31XD Disruption of external operation (surgical) wound, not elsewhere classified, subsequent encounter (principal); L97.221 Non-pressure chronic ulcer of left calf limited to breakdown of skin; L97.821 Non-pressure chronic ulcer of other part of left lower leg limited to breakdown of skin; I87.2 Venous insufficiency (chronic) (peripheral); I87.301 Chronic venous hypertension (idiopathic) without complications of right lower extremity; G35 Multiple sclerosis; E78.2 Mixed hyperlipidemia; K21.9 Gastro-esophageal reflux disease without esophagitis; M10.9 Gout, unspecified; G47.30 Sleep apnea, unspecified; M46.22 Osteomyelitis of vertebra, cervical region; M46.26 Osteomyelitis of vertebra, lumbar region; M81.0 Age-related osteoporosis without current pathological fracture; E66.9 Obesity, unspecified; F41.9 Anxiety disorder, unspecified; Z87.891 Personal history of nicotine dependence; Z68.31 Body mass index [BMI] 31.0-31.9, adult; Z96.653 Presence of artificial knee joint, bilateral; Z86.14 Personal history of Methicillin resistant Staphylococcus aureus infection; Y83.8 Other surgical procedures as the cause of abnormal reaction of the patient, or of later complication, without mention of misadventure at the time of the procedure | CPT/HCPCS: 97597; 97598 ==

== ENCOUNTER → 2019-10-02 | Outpatient (CLI) | payer MEDICAID | END | disposition home or self-care (01) | LOC: WOUND 08:13 | PROVIDERS: ATTEND Family Medicine | DX: T81.31XD Disruption of external operation (surgical) wound, not elsewhere classified, subsequent encounter (principal); I87.312 Chronic venous hypertension (idiopathic) with ulcer of left lower extremity; L97.221 Non-pressure chronic ulcer of left calf limited to breakdown of skin; L97.821 Non-pressure chronic ulcer of other part of left lower leg limited to breakdown of skin; L98.492 Non-pressure chronic ulcer of skin of other sites with fat layer exposed; G35 Multiple sclerosis; E78.2 Mixed hyperlipidemia; K21.9 Gastro-esophageal reflux disease without esophagitis; M10.9 Gout, unspecified; G47.30 Sleep apnea, unspecified; M46.22 Osteomyelitis of vertebra, cervical region; M46.26 Osteomyelitis of vertebra, lumbar region; M81.0 Age-related osteoporosis without current pathological fracture; E66.9 Obesity, unspecified; F41.9 Anxiety disorder, unspecified; Z87.891 Personal history of nicotine dependence; Z68.31 Body mass index [BMI] 31.0-31.9, adult; Z96.653 Presence of artificial knee joint, bilateral; Z86.14 Personal history of Methicillin resistant Staphylococcus aureus infection; Y83.8 Other surgical procedures as the cause of abnormal reaction of the patient, or of later complication, without mention of misadventure at the time of the procedure | CPT/HCPCS: 11042; 97597 ==

== ENCOUNTER → 2019-10-09 | Outpatient (CLI) | payer MEDICAID | END | disposition home or self-care (01) | LOC: WOUND 08:00 | PROVIDERS: ATTEND Family Medicine | DX: T81.31XD Disruption of external operation (surgical) wound, not elsewhere classified, subsequent encounter (principal); I87.312 Chronic venous hypertension (idiopathic) with ulcer of left lower extremity; L97.821 Non-pressure chronic ulcer of other part of left lower leg limited to breakdown of skin; G35 Multiple sclerosis; E78.2 Mixed hyperlipidemia; K21.9 Gastro-esophageal reflux disease without esophagitis; M10.9 Gout, unspecified; G47.30 Sleep apnea, unspecified; M46.22 Osteomyelitis of vertebra, cervical region; M46.26 Osteomyelitis of vertebra, lumbar region; M81.0 Age-related osteoporosis without current pathological fracture; E66.9 Obesity, unspecified; F41.9 Anxiety disorder, unspecified; Z87.891 Personal history of nicotine dependence; Z68.31 Body mass index [BMI] 31.0-31.9, adult; Z96.653 Presence of artificial knee joint, bilateral; Z86.14 Personal history of Methicillin resistant Staphylococcus aureus infection; Y83.8 Other surgical procedures as the cause of abnormal reaction of the patient, or of later complication, without mention of misadventure at the time of the procedure | CPT/HCPCS: 97597 ==

== ENCOUNTER → 2019-10-23 | Outpatient (CLI) | payer MEDICAID | END | disposition home or self-care (01) | LOC: WOUND 07:54 | PROVIDERS: ATTEND Family Medicine | DX: T81.31XD Disruption of external operation (surgical) wound, not elsewhere classified, subsequent encounter (principal); I87.313 Chronic venous hypertension (idiopathic) with ulcer of bilateral lower extremity; L97.811 Non-pressure chronic ulcer of other part of right lower leg limited to breakdown of skin; L97.821 Non-pressure chronic ulcer of other part of left lower leg limited to breakdown of skin; G35 Multiple sclerosis; E78.2 Mixed hyperlipidemia; K21.9 Gastro-esophageal reflux disease without esophagitis; M10.9 Gout, unspecified; G47.30 Sleep apnea, unspecified; M46.22 Osteomyelitis of vertebra, cervical region; M46.26 Osteomyelitis of vertebra, lumbar region; M81.0 Age-related osteoporosis without current pathological fracture; E66.9 Obesity, unspecified; F41.9 Anxiety disorder, unspecified; Z87.891 Personal history of nicotine dependence; Z68.31 Body mass index [BMI] 31.0-31.9, adult; Z96.653 Presence of artificial knee joint, bilateral; Z86.14 Personal history of Methicillin resistant Staphylococcus aureus infection; Y83.8 Other surgical procedures as the cause of abnormal reaction of the patient, or of later complication, without mention of misadventure at the time of the procedure | CPT/HCPCS: 97597 ==

== ENCOUNTER 2019-11-06 07:48 | Outpatient (CLI) | payer MEDICAID | END 2019-11-06 23:59 | disposition home or self-care (01) | LOC: WOUND 07:48 | PROVIDERS: ATTEND Family Medicine | DX: T81.31XD Disruption of external operation (surgical) wound, not elsewhere classified, subsequent encounter (principal); I87.313 Chronic venous hypertension (idiopathic) with ulcer of bilateral lower extremity; L97.821 Non-pressure chronic ulcer of other part of left lower leg limited to breakdown of skin; L97.811 Non-pressure chronic ulcer of other part of right lower leg limited to breakdown of skin; G35 Multiple sclerosis; E78.2 Mixed hyperlipidemia; E78.5 Hyperlipidemia, unspecified; K21.9 Gastro-esophageal reflux disease without esophagitis; M54.9 Dorsalgia, unspecified; M10.9 Gout, unspecified; G47.00 Insomnia, unspecified; M81.0 Age-related osteoporosis without current pathological fracture; M46.22 Osteomyelitis of vertebra, cervical region; E66.9 Obesity, unspecified; M46.26 Osteomyelitis of vertebra, lumbar region; F41.9 Anxiety disorder, unspecified; Z68.31 Body mass index [BMI] 31.0-31.9, adult; Z87.891 Personal history of nicotine dependence; Z96.653 Presence of artificial knee joint, bilateral; Y83.8 Other surgical procedures as the cause of abnormal reaction of the patient, or of later complication, without mention of misadventure at the time of the procedure | CPT/HCPCS: 97597; 97598 ==

== ENCOUNTER → 2019-11-11 | Outpatient (CLI) | payer MEDICAID | END | disposition home or self-care (01) | LOC: CVU 06:28 | PROVIDERS: ATTEND Internal Medicine Cardiovascular Disease | DX: I10 Essential (primary) hypertension (principal) | CPT/HCPCS: 93306 ==

== ENCOUNTER → 2019-11-13 | Outpatient (CLI) | payer MEDICAID | END | disposition home or self-care (01) | LOC: WOUND 07:42 | PROVIDERS: ATTEND Family Medicine | DX: T81.31XD Disruption of external operation (surgical) wound, not elsewhere classified, subsequent encounter (principal); I87.313 Chronic venous hypertension (idiopathic) with ulcer of bilateral lower extremity; L97.821 Non-pressure chronic ulcer of other part of left lower leg limited to breakdown of skin; L97.811 Non-pressure chronic ulcer of other part of right lower leg limited to breakdown of skin; G35 Multiple sclerosis; E78.2 Mixed hyperlipidemia; E78.5 Hyperlipidemia, unspecified; K21.9 Gastro-esophageal reflux disease without esophagitis; M54.9 Dorsalgia, unspecified; M10.9 Gout, unspecified; G47.00 Insomnia, unspecified; M81.0 Age-related osteoporosis without current pathological fracture; M46.22 Osteomyelitis of vertebra, cervical region; E66.9 Obesity, unspecified; M46.26 Osteomyelitis of vertebra, lumbar region; F41.9 Anxiety disorder, unspecified; Z68.31 Body mass index [BMI] 31.0-31.9, adult; Z87.891 Personal history of nicotine dependence; Z96.653 Presence of artificial knee joint, bilateral; Y83.8 Other surgical procedures as the cause of abnormal reaction of the patient, or of later complication, without mention of misadventure at the time of the procedure | CPT/HCPCS: 97597 ==

== ENCOUNTER 2019-11-27 08:00 | Outpatient (CLI) | payer MEDICAID | END 2019-11-27 23:59 | disposition home or self-care (01) | LOC: WOUND 08:00 | PROVIDERS: ATTEND Family Medicine | DX: T81.31XD Disruption of external operation (surgical) wound, not elsewhere classified, subsequent encounter (principal); I87.313 Chronic venous hypertension (idiopathic) with ulcer of bilateral lower extremity; L97.821 Non-pressure chronic ulcer of other part of left lower leg limited to breakdown of skin; L97.811 Non-pressure chronic ulcer of other part of right lower leg limited to breakdown of skin; G35 Multiple sclerosis; E78.5 Hyperlipidemia, unspecified; E78.2 Mixed hyperlipidemia; K21.9 Gastro-esophageal reflux disease without esophagitis; M54.9 Dorsalgia, unspecified; M10.9 Gout, unspecified; G47.00 Insomnia, unspecified; M81.0 Age-related osteoporosis without current pathological fracture; M46.22 Osteomyelitis of vertebra, cervical region; E66.9 Obesity, unspecified; M46.26 Osteomyelitis of vertebra, lumbar region; F41.9 Anxiety disorder, unspecified; Z68.31 Body mass index [BMI] 31.0-31.9, adult; Z87.891 Personal history of nicotine dependence; Z96.653 Presence of artificial knee joint, bilateral; Y83.8 Other surgical procedures as the cause of abnormal reaction of the patient, or of later complication, without mention of misadventure at the time of the procedure | CPT/HCPCS: 29581; 97597; 97598 ==

== ENCOUNTER → 2019-12-11 | Outpatient (CLI) | payer MEDICAID | END | disposition home or self-care (01) | LOC: WOUND 07:42 | PROVIDERS: ATTEND Family Medicine | DX: T81.31XD Disruption of external operation (surgical) wound, not elsewhere classified, subsequent encounter (principal); I87.312 Chronic venous hypertension (idiopathic) with ulcer of left lower extremity; L97.822 Non-pressure chronic ulcer of other part of left lower leg with fat layer exposed; I87.301 Chronic venous hypertension (idiopathic) without complications of right lower extremity; G35 Multiple sclerosis; E78.2 Mixed hyperlipidemia; E78.5 Hyperlipidemia, unspecified; K21.9 Gastro-esophageal reflux disease without esophagitis; G89.29 Other chronic pain; M54.9 Dorsalgia, unspecified; M46.22 Osteomyelitis of vertebra, cervical region; M46.26 Osteomyelitis of vertebra, lumbar region; M10.9 Gout, unspecified; G47.00 Insomnia, unspecified; G47.30 Sleep apnea, unspecified; M81.0 Age-related osteoporosis without current pathological fracture; F41.9 Anxiety disorder, unspecified; Z68.31 Body mass index [BMI] 31.0-31.9, adult; Z96.653 Presence of artificial knee joint, bilateral; Z86.14 Personal history of Methicillin resistant Staphylococcus aureus infection; Y83.8 Other surgical procedures as the cause of abnormal reaction of the patient, or of later complication, without mention of misadventure at the time of the procedure | CPT/HCPCS: 97597 ==

== ENCOUNTER 2019-12-25 08:17 | Outpatient (CLI) | payer MEDICAID | END 2019-12-25 23:59 | disposition home or self-care (01) | LOC: WOUND 08:17 | PROVIDERS: ATTEND Family Medicine | DX: T81.31XD Disruption of external operation (surgical) wound, not elsewhere classified, subsequent encounter (principal); I87.312 Chronic venous hypertension (idiopathic) with ulcer of left lower extremity; L97.822 Non-pressure chronic ulcer of other part of left lower leg with fat layer exposed; I87.301 Chronic venous hypertension (idiopathic) without complications of right lower extremity; S81.801A Unspecified open wound, right lower leg, initial encounter; G35 Multiple sclerosis; E78.2 Mixed hyperlipidemia; E78.5 Hyperlipidemia, unspecified; K21.9 Gastro-esophageal reflux disease without esophagitis; G89.29 Other chronic pain; M54.9 Dorsalgia, unspecified; M46.22 Osteomyelitis of vertebra, cervical region; M46.26 Osteomyelitis of vertebra, lumbar region; M10.9 Gout, unspecified; G47.00 Insomnia, unspecified; G47.30 Sleep apnea, unspecified; M81.0 Age-related osteoporosis without current pathological fracture; F41.9 Anxiety disorder, unspecified; E66.9 Obesity, unspecified; Z68.31 Body mass index [BMI] 31.0-31.9, adult; Z96.653 Presence of artificial knee joint, bilateral; Z87.891 Personal history of nicotine dependence; Z86.14 Personal history of Methicillin resistant Staphylococcus aureus infection; Y83.8 Other surgical procedures as the cause of abnormal reaction of the patient, or of later complication, without mention of misadventure at the time of the procedure; X58.XXXA Exposure to other specified factors, initial encounter; Y93.89 Activity, other specified; Y92.89 Other specified places as the place of occurrence of the external cause; Y99.8 Other external cause status | CPT/HCPCS: 29581; 97597 ==

== ENCOUNTER → 2020-01-08 | Outpatient (CLI) | payer MEDICAID | END | disposition home or self-care (01) | LOC: WOUND 07:40 | PROVIDERS: ATTEND Family Medicine | DX: T81.31XD Disruption of external operation (surgical) wound, not elsewhere classified, subsequent encounter (principal); I87.312 Chronic venous hypertension (idiopathic) with ulcer of left lower extremity; L97.822 Non-pressure chronic ulcer of other part of left lower leg with fat layer exposed; I87.301 Chronic venous hypertension (idiopathic) without complications of right lower extremity; S81.801D Unspecified open wound, right lower leg, subsequent encounter; R21 Rash and other nonspecific skin eruption; G35 Multiple sclerosis; E78.2 Mixed hyperlipidemia; K21.9 Gastro-esophageal reflux disease without esophagitis; G89.29 Other chronic pain; M54.9 Dorsalgia, unspecified; M46.22 Osteomyelitis of vertebra, cervical region; M46.26 Osteomyelitis of vertebra, lumbar region; M10.9 Gout, unspecified; G47.00 Insomnia, unspecified; G47.30 Sleep apnea, unspecified; M81.0 Age-related osteoporosis without current pathological fracture; F41.9 Anxiety disorder, unspecified; E66.9 Obesity, unspecified; Z68.31 Body mass index [BMI] 31.0-31.9, adult; Z96.653 Presence of artificial knee joint, bilateral; Z87.891 Personal history of nicotine dependence; Z86.14 Personal history of Methicillin resistant Staphylococcus aureus infection; Y83.8 Other surgical procedures as the cause of abnormal reaction of the patient, or of later complication, without mention of misadventure at the time of the procedure; X58.XXXD Exposure to other specified factors, subsequent encounter | CPT/HCPCS: 97597; 97598 ==

== ENCOUNTER 2020-01-22 07:46 | Outpatient (CLI) | payer MEDICAID | END 2020-01-22 23:59 | disposition home or self-care (01) | LOC: WOUND 07:46 | PROVIDERS: ATTEND Family Medicine | DX: T81.31XD Disruption of external operation (surgical) wound, not elsewhere classified, subsequent encounter (principal); I87.312 Chronic venous hypertension (idiopathic) with ulcer of left lower extremity; L97.822 Non-pressure chronic ulcer of other part of left lower leg with fat layer exposed; I87.391 Chronic venous hypertension (idiopathic) with other complications of right lower extremity; S91.101A Unspecified open wound of right great toe without damage to nail, initial encounter; G35 Multiple sclerosis; M46.22 Osteomyelitis of vertebra, cervical region; M46.26 Osteomyelitis of vertebra, lumbar region; E78.2 Mixed hyperlipidemia; K21.9 Gastro-esophageal reflux disease without esophagitis; M10.9 Gout, unspecified; M81.0 Age-related osteoporosis without current pathological fracture; G89.29 Other chronic pain; E78.5 Hyperlipidemia, unspecified; G47.00 Insomnia, unspecified; G47.30 Sleep apnea, unspecified; F41.9 Anxiety disorder, unspecified; Z87.891 Personal history of nicotine dependence; Z86.14 Personal history of Methicillin resistant Staphylococcus aureus infection; X58.XXXA Exposure to other specified factors, initial encounter; Y93.89 Activity, other specified; Y92.89 Other specified places as the place of occurrence of the external cause; Y99.8 Other external cause status; Y83.8 Other surgical procedures as the cause of abnormal reaction of the patient, or of later complication, without mention of misadventure at the time of the procedure | CPT/HCPCS: 29581; 97597 ==

== ENCOUNTER 2020-02-12 07:43 | Outpatient (CLI) | payer MEDICAID | END 2020-02-12 23:59 | disposition home or self-care (01) | LOC: WOUND 07:43 | PROVIDERS: ATTEND Family Medicine | DX: T81.31XD Disruption of external operation (surgical) wound, not elsewhere classified, subsequent encounter (principal); I87.312 Chronic venous hypertension (idiopathic) with ulcer of left lower extremity; L97.822 Non-pressure chronic ulcer of other part of left lower leg with fat layer exposed; S81.801D Unspecified open wound, right lower leg, subsequent encounter; I87.301 Chronic venous hypertension (idiopathic) without complications of right lower extremity; G35 Multiple sclerosis; E78.2 Mixed hyperlipidemia; K21.9 Gastro-esophageal reflux disease without esophagitis; M10.9 Gout, unspecified; G47.00 Insomnia, unspecified; M81.0 Age-related osteoporosis without current pathological fracture; M46.22 Osteomyelitis of vertebra, cervical region; M46.26 Osteomyelitis of vertebra, lumbar region; G89.29 Other chronic pain; G47.30 Sleep apnea, unspecified; E66.9 Obesity, unspecified; F41.9 Anxiety disorder, unspecified; Z96.653 Presence of artificial knee joint, bilateral; Z68.31 Body mass index [BMI] 31.0-31.9, adult; Z86.14 Personal history of Methicillin resistant Staphylococcus aureus infection; Z87.891 Personal history of nicotine dependence; X58.XXXD Exposure to other specified factors, subsequent encounter; Y83.8 Other surgical procedures as the cause of abnormal reaction of the patient, or of later complication, without mention of misadventure at the time of the procedure | CPT/HCPCS: 29581; 97597 ==

== ENCOUNTER 2020-02-26 08:08 | Outpatient (CLI) | payer MEDICAID ==
[~2020-02-26 08:08] MED LIST changes: -MONT10TA11 PO; +MONT10TA96 PO
== END 2020-02-26 23:59 | disposition home or self-care (01) ==
LOC: WOUND 08:08
PROVIDERS: ATTEND Internal Medicine
DX: T81.31XD Disruption of external operation (surgical) wound, not elsewhere classified, subsequent encounter (principal); I87.313 Chronic venous hypertension (idiopathic) with ulcer of bilateral lower extremity; L97.822 Non-pressure chronic ulcer of other part of left lower leg with fat layer exposed; L97.811 Non-pressure chronic ulcer of other part of right lower leg limited to breakdown of skin; S81.011A Laceration without foreign body, right knee, initial encounter; G35 Multiple sclerosis; E78.2 Mixed hyperlipidemia; M81.0 Age-related osteoporosis without current pathological fracture; M46.22 Osteomyelitis of vertebra, cervical region; M46.26 Osteomyelitis of vertebra, lumbar region; G89.29 Other chronic pain; G47.30 Sleep apnea, unspecified; K21.9 Gastro-esophageal reflux disease without esophagitis; F41.9 Anxiety disorder, unspecified; M10.9 Gout, unspecified; G47.00 Insomnia, unspecified; E66.9 Obesity, unspecified; Z68.31 Body mass index [BMI] 31.0-31.9, adult; Z96.653 Presence of artificial knee joint, bilateral; Z86.14 Personal history of Methicillin resistant Staphylococcus aureus infection; Z87.891 Personal history of nicotine dependence; X58.XXXA Exposure to other specified factors, initial encounter; Y93.89 Activity, other specified; Y92.89 Other specified places as the place of occurrence of the external cause; Y99.8 Other external cause status; Y83.8 Other surgical procedures as the cause of abnormal reaction of the patient, or of later complication, without mention of misadventure at the time of the procedure
CPT/HCPCS: 29581; 97597

== ENCOUNTER → 2020-04-08 | Outpatient (CLI) | payer MEDICAID | END | disposition home or self-care (01) | LOC: WOUND 07:31 | PROVIDERS: ATTEND Internal Medicine | DX: T81.31XD Disruption of external operation (surgical) wound, not elsewhere classified, subsequent encounter (principal); I87.313 Chronic venous hypertension (idiopathic) with ulcer of bilateral lower extremity; L97.822 Non-pressure chronic ulcer of other part of left lower leg with fat layer exposed; L97.811 Non-pressure chronic ulcer of other part of right lower leg limited to breakdown of skin; S81.011D Laceration without foreign body, right knee, subsequent encounter; G35 Multiple sclerosis; E78.2 Mixed hyperlipidemia; M81.0 Age-related osteoporosis without current pathological fracture; M46.22 Osteomyelitis of vertebra, cervical region; M46.26 Osteomyelitis of vertebra, lumbar region; G89.29 Other chronic pain; G47.30 Sleep apnea, unspecified; K21.9 Gastro-esophageal reflux disease without esophagitis; F41.9 Anxiety disorder, unspecified; M10.9 Gout, unspecified; G47.00 Insomnia, unspecified; E66.9 Obesity, unspecified; Z68.31 Body mass index [BMI] 31.0-31.9, adult; Z96.653 Presence of artificial knee joint, bilateral; Z86.14 Personal history of Methicillin resistant Staphylococcus aureus infection; Z87.891 Personal history of nicotine dependence; X58.XXXD Exposure to other specified factors, subsequent encounter; Y83.8 Other surgical procedures as the cause of abnormal reaction of the patient, or of later complication, without mention of misadventure at the time of the procedure | CPT/HCPCS: 87070; 87075; 87077; 87205; 97597 ==

== ENCOUNTER 2020-04-12 09:38 | Inpatient (IN) | payer MEDICAID ==
[~2020-04-12] VITALS: Ht 190.5 cm; Wt 127.5 kg
[2020-04-12] MEDS ORDERED: SODIUM CHLORIDE 0.9% 1,000ML IV ONE (10:30)
--- NOTE | 2020-04-12 10:56 | NUR ---
PIV PLACED, TOLERATES WELL, FLUIDS STARTED PER MD ORDER.
[2020-04-12 11:06] LABS: BASOPHILS % (AUTO) 1 % (0-1); EOSINOPHILS % (AUTO) 6 % (1-7); LYMPHOCYTES % (AUTO) 16 % (22-44); MD NO; MEAN CORPUSCULAR HEMOGLOBIN 30.2 pg (27.5-34.5); MEAN CORPUSCULAR HGB CONC 33.8 g/dL (33.2-36.2); MONOCYTES % (AUTO) 13 % (2-9); NEUTROPHILS % (AUTO) 64 % (42-75); PLATELET COUNT 329 x10^3/uL (130-400); RED BLOOD COUNT 4.94 x10^6/uL (4.38-5.82); RED CELL DISTRIBUTION WIDTH 13.1 % (9.4-14.8)
[2020-04-12] MEDS ORDERED: HYDROmorphone 1 MG/ML, 1ML INJ ONE (11:13)
[2020-04-12 11:15] LABS: ALBUMIN 3.5 g/dL (3.4-5.0); ANION GAP 4 mmol/L (5-15); CALCIUM 9.1 mg/dL (8.5-10.1); CHLORIDE 106 mmol/L (98-107); CREATININE 1.01 mg/dL (0.7-1.3)
[2020-04-12] MEDS ORDERED: HYDROmorphone 2 MG/ML, 1ML IVPush PRN (11:30)
--- NOTE | 2020-04-12 11:30 | NUR ---
Pt medicated for pain with improvement noted, vitals remain stable, IV fluids infusing. Pt self caths, clear yellow urine noted. Waiting for room assignment.
[2020-04-12] MEDS ORDERED: VANCOMYCIN PER PHARMACY MC PRN (12:00)
[2020-04-12 12:35] LABS: HCT (SEDRATE) 38.7 % (39.2-51.8)
[2020-04-12] MEDS ORDERED: CIPROFLOXACIN/PMX 400MG/200ML 200 ML ONE (12:41)
[2020-04-12] MEDS: CIPROFLOXACIN/PMX 400MG/200ML 200 ML IV SCH ×2 (12:48→23:55)
[2020-04-12] MEDS ORDERED: morphine SULFATE 10 MG/ML, 1ML IVPush PRN (13:00)
[2020-04-12] MEDS ORDERED: GUAIFENESIN/DM 200-20MG, 10ML UDC PO PRN (13:00)
[2020-04-12] MEDS ORDERED: ONDANSETRON 2MG/ML, 2ML IVPush PRN (13:00)
[2020-04-12] MEDS ORDERED: ENALAPRILAT 1.25 MG/ML, 2ML IVPush PRN (13:00)
[2020-04-12] MEDS ORDERED: ACETAMINOPHEN 325 MG TABLET PO PRN (13:00)
[2020-04-12] MEDS ORDERED: DOCUSATE 100 MG CAPSULE PO PRN (13:00)
--- NOTE | 2020-04-12 13:00 | NUR ---
IV ABX INFUSING PER MD ORDERS, BLOOD CULTURES COMPLETE, PT STATES PAIN TOLERABLE AND AT BASELINE. MED REC COMPLETE. VITALS STABLE, WAITING FOR ROOM ASSIGNMENT.
--- NOTE | 2020-04-12 13:56 | NUR ---
ATTEMPT REPORT X 1, REQUEST CALL BACK FOR REPORT
[2020-04-12 14:15] VITALS: BP 184/78
[2020-04-12] MEDS ORDERED: PHARMACOKINETIC MONITORING MC PRN (14:30)
[2020-04-12] MEDS ORDERED: VANCOMYCIN 2,500 MG in SODIUM CHLORIDE 0.9% 500 ML IV ONE (14:30)
[2020-04-12] MEDS: SODIUM CHLORIDE 0.9% 1,000 ML IV SCH (15:20)
[2020-04-12] MEDS: ENOXAPARIN 30 MG/0.3 ML SQ SCH (15:21)
[2020-04-12] MEDS: HYDROmorphone 1 MG/ML, 1ML INJ IV PRN ×4 (15:22→23:56)
[2020-04-12] MEDS: LABETALOL 5MG/ML, 20ML IVPush PRN (15:22)
[2020-04-12] MEDS ORDERED: OXYcodone ORAL.CONC 20 MG/ML PO SCH (16:00)
[2020-04-12] MEDS: OXYcodone ORAL.CONC 20 MG/ML PO SCH ×2 (16:52→21:00)
[2020-04-12 17:00] VITALS: BP 154/88
[2020-04-12 19:26] VITALS: BP 136/70
[2020-04-12] MEDS: LACTULOSE 10 GM/15 ML UDC PO SCH (20:05)
[2020-04-12] MEDS ORDERED: OXYcodone 5 MG/5 ML ORAL.SOL UDC ONE ×2 (21:06→21:07)
[2020-04-13 01:14] VITALS: BP 138/68
[2020-04-13] MEDS: HYDROmorphone 1 MG/ML, 1ML INJ IV PRN ×7 (02:47→22:53)
[2020-04-13] MEDS: ENOXAPARIN 30 MG/0.3 ML SQ SCH ×2 (02:47→15:34)
[2020-04-13] MEDS: VANCOMYCIN 2,000 MG in SODIUM CHLORIDE 0.9% 500 ML IV SCH ×2 (02:47→15:34)
[2020-04-13] MEDS: OMEPRAZOLE 20 MG CAPSULE.DR PO SCH (05:58)
[2020-04-13 07:17] VITALS: BP 151/85
[2020-04-13 07:39] LABS: BASOPHILS % (AUTO) 1 % (0-1); EOSINOPHILS % (AUTO) 6 % (1-7); LYMPHOCYTES % (AUTO) 15 % (22-44); MEAN CORPUSCULAR HEMOGLOBIN 30.2 pg (27.5-34.5); MEAN CORPUSCULAR HGB CONC 34.2 g/dL (33.2-36.2); MEAN PLATELET VOLUME 7.1 fL (7.4-10.4); MONOCYTES % (AUTO) 11 % (2-9); NEUTROPHILS % (AUTO) 67 % (42-75); PLATELET COUNT 315 x10^3/uL (130-400); RED BLOOD COUNT 4.39 x10^6/uL (4.38-5.82); RED CELL DISTRIBUTION WIDTH 13.1 % (9.4-14.8)
[2020-04-13 07:44] LABS: MD NO
[2020-04-13 07:54] LABS: ANION GAP 6 mmol/L (5-15); CALCIUM 8.6 mg/dL (8.5-10.1); CHLORIDE 112 mmol/L (98-107)
[2020-04-13 07:55] LABS: CREATININE 0.89 mg/dL (0.7-1.3)
[2020-04-13] MEDS: SODIUM CHLORIDE 0.9% 1,000 ML IV SCH ×2 (08:00→20:38)
[2020-04-13] MEDS ORDERED: OXYcodone IR 5MG TABLET ONE ×3 (08:08→20:31)
[2020-04-13] MEDS ORDERED: OXYcodone IR 30 MG TABLET ONE ×2 (08:08→20:31)
[2020-04-13] MEDS: OXYcodone ORAL.CONC 20 MG/ML PO SCH ×3 (08:11→20:37)
[2020-04-13] MEDS: LACTULOSE 10 GM/15 ML UDC PO SCH ×2 (08:15→21:00)
[2020-04-13] MEDS: CIPROFLOXACIN/PMX 400MG/200ML 200 ML IV SCH (12:07)
[2020-04-13 12:52] VITALS: BP 165/77
[2020-04-13] MEDS: MEROPENEM 1 GM in SODIUM CHLORIDE 0.9% 100 ML IV SCH (17:40)
[2020-04-13 19:50] VITALS: BP 160/75
[2020-04-14] MEDS: HYDROmorphone 1 MG/ML, 1ML INJ IV PRN ×6 (02:08→20:14)
[2020-04-14] MEDS: MEROPENEM 1 GM in SODIUM CHLORIDE 0.9% 100 ML IV SCH ×3 (02:21→17:41)
[2020-04-14 02:24] VITALS: BP 136/70
[2020-04-14] MEDS: VANCOMYCIN 2,000 MG in SODIUM CHLORIDE 0.9% 500 ML IV SCH (03:15)
[2020-04-14] MEDS: ENOXAPARIN 30 MG/0.3 ML SQ SCH ×2 (03:15→14:03)
[2020-04-14] MEDS: OMEPRAZOLE 20 MG CAPSULE.DR PO SCH (05:02)
[2020-04-14 07:25] VITALS: BP 161/57
[2020-04-14] MEDS ORDERED: OXYcodone IR 5MG TABLET ONE (07:32)
[2020-04-14 07:35] LABS: BASOPHILS % (AUTO) 1 % (0-1); EOSINOPHILS % (AUTO) 3 % (1-7); LYMPHOCYTES % (AUTO) 13 % (22-44); MEAN CORPUSCULAR HEMOGLOBIN 30.6 pg (27.5-34.5); MONOCYTES % (AUTO) 11 % (2-9); NEUTROPHILS % (AUTO) 73 % (42-75); PLATELET COUNT 355 x10^3/uL (130-400); RED BLOOD COUNT 4.37 x10^6/uL (4.38-5.82)
[2020-04-14] MEDS: OXYcodone ORAL.CONC 20 MG/ML PO SCH (07:36)
[2020-04-14 07:37] LABS: MD NO
[2020-04-14] MEDS: LACTULOSE 10 GM/15 ML UDC PO SCH ×2 (08:15→21:00)
[2020-04-14] MEDS ORDERED: OXYcodone ORAL.CONC 20 MG/ML PO SCH (08:30)
[2020-04-14] MEDS ORDERED: OxyconTIN ER 20 MG TAB.ER ONE ×2 (09:16→22:33)
[2020-04-14] MEDS: OxyconTIN ER 40 MG TAB.ER PO SCH ×3 (09:25→22:36)
[2020-04-14] MEDS: OXYcodone IR 30 MG TABLET PO SCH ×4 (10:16→22:36)
[2020-04-14] MEDS ORDERED: DAPTOMYCIN 750 MG in SODIUM CHLORIDE 0.9% 100 ML IVPB SCH (11:30)
[2020-04-14 13:25] VITALS: BP 165/74
[2020-04-14] MEDS: SODIUM CHLORIDE 0.9% 1,000 ML IV SCH (14:03)
[2020-04-14 19:54] VITALS: BP 148/86
[2020-04-15 00:50] VITALS: BP 170/94
[2020-04-15] MEDS ORDERED: HYDROmorphone 1 MG/ML, 1ML INJ IM PRN (02:45)
[2020-04-15] MEDS: HYDROmorphone 1 MG/ML, 1ML INJ IV PRN ×2 (02:53→06:29)
[2020-04-15] MEDS: MEROPENEM 1 GM in SODIUM CHLORIDE 0.9% 100 ML IV SCH ×3 (02:53→18:32)
[2020-04-15] MEDS: ENOXAPARIN 30 MG/0.3 ML SQ SCH ×2 (02:57→16:47)
[2020-04-15] MEDS: OMEPRAZOLE 20 MG CAPSULE.DR PO SCH (05:59)
[2020-04-15] MEDS: OXYcodone IR 30 MG TABLET PO SCH ×5 (06:00→21:08)
[2020-04-15] MEDS: SODIUM CHLORIDE 0.9% 1,000 ML IV SCH (06:30)
[2020-04-15] MEDS: LABETALOL 5MG/ML, 20ML IVPush PRN ×2 (07:29→12:41)
[2020-04-15] MEDS: LACTULOSE 10 GM/15 ML UDC PO SCH ×2 (07:30→21:00)
[2020-04-15 07:41] VITALS: BP 191/109
[2020-04-15] MEDS ORDERED: OxyconTIN ER 20 MG TAB.ER ONE ×3 (08:20→21:03)
[2020-04-15] MEDS: OxyconTIN ER 40 MG TAB.ER PO SCH ×3 (08:25→21:00)
[2020-04-15] MEDS: HYDROmorphone 2MG TABLET PO PRN ×4 (10:31→23:43)
[2020-04-15 12:40] VITALS: BP 173/106
[2020-04-15] MEDS: METOPROLOL TARTRATE 50 MG TAB PO SCH ×2 (12:41→21:07)
[2020-04-15] MEDS: ALLOPURINOL 100 MG TABLET PO SCH ×2 (12:41→21:08)
[2020-04-15] MEDS: LISINOPRIL 20 MG TABLET PO SCH ×2 (12:41→21:08)
[2020-04-15] MEDS: KETOROLAC 30 MG/1 ML IV PRN ×2 (12:41→23:49)
[2020-04-15] MEDS: DAPTOMYCIN 750 MG in SODIUM CHLORIDE 0.9% 100 ML IVPB SCH (13:04)
[2020-04-15 13:36] VITALS: BP 148/84
[2020-04-15 17:56] LABS: ANION GAP 4 mmol/L (5-15); CALCIUM 8.2 mg/dL (8.5-10.1); CHLORIDE 109 mmol/L (98-107); CREATININE 0.89 mg/dL (0.7-1.3)
[2020-04-15 17:58] LABS: CREATINE KINASE, TOTAL 140 U/L (39-308)
[2020-04-15 18:38] LABS: BASOPHILS % (AUTO) 1 % (0-1); EOSINOPHILS % (AUTO) 6 % (1-7); LYMPHOCYTES % (AUTO) 24 % (22-44); MEAN CORPUSCULAR HEMOGLOBIN 30.2 pg (27.5-34.5); MEAN CORPUSCULAR HGB CONC 34.8 g/dL (33.2-36.2); MEAN PLATELET VOLUME 7.4 fL (7.4-10.4); MONOCYTES % (AUTO) 14 % (2-9); NEUTROPHILS % (AUTO) 57 % (42-75); PLATELET COUNT 424 x10^3/uL (130-400); RED BLOOD COUNT 4.56 x10^6/uL (4.38-5.82); RED CELL DISTRIBUTION WIDTH 13.1 % (9.4-14.8)
[2020-04-15 18:44] LABS: MD NO
[2020-04-15 19:57] VITALS: BP 135/75
[2020-04-15 19:59] VITALS: BP 158/80
[2020-04-16 02:26] VITALS: BP 169/84
[2020-04-16] MEDS: MEROPENEM 1 GM in SODIUM CHLORIDE 0.9% 100 ML IV SCH ×3 (02:41→18:17)
[2020-04-16] MEDS: SODIUM CHLORIDE 0.9% 1,000 ML IV SCH (02:43)
[2020-04-16] MEDS: HYDROmorphone 2MG TABLET PO PRN ×5 (03:51→21:45)
[2020-04-16] MEDS: ENOXAPARIN 30 MG/0.3 ML SQ SCH ×2 (03:51→16:23)
[2020-04-16] MEDS: OMEPRAZOLE 20 MG CAPSULE.DR PO SCH (05:43)
[2020-04-16] MEDS: OXYcodone IR 30 MG TABLET PO SCH ×5 (05:43→20:21)
[2020-04-16] MEDS: KETOROLAC 30 MG/1 ML IV PRN ×2 (07:52→20:21)
[2020-04-16] MEDS ORDERED: HYDROCHLOROTHIAZIDE 12.5 MG CAPSULE PO ONE (08:00)
[2020-04-16 08:10] VITALS: BP 165/95
[2020-04-16] MEDS ORDERED: LISINOPRIL 20 MG TABLET PO SCH (09:00)
[2020-04-16] MEDS: LISINOPRIL 40 MG TABLET PO SCH ×2 (09:00→09:03)
[2020-04-16] MEDS: LACTULOSE 10 GM/15 ML UDC PO SCH ×2 (09:00→21:00)
[2020-04-16] MEDS: ALLOPURINOL 100 MG TABLET PO SCH ×2 (09:03→20:21)
[2020-04-16] MEDS: METOPROLOL TARTRATE 50 MG TAB PO SCH ×2 (09:03→20:21)
[2020-04-16] MEDS ORDERED: OxyconTIN ER 20 MG TAB.ER ONE ×3 (09:15→20:14)
[2020-04-16] MEDS: OxyconTIN ER 40 MG TAB.ER PO SCH ×3 (09:16→20:22)
[2020-04-16] MEDS: DAPTOMYCIN 750 MG in SODIUM CHLORIDE 0.9% 100 ML IVPB SCH (12:35)
[2020-04-16] MEDS ORDERED: POTASSIUM CHLORIDE 20 MEQ TAB.ER.PRT PO ONE (13:30)
[2020-04-16 14:15] VITALS: BP 180/81
[2020-04-16 19:50] VITALS: BP 161/94
[2020-04-17] MEDS ORDERED: OXYcodone IR 30 MG TABLET PO ONE (01:00)
[2020-04-17] MEDS: HYDROmorphone 2MG TABLET PO PRN ×4 (02:45→20:33)
[2020-04-17] MEDS: MEROPENEM 1 GM in SODIUM CHLORIDE 0.9% 100 ML IV SCH ×3 (02:49→18:01)
[2020-04-17 03:48] VITALS: BP 170/81
[2020-04-17] MEDS: OXYcodone IR 30 MG TABLET PO SCH ×5 (05:31→21:45)
[2020-04-17] MEDS: OMEPRAZOLE 20 MG CAPSULE.DR PO SCH (05:31)
[2020-04-17] MEDS: ENOXAPARIN 30 MG/0.3 ML SQ SCH ×2 (05:32→18:01)
[2020-04-17 06:45] LABS: BASOPHILS % (AUTO) 1 % (0-1); EOSINOPHILS % (AUTO) 9 % (1-7); LYMPHOCYTES % (AUTO) 17 % (22-44); MEAN CORPUSCULAR HGB CONC 34.5 g/dL (33.2-36.2); MEAN PLATELET VOLUME 6.7 fL (7.4-10.4); MONOCYTES % (AUTO) 15 % (2-9); NEUTROPHILS % (AUTO) 57 % (42-75); PLATELET COUNT 408 x10^3/uL (130-400); RED BLOOD COUNT 4.52 x10^6/uL (4.38-5.82); RED CELL DISTRIBUTION WIDTH 13.5 % (9.4-14.8)
[2020-04-17 06:48] LABS: ANION GAP 5 mmol/L (5-15); CALCIUM 8.6 mg/dL (8.5-10.1); CHLORIDE 108 mmol/L (98-107); CREATININE 0.82 mg/dL (0.7-1.3)
[2020-04-17 07:27] LABS: MD SCAN
[2020-04-17 07:47] VITALS: BP 158/91
[2020-04-17 07:51] VITALS: BP 169/118
[2020-04-17] MEDS ORDERED: OxyconTIN ER 20 MG TAB.ER ONE ×3 (08:34→20:16)
[2020-04-17] MEDS: METOPROLOL TARTRATE 50 MG TAB PO SCH ×2 (08:39→20:20)
[2020-04-17] MEDS: OxyconTIN ER 40 MG TAB.ER PO SCH ×3 (08:40→20:19)
[2020-04-17] MEDS: ALLOPURINOL 100 MG TABLET PO SCH ×2 (08:41→20:20)
[2020-04-17] MEDS: LISINOPRIL 40 MG TABLET PO SCH (08:41)
[2020-04-17] MEDS: LACTULOSE 10 GM/15 ML UDC PO SCH ×2 (08:41→20:20)
[2020-04-17 10:18] LABS: HCT (SEDRATE) 39.3 % (39.2-51.8)
[2020-04-17] MEDS: DAPTOMYCIN 750 MG in SODIUM CHLORIDE 0.9% 100 ML IVPB SCH (12:05)
[2020-04-17 13:32] VITALS: BP 169/88
[2020-04-17 19:21] VITALS: BP 167/90
[2020-04-17] MEDS: KETOROLAC 30 MG/1 ML IV PRN (20:26)
[2020-04-18] MEDS: HYDROmorphone 2MG TABLET PO PRN ×3 (00:17→12:12)
[2020-04-18 02:07] VITALS: BP 163/97
[2020-04-18] MEDS: KETOROLAC 30 MG/1 ML IV PRN (02:28)
[2020-04-18] MEDS: MEROPENEM 1 GM in SODIUM CHLORIDE 0.9% 100 ML IV SCH ×2 (02:29→09:58)
[2020-04-18 03:01] LABS: ALANINE AMINOTRANSFERASE 51 U/L (12-78); ALBUMIN 2.6 g/dL (3.4-5.0); ANION GAP 5 mmol/L (5-15); CALCIUM 8.2 mg/dL (8.5-10.1); CHLORIDE 108 mmol/L (98-107); CREATININE 0.76 mg/dL (0.7-1.3)
[2020-04-18 03:03] LABS: ALKALINE PHOSPHATASE 74 U/L (45-117); BILIRUBIN,TOTAL 0.3 mg/dL (0.2-1.0); TOTAL PROTEIN 5.4 g/dL (6.4-8.2)
[2020-04-18] MEDS: OXYcodone IR 30 MG TABLET PO SCH ×3 (05:25→14:09)
[2020-04-18] MEDS: ENOXAPARIN 30 MG/0.3 ML SQ SCH (05:25)
[2020-04-18] MEDS: OMEPRAZOLE 20 MG CAPSULE.DR PO SCH (05:25)
[2020-04-18 07:01] VITALS: BP 151/83
[2020-04-18] MEDS ORDERED: OxyconTIN ER 20 MG TAB.ER ONE (08:21)
[2020-04-18] MEDS: ALLOPURINOL 100 MG TABLET PO SCH (08:24)
[2020-04-18] MEDS: LISINOPRIL 40 MG TABLET PO SCH (08:24)
[2020-04-18] MEDS: OxyconTIN ER 40 MG TAB.ER PO SCH (08:24)
[2020-04-18] MEDS: LACTULOSE 10 GM/15 ML UDC PO SCH (08:24)
[2020-04-18] MEDS: METOPROLOL TARTRATE 50 MG TAB PO SCH (08:24)
[2020-04-18] MEDS: DAPTOMYCIN 750 MG in SODIUM CHLORIDE 0.9% 100 ML IVPB SCH (11:55)
[2020-04-18 12:11] LABS: BASOPHILS % (AUTO) 1 % (0-1); EOSINOPHILS % (AUTO) 6 % (1-7); LYMPHOCYTES % (AUTO) 18 % (22-44); MEAN CORPUSCULAR HEMOGLOBIN 30.4 pg (27.5-34.5); MEAN CORPUSCULAR HGB CONC 34.6 g/dL (33.2-36.2); MEAN PLATELET VOLUME 6.9 fL (7.4-10.4); MONOCYTES % (AUTO) 16 % (2-9); NEUTROPHILS % (AUTO) 60 % (42-75); PLATELET COUNT 453 x10^3/uL (130-400); RED BLOOD COUNT 4.59 x10^6/uL (4.38-5.82); RED CELL DISTRIBUTION WIDTH 13.6 % (9.4-14.8)
[2020-04-18 12:12] LABS: MD NO
[2020-04-18 12:22] LABS: C-REACTIVE PROTEIN, QUANT 0.42 mg/dL (0.02-0.49)
[2020-04-18 12:29] LABS: HCT (SEDRATE) 39.9 % (39.2-51.8)
[2020-04-18] MEDS ORDERED: OXYC5SOL8 PO (12:48)
[2020-04-18 13:22] VITALS: BP 171/95
[2020-04-18] MEDS: LABETALOL 5MG/ML, 20ML IVPush PRN (13:32)
[2020-04-18 13:33] VITALS: BP 188/96
[2020-04-18 14:10] VITALS: BP 164/94
[2020-04-18] MEDS ORDERED: NIFE-7 PO (14:27)
[2020-04-18 15:00] VITALS: BP 156/86
== END 2020-04-18 15:18 | disposition home health service (06) | DRG 384 ==
LOC: ED 11:05 → EDIP 11:29 → 4NE 14:12
PROVIDERS: ADMIT Family Medicine; ATTEND Family Medicine
PROC: 02HV33Z Insertion of Infusion Device into Superior Vena Cava, Percutaneous Approach (ICD-10-PCS; principal; 2020-04-15)
PROC: B548ZZA Ultrasonography of Superior Vena Cava, Guidance (ICD-10-PCS; 2020-04-15)
DX: S31.000A Unspecified open wound of lower back and pelvis without penetration into retroperitoneum, initial encounter (principal); E61.1 Iron deficiency; F41.9 Anxiety disorder, unspecified; K43.9 Ventral hernia without obstruction or gangrene; M10.9 Gout, unspecified; E66.9 Obesity, unspecified; G35 Multiple sclerosis; G89.29 Other chronic pain; I10 Essential (primary) hypertension; I25.10 Atherosclerotic heart disease of native coronary artery without angina pectoris; B95.62 Methicillin resistant Staphylococcus aureus infection as the cause of diseases classified elsewhere; K21.9 Gastro-esophageal reflux disease without esophagitis; M54.40 Lumbago with sciatica, unspecified side; M86.9 Osteomyelitis, unspecified; Z82.49 Family history of ischemic heart disease and other diseases of the circulatory system; Z80.7 Family history of other malignant neoplasms of lymphoid, hematopoietic and related tissues; Z86.14 Personal history of Methicillin resistant Staphylococcus aureus infection; Z99.3 Dependence on wheelchair; Z83.6 Family history of other diseases of the respiratory system; Z80.8 Family history of malignant neoplasm of other organs or systems; Z80.9 Family history of malignant neoplasm, unspecified; Z88.8 Allergy status to other drugs, medicaments and biological substances; Z88.5 Allergy status to narcotic agent
CPT/HCPCS: 36415; 36573; 80048; 80053; 82040; 82550; 85025; 85651; 86140; 87040; 96374; 96375; 99285; G0378; J0744; J0878; J1170; J1650; J1885; J2185; J3370; C1751; J7030; J7040

== ENCOUNTER 2020-05-06 08:41 | Outpatient (CLI) | payer MEDICAID ==
[~2020-05-06 08:41] MED LIST changes: +MONT10TA17 PO; -MONT10TA96 PO; +NIFE-7 PO; +OXYC5SOL8 PO
== END 2020-05-06 23:59 | disposition home or self-care (01) ==
LOC: WOUND 08:41
PROVIDERS: ATTEND Internal Medicine
DX: T81.31XD Disruption of external operation (surgical) wound, not elsewhere classified, subsequent encounter (principal); I87.313 Chronic venous hypertension (idiopathic) with ulcer of bilateral lower extremity; L97.821 Non-pressure chronic ulcer of other part of left lower leg limited to breakdown of skin; L97.811 Non-pressure chronic ulcer of other part of right lower leg limited to breakdown of skin; S81.011D Laceration without foreign body, right knee, subsequent encounter; G35 Multiple sclerosis; E78.2 Mixed hyperlipidemia; M81.0 Age-related osteoporosis without current pathological fracture; M46.22 Osteomyelitis of vertebra, cervical region; M46.26 Osteomyelitis of vertebra, lumbar region; G89.29 Other chronic pain; G47.30 Sleep apnea, unspecified; K21.9 Gastro-esophageal reflux disease without esophagitis; F41.9 Anxiety disorder, unspecified; M10.9 Gout, unspecified; G47.00 Insomnia, unspecified; E66.9 Obesity, unspecified; Z68.31 Body mass index [BMI] 31.0-31.9, adult; Z96.653 Presence of artificial knee joint, bilateral; Z86.14 Personal history of Methicillin resistant Staphylococcus aureus infection; Z87.891 Personal history of nicotine dependence; Z88.5 Allergy status to narcotic agent; Z88.8 Allergy status to other drugs, medicaments and biological substances; X58.XXXD Exposure to other specified factors, subsequent encounter; Y83.8 Other surgical procedures as the cause of abnormal reaction of the patient, or of later complication, without mention of misadventure at the time of the procedure
CPT/HCPCS: 97597

== ENCOUNTER → 2020-05-13 | Outpatient (CLI) | payer MEDICAID | END | disposition home or self-care (01) | LOC: WOUND 07:56 | PROVIDERS: ATTEND Internal Medicine | DX: T81.31XD Disruption of external operation (surgical) wound, not elsewhere classified, subsequent encounter (principal); I87.312 Chronic venous hypertension (idiopathic) with ulcer of left lower extremity; L97.821 Non-pressure chronic ulcer of other part of left lower leg limited to breakdown of skin; I87.301 Chronic venous hypertension (idiopathic) without complications of right lower extremity; M46.22 Osteomyelitis of vertebra, cervical region; M46.26 Osteomyelitis of vertebra, lumbar region; G35 Multiple sclerosis; E78.2 Mixed hyperlipidemia; K21.9 Gastro-esophageal reflux disease without esophagitis; I25.10 Atherosclerotic heart disease of native coronary artery without angina pectoris; M10.9 Gout, unspecified; M81.0 Age-related osteoporosis without current pathological fracture; E66.9 Obesity, unspecified; G47.00 Insomnia, unspecified; G47.30 Sleep apnea, unspecified; F41.9 Anxiety disorder, unspecified; Z68.31 Body mass index [BMI] 31.0-31.9, adult; Z87.891 Personal history of nicotine dependence; Z96.653 Presence of artificial knee joint, bilateral; Y83.8 Other surgical procedures as the cause of abnormal reaction of the patient, or of later complication, without mention of misadventure at the time of the procedure | CPT/HCPCS: 97597 ==

== ENCOUNTER 2020-05-20 07:55 | Outpatient (CLI) | payer MEDICAID | END 2020-05-20 23:59 | disposition home or self-care (01) | LOC: WOUND 07:55 | PROVIDERS: ATTEND Internal Medicine | DX: T81.31XD Disruption of external operation (surgical) wound, not elsewhere classified, subsequent encounter (principal); I87.312 Chronic venous hypertension (idiopathic) with ulcer of left lower extremity; L97.821 Non-pressure chronic ulcer of other part of left lower leg limited to breakdown of skin; I87.301 Chronic venous hypertension (idiopathic) without complications of right lower extremity; G35 Multiple sclerosis; E78.2 Mixed hyperlipidemia; M46.22 Osteomyelitis of vertebra, cervical region; M46.26 Osteomyelitis of vertebra, lumbar region; K21.9 Gastro-esophageal reflux disease without esophagitis; I25.10 Atherosclerotic heart disease of native coronary artery without angina pectoris; M10.9 Gout, unspecified; M81.0 Age-related osteoporosis without current pathological fracture; G47.00 Insomnia, unspecified; G47.30 Sleep apnea, unspecified; F41.9 Anxiety disorder, unspecified; M48.061 Spinal stenosis, lumbar region without neurogenic claudication; J45.909 Unspecified asthma, uncomplicated; F11.20 Opioid dependence, uncomplicated; E66.9 Obesity, unspecified; Z68.31 Body mass index [BMI] 31.0-31.9, adult; Z87.891 Personal history of nicotine dependence; Z96.653 Presence of artificial knee joint, bilateral; Z86.14 Personal history of Methicillin resistant Staphylococcus aureus infection; Z88.5 Allergy status to narcotic agent; Z88.6 Allergy status to analgesic agent; Z88.8 Allergy status to other drugs, medicaments and biological substances; Y83.8 Other surgical procedures as the cause of abnormal reaction of the patient, or of later complication, without mention of misadventure at the time of the procedure | CPT/HCPCS: 97597 ==

== ENCOUNTER 2020-05-20 08:28 | Inpatient (IN) | payer MEDICAID ==
[~2020-05-20] VITALS: Ht 190.5 cm; Wt 126.4 kg
--- NOTE | 2020-05-20 08:39 | NUR ---
PT TO ROOM VIA OWN MOTORIZED WHEELCHAIR (HX MULTIPLE SCLEROSIS, WHEELCHAIR-BOUND).
--- NOTE | 2020-05-20 08:54 | NUR ---
PT IS A 54M SENT FROM WOUND CARE WITH CONCERNS OF A RECURRANT PSEUDOMONAS INFECTION IN HIS BACK. HE JUST COMPLETED A COURSE OF DAPTOMYCIN AND MIRAPENIN WITH HOME HEALTH LAST WEEK. HIS PICC LINE WAS ALSO REMOVED LAST WEEK. PROVIDER AT BEDSIDE FOR EVAL. PT WITH HX OF MS AND MRSA ALSO. CALL LIGHT WITHIN REACH. BP AND SP02 MONITORS IN PLACE.
[2020-05-20] MEDS ORDERED: SODIUM CHLORIDE FLUSH 10ML SYR IVF ONE (09:00)
[2020-05-20] MEDS ORDERED: ONDANSETRON 2MG/ML, 2ML IVPush ONE (09:00)
[2020-05-20] MEDS ORDERED: ONDANSETRON 2MG/ML, 2ML ONE (09:09)
[2020-05-20] MEDS ORDERED: HYDROmorphone 1 MG/ML, 1ML INJ ONE ×2 (09:09→09:58)
[2020-05-20] MEDS: HYDROmorphone 2 MG/ML, 1ML IVPush PRN (09:14)
[2020-05-20 09:29] LABS: HCT (SEDRATE) 43.3 % (39.2-51.8)
[2020-05-20] MEDS ORDERED: MEROPENEM 1 GM in SODIUM CHLORIDE 0.9% 100 ML IV ONE (09:30)
[2020-05-20 09:31] LABS: BASOPHILS % (AUTO) 1 % (0-1); EOSINOPHILS % (AUTO) 1 % (1-7); LYMPHOCYTES % (AUTO) 11 % (22-44); MD NO; MEAN CORPUSCULAR HEMOGLOBIN 30.2 pg (27.5-34.5); MEAN CORPUSCULAR HGB CONC 34.5 g/dL (33.2-36.2); MEAN PLATELET VOLUME 6.8 fL (7.4-10.4); MONOCYTES % (AUTO) 9 % (2-9); NEUTROPHILS % (AUTO) 79 % (42-75); PLATELET COUNT 358 x10^3/uL (130-400); RED CELL DISTRIBUTION WIDTH 12.8 % (9.4-14.8)
[2020-05-20 09:41] LABS: ALANINE AMINOTRANSFERASE 32 U/L (12-78); ALBUMIN 3.6 g/dL (3.4-5.0); ANION GAP 9 mmol/L (5-15); C-REACTIVE PROTEIN, QUANT 0.26 mg/dL (0.02-0.49); CALCIUM 9.4 mg/dL (8.5-10.1); CHLORIDE 112 mmol/L (98-107); CREATININE 0.82 mg/dL (0.7-1.3)
[2020-05-20 09:44] LABS: ALKALINE PHOSPHATASE 88 U/L (45-117); BILIRUBIN,TOTAL 0.6 mg/dL (0.2-1.0); TOTAL PROTEIN 6.6 g/dL (6.4-8.2)
--- NOTE | 2020-05-20 10:03 | NUR ---
PT HAS NOW HAD A TOTAL OF 2MG DILAUDID. PT IS RESTING COMFORTABLY ON HIS CELL PHONE. CALL LIGHT WITHIN REACH. NO FURTHER NEEDS.
--- NOTE | 2020-05-20 10:05 | NUR ---
ID PAGED FOR DR. SHAW AND LONDON ROBERTSON.
--- NOTE | 2020-05-20 10:43 | NUR ---
RECORDS REQUESTED FROM [facility] INCLUDING CULTURES.
--- NOTE | 2020-05-20 11:15 | NUR ---
report to Shakira MAYS.
--- NOTE | 2020-05-20 11:34 | NUR ---
TP RN NOTE: admitting hospitalist inquired regarding pt's previous admit with [facility] hospitalists. Pt confirmed with MD Mejia that he does not see [facility] outpatient and does not want a repeat admit with [facility] medicine. Admitting MD Dumont notified, MD Dumont confirms he will admit the patient, MD Dumont ok'd pt to be transported to medical floor at this time.
[2020-05-20] MEDS ORDERED: MEROPENEM 500 MG in SODIUM CHLORIDE 0.9% 100 ML IV SCH (13:00)
[2020-05-20] MEDS ORDERED: DAPTOMYCIN 720 MG in SODIUM CHLORIDE 0.9% 100 ML IVPB SCH (13:00)
[2020-05-20] MEDS ORDERED: BISACODYL 10 MG SUPP PR PRN (13:00)
[2020-05-20] MEDS ORDERED: MONTELUKAST 10 MG TABLET PO PRN (13:00)
[2020-05-20] MEDS ORDERED: CALCIUM CARBONATE 500 MG TAB.CHEW PO PRN (13:00)
[2020-05-20] MEDS: OxyconTIN ER 40 MG TAB.ER PO SCH ×2 (13:00→20:46)
[2020-05-20] MEDS ORDERED: ONDANSETRON ODT 4 MG PO PRN (13:00)
[2020-05-20] MEDS ORDERED: ACETAMINOPHEN 325 MG TABLET PO PRN (13:00)
[2020-05-20] MEDS ORDERED: CETIRIZINE 10 MG TABLET PO PRN (13:00)
[2020-05-20] MEDS ORDERED: ONDANSETRON 2MG/ML, 2ML IVPush PRN (13:00)
[2020-05-20 13:15] VITALS: BP 134/68
[2020-05-20] MEDS: FERROUS SULFATE 325 MG TABLET PO SCH (13:27)
[2020-05-20] MEDS: OXYcodone IR 30 MG TABLET PO PRN ×3 (13:27→21:52)
[2020-05-20] MEDS: ENOXAPARIN 40 MG/0.4 ML SQ SCH (13:28)
[2020-05-20] MEDS ORDERED: OxyconTIN ER 10 MG TAB.ER ONE ×2 (14:34→20:41)
[2020-05-20] MEDS: DAPTOMYCIN 725 MG in SODIUM CHLORIDE 0.9% 100 ML IVPB SCH (15:31)
[2020-05-20] MEDS: LACTOBACILLUS CHEW TABLET PO SCH ×2 (17:44→20:46)
[2020-05-20] MEDS: MEROPENEM 1 GM in SODIUM CHLORIDE 0.9% 100 ML IV SCH (17:55)
[2020-05-20 20:09] VITALS: BP 151/72
[2020-05-20] MEDS: METOPROLOL TARTRATE 50 MG TAB PO SCH (20:45)
[2020-05-20] MEDS: LISINOPRIL 20 MG TABLET PO SCH (20:46)
[2020-05-20] MEDS: FAMOTIDINE 20 MG TABLET PO SCH (20:46)
[2020-05-20] MEDS: FENOFIBRATE 145 MG TABLET PO SCH (20:46)
[2020-05-20] MEDS: TRIAMCINOLONE ACETONIDE NAS SCH (20:46)
[2020-05-21 00:52] VITALS: BP 134/72
[2020-05-21] MEDS: OXYcodone IR 30 MG TABLET PO PRN ×6 (01:34→21:53)
[2020-05-21] MEDS: MEROPENEM 1 GM in SODIUM CHLORIDE 0.9% 100 ML IV SCH ×3 (01:34→17:38)
[2020-05-21] MEDS: INDOMETHACIN 50 MG CAPSULE PO PRN ×2 (05:34→20:11)
[2020-05-21 08:24] VITALS: BP 173/100
[2020-05-21] MEDS ORDERED: OxyconTIN ER 20 MG TAB.ER ONE (08:28)
[2020-05-21] MEDS ORDERED: OxyconTIN ER 10 MG TAB.ER ONE (08:29)
[2020-05-21] MEDS: LACTOBACILLUS CHEW TABLET PO SCH ×3 (08:33→20:09)
[2020-05-21] MEDS: AMLODIPINE 5 MG TABLET PO SCH (08:33)
[2020-05-21] MEDS: ALLOPURINOL 100 MG TABLET PO SCH (08:33)
[2020-05-21] MEDS: LISINOPRIL 20 MG TABLET PO SCH ×2 (08:33→20:10)
[2020-05-21] MEDS: FAMOTIDINE 20 MG TABLET PO SCH ×2 (08:34→20:11)
[2020-05-21] MEDS: SENNA/DOCUSATE TABLET PO SCH (08:34)
[2020-05-21] MEDS: METOPROLOL TARTRATE 50 MG TAB PO SCH ×2 (08:34→20:12)
[2020-05-21] MEDS: OxyconTIN ER 40 MG TAB.ER PO SCH (08:35)
[2020-05-21] MEDS: TRIAMCINOLONE ACETONIDE NAS SCH ×2 (08:42→20:12)
[2020-05-21] MEDS: ENOXAPARIN 40 MG/0.4 ML SQ SCH (13:03)
[2020-05-21 13:32] VITALS: BP 152/80
[2020-05-21] MEDS: DAPTOMYCIN 725 MG in SODIUM CHLORIDE 0.9% 100 ML IVPB SCH (14:50)
[2020-05-21 19:59] VITALS: BP 160/91
[2020-05-21] MEDS: OxyconTIN ER 10 MG TAB.ER PO SCH (20:10)
[2020-05-21] MEDS: FENOFIBRATE 145 MG TABLET PO SCH (20:11)
[2020-05-22] MEDS: OXYcodone IR 30 MG TABLET PO PRN ×7 (01:55→22:00)
[2020-05-22] MEDS: MEROPENEM 1 GM in SODIUM CHLORIDE 0.9% 100 ML IV SCH ×3 (01:55→17:56)
[2020-05-22 02:08] VITALS: BP 153/77
[2020-05-22 06:58] VITALS: BP 167/95
[2020-05-22] MEDS: LACTOBACILLUS CHEW TABLET PO SCH ×3 (08:51→21:30)
[2020-05-22] MEDS: SENNA/DOCUSATE TABLET PO SCH (08:52)
[2020-05-22] MEDS: OxyconTIN ER 10 MG TAB.ER PO SCH ×2 (08:52→20:57)
[2020-05-22] MEDS: METOPROLOL TARTRATE 50 MG TAB PO SCH ×2 (08:53→21:27)
[2020-05-22] MEDS: FAMOTIDINE 20 MG TABLET PO SCH ×2 (08:53→21:28)
[2020-05-22] MEDS: LISINOPRIL 20 MG TABLET PO SCH ×2 (08:53→21:27)
[2020-05-22] MEDS: AMLODIPINE 5 MG TABLET PO SCH (08:53)
[2020-05-22] MEDS: TRIAMCINOLONE ACETONIDE NAS SCH ×2 (08:54→21:00)
[2020-05-22] MEDS: ALLOPURINOL 100 MG TABLET PO SCH (08:54)
[2020-05-22] MEDS: POLYETHYLENE GLYCOL 17 GM PACKET PO PRN (09:07)
[2020-05-22] MEDS: FERROUS SULFATE 325 MG TABLET PO SCH (12:54)
[2020-05-22] MEDS: ENOXAPARIN 40 MG/0.4 ML SQ SCH (12:54)
[2020-05-22 13:30] VITALS: BP 138/83
[2020-05-22] MEDS: DAPTOMYCIN 725 MG in SODIUM CHLORIDE 0.9% 100 ML IVPB SCH (13:56)
[2020-05-22 20:01] VITALS: BP 160/78
[2020-05-22] MEDS: FENOFIBRATE 145 MG TABLET PO SCH (21:26)
[2020-05-23 01:38] VITALS: BP 148/80
[2020-05-23] MEDS: MEROPENEM 1 GM in SODIUM CHLORIDE 0.9% 100 ML IV SCH ×3 (02:04→18:14)
[2020-05-23 05:32] LABS: BASOPHILS % (AUTO) 1 % (0-1); EOSINOPHILS % (AUTO) 9 % (1-7); LYMPHOCYTES % (AUTO) 15 % (22-44); MEAN CORPUSCULAR HEMOGLOBIN 30.2 pg (27.5-34.5); MEAN CORPUSCULAR HGB CONC 34.9 g/dL (33.2-36.2); MEAN PLATELET VOLUME 7.1 fL (7.4-10.4); MONOCYTES % (AUTO) 15 % (2-9); NEUTROPHILS % (AUTO) 60 % (42-75); PLATELET COUNT 339 x10^3/uL (130-400); RED BLOOD COUNT 4.81 x10^6/uL (4.38-5.82); RED CELL DISTRIBUTION WIDTH 13.5 % (9.4-14.8)
[2020-05-23 05:35] LABS: HCT (SEDRATE) 41.7 % (39.2-51.8)
[2020-05-23 05:41] LABS: ALBUMIN 3.1 g/dL (3.4-5.0); ANION GAP 6 mmol/L (5-15); CALCIUM 8.6 mg/dL (8.5-10.1); CHLORIDE 109 mmol/L (98-107)
[2020-05-23 05:45] LABS: ALANINE AMINOTRANSFERASE 30 U/L (12-78); ALKALINE PHOSPHATASE 76 U/L (45-117); BILIRUBIN,TOTAL 0.6 mg/dL (0.2-1.0); C-REACTIVE PROTEIN, QUANT 0.36 mg/dL (0.02-0.49); CREATINE KINASE, TOTAL 91 U/L (39-308); CREATININE 0.78 mg/dL (0.7-1.3); TOTAL PROTEIN 5.8 g/dL (6.4-8.2)
[2020-05-23 05:47] LABS: MD NO
[2020-05-23] MEDS: OXYcodone IR 30 MG TABLET PO PRN ×4 (06:05→22:17)
[2020-05-23 08:11] VITALS: BP 158/83
[2020-05-23] MEDS: OxyconTIN ER 10 MG TAB.ER PO SCH ×2 (08:30→20:09)
[2020-05-23] MEDS: METOPROLOL TARTRATE 50 MG TAB PO SCH ×2 (08:31→20:10)
[2020-05-23] MEDS: LISINOPRIL 20 MG TABLET PO SCH ×2 (08:31→20:09)
[2020-05-23] MEDS: FAMOTIDINE 20 MG TABLET PO SCH ×2 (08:31→20:09)
[2020-05-23] MEDS: ALLOPURINOL 100 MG TABLET PO SCH (08:31)
[2020-05-23] MEDS: AMLODIPINE 5 MG TABLET PO SCH (08:31)
[2020-05-23] MEDS: LACTOBACILLUS CHEW TABLET PO SCH ×3 (08:32→20:09)
[2020-05-23] MEDS: TRIAMCINOLONE ACETONIDE NAS SCH ×2 (08:32→21:00)
[2020-05-23] MEDS ORDERED: PROPOFOL 10 MG/ML, 20ML ONE (12:15)
[2020-05-23] MEDS ORDERED: LIDOCAINE-MPF 2% ,5ML ONE (12:15)
[2020-05-23] MEDS ORDERED: DEXAMETHASONE 4 MG/ML, 1ML ONE ×2 (12:15)
[2020-05-23] MEDS ORDERED: EPHEDRINE 50 MG/ML, 1ML ONE (13:01)
[2020-05-23] MEDS ORDERED: FENTANYL PF 100 MCG/2ML ONE (14:00)
[2020-05-23] MEDS ORDERED: OXYcodone 5 MG/5 ML ORAL.SOL UDC ONE (14:25)
[2020-05-23] MEDS ORDERED: LABETALOL 5MG/ML, 20ML IV PRN (14:30)
[2020-05-23] MEDS ORDERED: PROMETHAZINE 25 MG/ML, 1ML IVPush PRN (14:30)
[2020-05-23] MEDS ORDERED: EPHEDRINE 50 MG/ML, 1ML IVPush PRN (14:30)
[2020-05-23] MEDS ORDERED: FENTANYL PF 100 MCG/2ML IV PRN (14:30)
[2020-05-23] MEDS ORDERED: ACETAMINOPHEN 325 MG TABLET PO PRN (14:30)
[2020-05-23] MEDS ORDERED: OXYcodone 5 MG/5 ML ORAL.SOL UDC PO PRN (14:30)
[2020-05-23] MEDS ORDERED: ONDANSETRON 2MG/ML, 2ML IVPush PRN (14:30)
[2020-05-23] MEDS ORDERED: HYDROmorphone 1 MG/ML, 1ML INJ IVPush PRN (14:30)
[2020-05-23] MEDS ORDERED: hydrALAzine 20 MG/ML, 1ML IV PRN (14:30)
[2020-05-23] MEDS: SENNA/DOCUSATE TABLET PO SCH (15:12)
[2020-05-23] MEDS: DAPTOMYCIN 725 MG in SODIUM CHLORIDE 0.9% 100 ML IVPB SCH (15:12)
[2020-05-23] MEDS: ENOXAPARIN 40 MG/0.4 ML SQ SCH (15:13)
[2020-05-23] MEDS: POLYETHYLENE GLYCOL 17 GM PACKET PO PRN (15:15)
[2020-05-23 15:41] VITALS: BP 142/74
[2020-05-23 18:43] VITALS: BP 133/72
[2020-05-23] MEDS: FENOFIBRATE 145 MG TABLET PO SCH (20:09)
[2020-05-24 00:36] VITALS: BP 145/53
[2020-05-24] MEDS: OXYcodone IR 30 MG TABLET PO PRN ×4 (02:20→14:55)
[2020-05-24] MEDS: MEROPENEM 1 GM in SODIUM CHLORIDE 0.9% 100 ML IV SCH ×2 (02:20→10:40)
[2020-05-24 08:08] VITALS: BP 162/92
[2020-05-24] MEDS: TRIAMCINOLONE ACETONIDE NAS SCH (09:00)
[2020-05-24] MEDS: LISINOPRIL 20 MG TABLET PO SCH (09:25)
[2020-05-24] MEDS: SENNA/DOCUSATE TABLET PO SCH (09:25)
[2020-05-24] MEDS: AMLODIPINE 5 MG TABLET PO SCH (09:25)
[2020-05-24] MEDS: METOPROLOL TARTRATE 50 MG TAB PO SCH (09:25)
[2020-05-24] MEDS: OxyconTIN ER 10 MG TAB.ER PO SCH (09:25)
[2020-05-24] MEDS: LACTOBACILLUS CHEW TABLET PO SCH (09:26)
[2020-05-24] MEDS: ALLOPURINOL 100 MG TABLET PO SCH (09:26)
[2020-05-24] MEDS: FAMOTIDINE 20 MG TABLET PO SCH (09:26)
[2020-05-24] MEDS: FERROUS SULFATE 325 MG TABLET PO SCH (13:00)
[2020-05-24 13:31] VITALS: BP 136/73
[2020-05-24] MEDS: DAPTOMYCIN 725 MG in SODIUM CHLORIDE 0.9% 100 ML IVPB SCH (14:28)
[2020-05-24] MEDS: ENOXAPARIN 40 MG/0.4 ML SQ SCH (14:30)
== END 2020-05-24 15:54 | disposition home or self-care (01) | DRG 384 ==
LOC: ED 08:42 → EDIP 09:52 → 3N 12:19
PROVIDERS: ADMIT Family Medicine; ATTEND Internal Medicine
DX: S31.000A Unspecified open wound of lower back and pelvis without penetration into retroperitoneum, initial encounter (principal); G89.29 Other chronic pain; M54.5 Low back pain; Z20.822 Contact with and (suspected) exposure to COVID-19; B96.5 Pseudomonas (aeruginosa) (mallei) (pseudomallei) as the cause of diseases classified elsewhere; F11.20 Opioid dependence, uncomplicated; G35 Multiple sclerosis; I10 Essential (primary) hypertension; J45.909 Unspecified asthma, uncomplicated; K21.9 Gastro-esophageal reflux disease without esophagitis; E66.9 Obesity, unspecified; M10.9 Gout, unspecified; M48.061 Spinal stenosis, lumbar region without neurogenic claudication; B95.62 Methicillin resistant Staphylococcus aureus infection as the cause of diseases classified elsewhere; X58.XXXA Exposure to other specified factors, initial encounter; N31.9 Neuromuscular dysfunction of bladder, unspecified; Z16.23 Resistance to quinolones and fluoroquinolones; Z80.7 Family history of other malignant neoplasms of lymphoid, hematopoietic and related tissues; Z88.6 Allergy status to analgesic agent; Z88.8 Allergy status to other drugs, medicaments and biological substances; Z68.34 Body mass index [BMI] 34.0-34.9, adult; Z88.5 Allergy status to narcotic agent; Y93.89 Activity, other specified; Y92.89 Other specified places as the place of occurrence of the external cause; Y99.8 Other external cause status
CPT/HCPCS: 36415; 72197; 80053; 82550; 83605; 85025; 85651; 86140; 87040; 87070; 87186; 87205; 87635; 96365; 96375; 99285; G0378; J0878; J1100; J1170; J1650; J2185; J2405; J2704; J3010

== ENCOUNTER 2020-06-17 07:39 | Outpatient (CLI) | payer MEDICAID | END 2020-06-17 23:59 | disposition home or self-care (01) | LOC: WOUND 07:39 | PROVIDERS: ATTEND Internal Medicine | DX: T81.31XD Disruption of external operation (surgical) wound, not elsewhere classified, subsequent encounter (principal); I87.312 Chronic venous hypertension (idiopathic) with ulcer of left lower extremity; L97.821 Non-pressure chronic ulcer of other part of left lower leg limited to breakdown of skin; I87.301 Chronic venous hypertension (idiopathic) without complications of right lower extremity; G35 Multiple sclerosis; E78.2 Mixed hyperlipidemia; M46.22 Osteomyelitis of vertebra, cervical region; M46.26 Osteomyelitis of vertebra, lumbar region; K21.9 Gastro-esophageal reflux disease without esophagitis; I25.10 Atherosclerotic heart disease of native coronary artery without angina pectoris; M10.9 Gout, unspecified; M81.0 Age-related osteoporosis without current pathological fracture; G47.00 Insomnia, unspecified; G47.30 Sleep apnea, unspecified; F41.9 Anxiety disorder, unspecified; M48.061 Spinal stenosis, lumbar region without neurogenic claudication; J45.909 Unspecified asthma, uncomplicated; F11.20 Opioid dependence, uncomplicated; E66.9 Obesity, unspecified; Z68.31 Body mass index [BMI] 31.0-31.9, adult; Z87.891 Personal history of nicotine dependence; Z96.653 Presence of artificial knee joint, bilateral; Z86.14 Personal history of Methicillin resistant Staphylococcus aureus infection; Z88.5 Allergy status to narcotic agent; Z88.6 Allergy status to analgesic agent; Z88.8 Allergy status to other drugs, medicaments and biological substances; Y83.8 Other surgical procedures as the cause of abnormal reaction of the patient, or of later complication, without mention of misadventure at the time of the procedure | CPT/HCPCS: 97597 ==

== ENCOUNTER → 2020-06-24 | Outpatient (CLI) | payer MEDICAID | END | disposition home or self-care (01) | LOC: WOUND 08:00 | PROVIDERS: ATTEND Internal Medicine | DX: T81.31XD Disruption of external operation (surgical) wound, not elsewhere classified, subsequent encounter (principal); I87.312 Chronic venous hypertension (idiopathic) with ulcer of left lower extremity; L97.821 Non-pressure chronic ulcer of other part of left lower leg limited to breakdown of skin; I87.301 Chronic venous hypertension (idiopathic) without complications of right lower extremity; M46.22 Osteomyelitis of vertebra, cervical region; M46.26 Osteomyelitis of vertebra, lumbar region; G35 Multiple sclerosis; E78.2 Mixed hyperlipidemia; K21.9 Gastro-esophageal reflux disease without esophagitis; I25.10 Atherosclerotic heart disease of native coronary artery without angina pectoris; M10.9 Gout, unspecified; M81.0 Age-related osteoporosis without current pathological fracture; G47.00 Insomnia, unspecified; G47.30 Sleep apnea, unspecified; F41.9 Anxiety disorder, unspecified; M48.061 Spinal stenosis, lumbar region without neurogenic claudication; G89.29 Other chronic pain; F11.20 Opioid dependence, uncomplicated; J45.909 Unspecified asthma, uncomplicated; E66.9 Obesity, unspecified; Z68.31 Body mass index [BMI] 31.0-31.9, adult; Z87.891 Personal history of nicotine dependence; Z96.653 Presence of artificial knee joint, bilateral; Z86.14 Personal history of Methicillin resistant Staphylococcus aureus infection; Z90.49 Acquired absence of other specified parts of digestive tract; Z88.6 Allergy status to analgesic agent; Z88.5 Allergy status to narcotic agent; Z88.8 Allergy status to other drugs, medicaments and biological substances; Z88.1 Allergy status to other antibiotic agents; Z79.01 Long term (current) use of anticoagulants; Z79.899 Other long term (current) drug therapy; Z20.822 Contact with and (suspected) exposure to COVID-19; Y83.8 Other surgical procedures as the cause of abnormal reaction of the patient, or of later complication, without mention of misadventure at the time of the procedure | CPT/HCPCS: 97597 ==

== ENCOUNTER 2020-07-01 07:39 | Outpatient (CLI) | payer MEDICAID | END 2020-07-01 23:59 | disposition home or self-care (01) | LOC: WOUND 07:39 | PROVIDERS: ATTEND Internal Medicine | DX: T81.31XD Disruption of external operation (surgical) wound, not elsewhere classified, subsequent encounter (principal); I87.313 Chronic venous hypertension (idiopathic) with ulcer of bilateral lower extremity; L97.821 Non-pressure chronic ulcer of other part of left lower leg limited to breakdown of skin; L97.811 Non-pressure chronic ulcer of other part of right lower leg limited to breakdown of skin; M46.22 Osteomyelitis of vertebra, cervical region; M46.26 Osteomyelitis of vertebra, lumbar region; G35 Multiple sclerosis; E78.2 Mixed hyperlipidemia; K21.9 Gastro-esophageal reflux disease without esophagitis; I25.10 Atherosclerotic heart disease of native coronary artery without angina pectoris; M10.9 Gout, unspecified; M81.0 Age-related osteoporosis without current pathological fracture; G47.00 Insomnia, unspecified; G47.30 Sleep apnea, unspecified; F41.9 Anxiety disorder, unspecified; M48.061 Spinal stenosis, lumbar region without neurogenic claudication; G89.29 Other chronic pain; F11.20 Opioid dependence, uncomplicated; J45.909 Unspecified asthma, uncomplicated; E66.9 Obesity, unspecified; Z68.31 Body mass index [BMI] 31.0-31.9, adult; Z87.891 Personal history of nicotine dependence; Z96.653 Presence of artificial knee joint, bilateral; Z86.14 Personal history of Methicillin resistant Staphylococcus aureus infection; Z90.49 Acquired absence of other specified parts of digestive tract; Z88.6 Allergy status to analgesic agent; Z88.5 Allergy status to narcotic agent; Z88.8 Allergy status to other drugs, medicaments and biological substances; Z88.1 Allergy status to other antibiotic agents; Z79.01 Long term (current) use of anticoagulants; Z79.899 Other long term (current) drug therapy; Z20.822 Contact with and (suspected) exposure to COVID-19; Y83.8 Other surgical procedures as the cause of abnormal reaction of the patient, or of later complication, without mention of misadventure at the time of the procedure | CPT/HCPCS: 97597 ==

== ENCOUNTER → 2020-07-22 | Outpatient (CLI) | payer MEDICAID | END | disposition home or self-care (01) | LOC: WOUND 07:50 | PROVIDERS: ATTEND Internal Medicine | DX: T81.31XD Disruption of external operation (surgical) wound, not elsewhere classified, subsequent encounter (principal); I87.313 Chronic venous hypertension (idiopathic) with ulcer of bilateral lower extremity; L97.821 Non-pressure chronic ulcer of other part of left lower leg limited to breakdown of skin; L97.811 Non-pressure chronic ulcer of other part of right lower leg limited to breakdown of skin; M46.22 Osteomyelitis of vertebra, cervical region; M46.26 Osteomyelitis of vertebra, lumbar region; G35 Multiple sclerosis; E78.2 Mixed hyperlipidemia; K21.9 Gastro-esophageal reflux disease without esophagitis; I25.10 Atherosclerotic heart disease of native coronary artery without angina pectoris; M10.9 Gout, unspecified; M81.0 Age-related osteoporosis without current pathological fracture; G47.00 Insomnia, unspecified; G47.30 Sleep apnea, unspecified; F41.9 Anxiety disorder, unspecified; M48.061 Spinal stenosis, lumbar region without neurogenic claudication; G89.29 Other chronic pain; F11.20 Opioid dependence, uncomplicated; J45.909 Unspecified asthma, uncomplicated; E66.9 Obesity, unspecified; Z68.31 Body mass index [BMI] 31.0-31.9, adult; Z87.891 Personal history of nicotine dependence; Z96.653 Presence of artificial knee joint, bilateral; Z86.14 Personal history of Methicillin resistant Staphylococcus aureus infection; Z90.49 Acquired absence of other specified parts of digestive tract; Z88.6 Allergy status to analgesic agent; Z88.5 Allergy status to narcotic agent; Z88.8 Allergy status to other drugs, medicaments and biological substances; Z88.1 Allergy status to other antibiotic agents; Z79.01 Long term (current) use of anticoagulants; Z79.899 Other long term (current) drug therapy; Z20.822 Contact with and (suspected) exposure to COVID-19; Y83.8 Other surgical procedures as the cause of abnormal reaction of the patient, or of later complication, without mention of misadventure at the time of the procedure | CPT/HCPCS: 97597 ==

== ENCOUNTER → 2020-08-05 | Outpatient (CLI) | payer MEDICAID | END | disposition home or self-care (01) | LOC: WOUND 07:45 | PROVIDERS: ATTEND Internal Medicine | DX: T81.31XD Disruption of external operation (surgical) wound, not elsewhere classified, subsequent encounter (principal); S81.802A Unspecified open wound, left lower leg, initial encounter; S91.001A Unspecified open wound, right ankle, initial encounter; I87.313 Chronic venous hypertension (idiopathic) with ulcer of bilateral lower extremity; L97.821 Non-pressure chronic ulcer of other part of left lower leg limited to breakdown of skin; L97.811 Non-pressure chronic ulcer of other part of right lower leg limited to breakdown of skin; M46.22 Osteomyelitis of vertebra, cervical region; M46.26 Osteomyelitis of vertebra, lumbar region; G35 Multiple sclerosis; E78.2 Mixed hyperlipidemia; K21.9 Gastro-esophageal reflux disease without esophagitis; I25.10 Atherosclerotic heart disease of native coronary artery without angina pectoris; M10.9 Gout, unspecified; M81.0 Age-related osteoporosis without current pathological fracture; G47.00 Insomnia, unspecified; G47.30 Sleep apnea, unspecified; F41.9 Anxiety disorder, unspecified; M48.061 Spinal stenosis, lumbar region without neurogenic claudication; G89.29 Other chronic pain; F11.20 Opioid dependence, uncomplicated; J45.909 Unspecified asthma, uncomplicated; E66.9 Obesity, unspecified; Z68.31 Body mass index [BMI] 31.0-31.9, adult; Z87.891 Personal history of nicotine dependence; Z96.653 Presence of artificial knee joint, bilateral; Z86.14 Personal history of Methicillin resistant Staphylococcus aureus infection; Z90.49 Acquired absence of other specified parts of digestive tract; Z88.6 Allergy status to analgesic agent; Z88.5 Allergy status to narcotic agent; Z88.8 Allergy status to other drugs, medicaments and biological substances; Z88.1 Allergy status to other antibiotic agents; Z79.01 Long term (current) use of anticoagulants; Z79.899 Other long term (current) drug therapy; Z20.822 Contact with and (suspected) exposure to COVID-19; X58.XXXA Exposure to other specified factors, initial encounter; Y93.89 Activity, other specified; Y92.89 Other specified places as the place of occurrence of the external cause; Y99.8 Other external cause status; Y83.8 Other surgical procedures as the cause of abnormal reaction of the patient, or of later complication, without mention of misadventure at the time of the procedure | CPT/HCPCS: 97597 ==

== ENCOUNTER → 2020-08-19 | Outpatient (CLI) | payer MEDICAID | END | disposition home or self-care (01) | LOC: WOUND 08:00 | PROVIDERS: ATTEND Internal Medicine | DX: T81.31XD Disruption of external operation (surgical) wound, not elsewhere classified, subsequent encounter (principal); S81.802D Unspecified open wound, left lower leg, subsequent encounter; S91.001D Unspecified open wound, right ankle, subsequent encounter; I87.313 Chronic venous hypertension (idiopathic) with ulcer of bilateral lower extremity; L97.821 Non-pressure chronic ulcer of other part of left lower leg limited to breakdown of skin; L97.811 Non-pressure chronic ulcer of other part of right lower leg limited to breakdown of skin; M46.22 Osteomyelitis of vertebra, cervical region; M46.26 Osteomyelitis of vertebra, lumbar region; G35 Multiple sclerosis; E78.2 Mixed hyperlipidemia; K21.9 Gastro-esophageal reflux disease without esophagitis; I25.10 Atherosclerotic heart disease of native coronary artery without angina pectoris; M10.9 Gout, unspecified; M81.0 Age-related osteoporosis without current pathological fracture; G47.00 Insomnia, unspecified; G47.30 Sleep apnea, unspecified; F41.9 Anxiety disorder, unspecified; M48.061 Spinal stenosis, lumbar region without neurogenic claudication; G89.29 Other chronic pain; F11.20 Opioid dependence, uncomplicated; J45.909 Unspecified asthma, uncomplicated; E66.9 Obesity, unspecified; Z68.31 Body mass index [BMI] 31.0-31.9, adult; Z87.891 Personal history of nicotine dependence; Z96.653 Presence of artificial knee joint, bilateral; Z86.14 Personal history of Methicillin resistant Staphylococcus aureus infection; Z90.49 Acquired absence of other specified parts of digestive tract; Z88.6 Allergy status to analgesic agent; Z88.5 Allergy status to narcotic agent; Z88.8 Allergy status to other drugs, medicaments and biological substances; Z88.1 Allergy status to other antibiotic agents; Z79.01 Long term (current) use of anticoagulants; Z79.899 Other long term (current) drug therapy; Z20.822 Contact with and (suspected) exposure to COVID-19; X58.XXXD Exposure to other specified factors, subsequent encounter; Y83.8 Other surgical procedures as the cause of abnormal reaction of the patient, or of later complication, without mention of misadventure at the time of the procedure | CPT/HCPCS: 97597 ==

== ENCOUNTER 2020-12-21 17:26 | Emergency (ER) | payer MEDICAID ==
[~2020-12-21] VITALS: Ht 190.5 cm; Wt 120.0 kg
[2020-12-21 17:30] VITALS: BP 109/71
== END 2020-12-21 22:28 ==
LOC: ED 21:00
DX: K59.00 Constipation, unspecified (principal); R10.84 Generalized abdominal pain; F11.10 Opioid abuse, uncomplicated
CPT/HCPCS: 36415; 74176; 80053; 81001; 85025; 96372; 96374; 96376; 99285; J3010